=== PATIENT | female | born 1990 | race Caucasian/White ===

== ENCOUNTER 2019-09-01 10:52 | Observation (INO) ==
[2019-09-01] MEDS ORDERED: OPTIRAY 320 125ml IV PRN (11:33)
--- NOTE | 2019-09-01 11:47 | CT Scan Report ---
CT SCAN OF THE BRAIN WITHOUT IV CONTRAST CLINICAL HISTORY: Slurred speech. COMPARISON STUDY: CT of the brain dated 08/30/2019. TECHNIQUE: Unenhanced axial CT scan of the brain is performed from the vertex to the skull base. A d ose lowering technique was utilized adhering to the principles of ALARA. CT DOSE: 1064.47 mGy.cm FINDINGS: Brain parenchyma: The brain parenchyma is normal in appearance. There is no hemorrhage, mass effect, or evidence of acute territorial ischemia by CT criteria. Torre-white matter differentiation is preser rk. No extra-axial fluid collection is seen. Ventricles, sulci, cisterns: Normal in configuration. Intracranial vasculature: The visualized intracranial vasculature at the skull base is normal in appe arance. Calvarium: Unremarkable. Sinuses and mastoids: The visualized paranasal sinuses are clear. The mastoid air cells are well pneu matized. Orbits: The bony orbits are grossly intact. IMPRESSION: No acute intracranial abnormality. ACT 112: Negative or not required by law. Electronically signed by: Johnathon Lin M.D. 09/01/2019 11:45 AM
[2019-09-01] MEDS ORDERED: levETIRAcetam 1,500 MG in 0.9 % SODIUM CHLORIDE 100 ML IV STA (11:48)
--- NOTE | 2019-09-01 11:51 | CT Scan Report ---
CT angio neck with con HISTORY: Mental status change slurred speech TECHNIQUE: Multiaxial CT angiography of the neck was performed IV contrast: 120 cc nonionic All christian urements were calculated based on NASCET criteria. Maximum intensity projection images were also obt ained. A dose lowering technique was utilized adhering to the principles of ALARA. COMPARISON STUDY: None. FINDINGS: The aortic arch and proximal great vessels are widely patent. There is no significant sten osis, occlusion, or dissection identified within the bilateral common carotid, internal carotid, or v ertebral arteries. Relatively small caliber right vertebral vessel presumably on a congenital basis. IMPRESSION: No significant stenosis, occlusion, or dissection identified within the carotid or vertebral arteries . Small caliber right vertebral artery presumably on a congenital basis. ACT 112: Negative or not required by law. The above report was generated using voice recognition software. It may contain grammatical, syntax or spelling errors. Electronically signed by: Philipp Mendiola M.D. 09/01/2019 11:50 AM
--- NOTE | 2019-09-01 12:00 | CT Scan Report ---
CT ANGIOGRAM OF THE BRAIN CLINICAL HISTORY: Slurred speech. COMPARISON STUDY: Unenhanced CT of the brain performed concurrently on 09/01/2019. TECHNIQUE: Following the IV administration of 118 cc of Optiray 320, CT angiogram of the brain was pe rformed from the skull base to the vertex. Images are reviewed in the axial, sagittal, and coronal pl anes. 3-D MIPS images are created and assessed. IV contrast was administered without complication. A dose lowering technique was utilized adhering to the principles of ALARA. FINDINGS: Brain parenchyma: The brain parenchyma is normal in appearance. There is no hemorrhage, mass effect, or evidence of acute territorial ischemia by CT criteria. There is no evidence of enhancing mass lesi on on the angiogram phase images. No extra-axial fluid collection is seen. Torre-white matter differen tiation is preserved. Ventricles, sulci, and cisterns: Normal in configuration. CT angiogram of the brain: There is origin of the left posterior cerebral artery. The right P1 segment is diminutive. The internal carotid arteries are widely patent, as are the anterior and middl e cerebral arteries. The vertebrobasilar system and posterior cerebral arteries are widely patent. Th e left vertebral artery is dominant. The basilar artery and the right vertebral artery are diminutive . There is no aneurysm, high-grade stenosis, or focal vessel cutoff identified throughout the intracr anial circulation. Dural sinuses: Clear as visualized. Orbits: The bony orbits are intact. The orbital contents are normal as visualized. Sinuses and mastoids: A 1.8 cm retention cyst is noted in the right maxillary antrum. The remaining p aranasal sinuses are clear. The mastoid air cells are well pneumatized. Calvarium: Unremarkable. IMPRESSION: 1. There is no hemorrhage, mass effect, or evidence of acute territorial ischemia by CT criteria noti ng angiographic phase technique. 2. Unremarkable CT angiogram of the brain. ACT 112: Negative or not required by law. Electronically signed by: Johnathon Lin M.D. 09/01/2019 11:59 AM
[2019-09-01 12:14] LABS: Basophils # (auto) 0.04 K/uL (0-0.2); Basophils % (auto) 0.4 %; Eosinophils # (auto) 0.07 K/uL (0-0.5); Eosinophils % (auto) 0.6 %; Hematocrit (blood only) 39.6 % (37-47); Hemoglobin 12.9 g/dL (12.0-16.0); Immature Granulocytes # (auto) 0.02 K/uL (0.00-0.02); Immature Granulocytes % (auto) 0.2 %; Lymphocytes # (auto) 1.66 K/uL (1.2-3.4); Lymphocytes % (auto) 15.3 %; Mean Corpuscular Hemoglobin 28.9 pg (25-34); Mean Corpuscular Hgb Conc 32.6 g/dL (32-36); Mean Corpuscular Volume 88.6 fL (80-100); Mean Platelet Volume 11.2 fL (7.4-10.4); Monocytes # (auto) 0.66 K/uL (0.11-0.59); Monocytes % (auto) 6.1 %; Neutrophils # (auto) 8.38 K/uL (1.4-6.5); Neutrophils % (auto) 77.4 %; Platelet Count 351 K/uL (130-400); RDW Coefficient of Variation 14.3 % (11.5-14.5); RDW Standard Deviation 46.2 fL (36.4-46.3); Red Blood Count 4.47 M/uL (4.2-5.4); White Blood Count 10.83 K/uL (4.8-10.8)
[2019-09-01 12:24] LABS: INR 1.1 (0.9-1.1); Partial Thromboplastin Ratio 0.9; Prothrombin Time 11.1 Seconds (9.0-12.0)
--- NOTE | 2019-09-01 12:24 | Emergency Department Note ---
History of Present Illness General Chief complaint: Syncope History of Present Illness This patient is a 28-year-old female who presents the emergency department via ambulance for evaluation of a near syncopal episode that occurred this morning. The patient reports that she started uncontrollably crying at around 9 AM this morning. She reports not feeling sad. Shortly thereafter, the patient went to work. She slumped to the ground. She was reportedly unresponsive. No injuries were reported. The patient had a similar episode 2 days ago. She came to the emergency department. A work-up including imaging was performed. She since then followed up with neurology. The patient has an EEG pending. She reports a mild frontal headache, which she related to the crying this morning. She has not taken anything [id number] for his symptoms. Home Medications Home Medications Medication Instructions Recorded Confirmed Type famotidine [Pepcid AC] 10 mg PO DAILY PRN 08/30/19 09/01/19 History omeprazole magnesium [Prilosec OTC] 20 mg PO DAILY PRN 08/30/19 09/01/19 History Allergies Allergy/AdvReac Type Severity Reaction Status Date / Time nickel Allergy Intermediate Skin Verified 09/01/19 12:34 Irritations Past Med/Surg History Medical History Acid reflux Surgical History No pertinent past surgical history Social History Preferred Language: Kiswahili Communication Ability: Effective Beliefs That Will Affect Care: None marital status: Single 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 [employer] Other Information That Helps Us Care for You: No Feels Safe at Home: Yes Safety Concerns: Feels Safe At This Time Smoking Status: Former smoker Smoking End Date: 2011 ; Hx Alcohol Use: Yes (Occasional) Alcohol type: wine Alcohol Intake Frequency: Weekly Hx Substance Use: No Review of Systems A total of 10 systems reviewed and were otherwise negative Physical Exam Vital Signs Vital Signs - 24 hr 09/01/19 12:30 09/01/19 13:30 Pulse Rate 77 73 Pulse Rate from SpO2 Sensor 78 74 Respiratory Rate 14 20 Blood Pressure 132/91 134/82 Blood Pressure Mean 100 104 Pulse Oximetry 98 99 Oxygen Delivery Method Room Air Room Air Constitutional WD/WN, vitals as above Eyes EOM intact bilaterally ENMT external ear and nose normal, oropharynx normal Neck trachea midline Respiratory normal respiratory effort, lungs clear to auscultation Cardiovascular RRR, no murmur, no edema Gastrointestinal (Abdomen) normal bowel sounds, soft, nontender, no hepatosplenomegaly Musculoskeletal no cyanosis or clubbing, extremities motor strength 5/5 Skin no rashes, warm and dry Neurologic Alert and oriented x3. Slurred and stuttering speech noted. Cranial nerves appear to be intact. Rapid alternating movements intact. No focal motor deficits. Psychiatric Acting appropriately Course Course Patient was seen and examined Vital signs including blood pressure were reviewed I discussed the case with my supervising physician. A stroke alert was called. I spoke with Dr. Chun, neurology from [facility]. The patient proceeded to imaging where she had a seizure that was reported as her right arm shaking and her eyes fluttering. This lasted a few seconds. When the patient returned, she was reevaluated. She was coherent and stable. Her speech was improved. The patient was also evaluated by my supervising physician. She was ordered Keppra [facility] evaluate the patient for likely inpatient management. The patient remained stable in the emergency department. Consultations Consultation #1: Dr. Chun [facility] Administered Medications Gadobutrol (Gadavist 65ml) 7.5 ml IV ONCE PRN PRN Reason: Interaction Checking Stop: 09/05/19 15:17 Last Admin: 09/01/19 15:19 Dose: 7.5 ml Documented by: [id number] Levetiracetam 500 mg/ Sodium (Chloride) 105 mls @ 420 mls/hr IV BID JOCELYN Stop: 10/01/19 20:59 Last Infusion: 09/01/19 22:12 Dose: 0 mls/hr Documented by: [id number] Admin: 09/01/19 21:25 Dose: 420 mls/hr Documented by: [id number] Discontinued Medications Levetiracetam 1,500 mg/ Sodium (Chloride) 115 mls @ 440 mls/hr IV NOW STA Stop: 09/01/19 12:02 Last Infusion: 09/01/19 12:35 Dose: 0 mls/hr Documented by: [id number] Admin: 09/01/19 12:10 Dose: 440 mls/hr Documented by: [id number] Sodium Chloride (Nss 1000ml) 1,000 mls @ 999 mls/hr IV .Q1H1M ONE Stop: 09/01/19 14:08 Last Infusion: 09/01/19 14:23 Dose: 0 mls/hr Documented by: [id number] Admin: 09/01/19 13:22 Dose: 999 mls/hr Documented by: [id number] Levetiracetam 500 mg/ Dextrose 105 mls @ 420 mls/hr IV NOW ONE Stop: 09/02/19 09:14 Last Infusion: 09/02/19 09:28 Dose: 0 mls/hr Documented by: [id number] Admin: 09/02/19 09:01 Dose: 420 mls/hr Documented by: [id number] Ioversol (Optiray 320 125ml) 118 ml IV ONCE PRN PRN Reason: Interaction Checking Stop: 09/05/19 11:32 Last Admin: 09/01/19 11:33 Dose: 118 ml Documented by: [id number] Medical Decision Making Medical Records Attestation: I reviewed the patient's medical records. Home Medications Current Medication List: was personally reviewed by me Laboratory Data Attestation: I reviewed the patient's lab results. Result diagrams: 09/01/19 11:48 09/02/19 05:57 Lab Results 09/01/19 09/01/19 09/01/19 Range/Units 11:48 11:48 11:48 WBC 10.83 H (4.8-10.8) K/uL RBC 4.47 (4.2-5.4) M/uL Hgb 12.9 (12.0-16.0) g/dL Hct 39.6 (37-47) % MCV 88.6 (80-100) fL MCH 28.9 (25-34) pg MCHC 32.6 (32-36) g/dL RDW Std Deviation 46.2 (36.4-46.3) fL RDW Coeff of Aparna 14.3 (11.5-14.5) % Plt Count 351 (130-400) K/uL MPV 11.2 H (7.4-10.4) fL Immature Gran % (Auto) 0.2 % Neut % (Auto) 77.4 % Lymph % (Auto) 15.3 % [place] % (Auto) 6.1 % Eos % (Auto) 0.6 % Baso % (Auto) 0.4 % Neut # (Auto) 8.38 H (1.4-6.5) K/uL Lymph # (Auto) 1.66 (1.2-3.4) K/uL [place] # (Auto) 0.66 H (0.11-0.59) K/uL Eos # (Auto) 0.07 (0-0.5) K/uL Baso # (Auto) 0.04 (0-0.2) K/uL Immature Gran # (Auto) 0.02 (0.00-0.02) K/uL Peripher Smr Path Cons ESR (0-21) mm/hr PT 11.1 (9.0-12.0) Seconds INR 1.1 (0.9-1.1) APTT 26.0 (21.0-31.0) Seconds PTT Ratio 0.9 Sodium 140 (136-145) mmol/L Potassium 4.6 D (3.5-5.1) mmol/L Chloride 107 (98-107) mmol/L Carbon Dioxide 22 (21-32) mmol/L Anion Gap 11.0 (3-11) BUN 19 H D (7-18) mg/dl Creatinine 0.80 (0.6-1.2) mg/dl Est Cr Clr Drug Dosing 98.3 ml/min Est GFR ( Amer) 115.5 Est GFR (Non-Af Amer) 99.6 BUN/Creatinine Ratio 23.1 H (10-20) Glucose 79 (70-99) mg/dl Calcium 8.4 L (8.5-10.1) mg/dl Magnesium 2.2 (1.8-2.4) mg/dl Total Bilirubin 0.3 (0.2-1) mg/dl AST 10 L (15-37) U/L ALT 15 (12-78) U/L Alkaline Phosphatase 77 (45-117) U/L CK-MB (CK-2) < 1.0 (0.5-3.6) ng/ml Troponin I < 0.015 (0-0.045) ng/ml C-Reactive Protein (0-0.29) mg/dl Total Protein 7.1 (6.4-8.2) gm/dl Albumin 3.3 L (3.4-5.0) gm/dl Globulin 3.8 (2.5-4.0) gm/dl Albumin/Globulin Ratio 0.9 (0.9-2) TSH (0.300-4.500) uIu/ml Urine Color Urine Appearance (Clear) Urine pH (4.5-7.5) Ur Specific Falcon (1.000-1.030) Urine Protein (Negative) Urine Glucose (UA) (Negative) Urine Ketones (Negative) Urine Blood (Negative) Urine Nitrite (Negative) Urine Bilirubin (Negative) Urine Urobilinogen (Negative) Ur Leukocyte Esterase (Negative) Urine Opiates Screen (Neg) Ur Methadone, Qual (Neg) Urine Barbiturates (Neg) Ur Phencyclidine (PCP) (Neg) U Amphetamin/Meth Scrn (Neg) MDMA (Ecstasy) Screen (Neg) U Benzodiazepines Scrn (Neg) Ur Cocaine Metabolite (Neg) U Marijuana (THC) Screen (Neg) Ethyl Alcohol mg/dL (0-3) mg/dl 09/01/19 09/01/19 09/01/19 Range/Units 11:48 11:48 12:10 WBC (4.8-10.8) K/uL RBC (4.2-5.4) M/uL Hgb (12.0-16.0) g/dL Hct (37-47) % MCV (80-100) fL MCH (25-34) pg MCHC (32-36) g/dL RDW Std Deviation (36.4-46.3) fL RDW Coeff of Aparna (11.5-14.5) % Plt Count (130-400) K/uL MPV (7.4-10.4) fL Immature Gran % (Auto) % Neut % (Auto) % Lymph % (Auto) % [place] % (Auto) % Eos % (Auto) % Baso % (Auto) % Neut # (Auto) (1.4-6.5) K/uL Lymph # (Auto) (1.2-3.4) K/uL [place] # (Auto) (0.11-0.59) K/uL Eos # (Auto) (0-0.5) K/uL Baso # (Auto) (0-0.2) K/uL Immature Gran # (Auto) (0.00-0.02) K/uL Peripher Smr Path Cons ESR 16 (0-21) mm/hr PT (9.0-12.0) Seconds INR (0.9-1.1) APTT (21.0-31.0) Seconds PTT Ratio Sodium (136-145) mmol/L Potassium (3.5-5.1) mmol/L Chloride (98-107) mmol/L Carbon Dioxide (21-32) mmol/L Anion Gap (3-11) BUN (7-18) mg/dl Creatinine (0.6-1.2) mg/dl Est Cr Clr Drug Dosing ml/min Est GFR ( Amer) Est GFR (Non-Af Amer) BUN/Creatinine Ratio (10-20) Glucose (70-99) mg/dl Calcium (8.5-10.1) mg/dl Magnesium (1.8-2.4) mg/dl Total Bilirubin (0.2-1) mg/dl AST (15-37) U/L ALT (12-78) U/L Alkaline Phosphatase (45-117) U/L CK-MB (CK-2) (0.5-3.6) ng/ml Troponin I (0-0.045) ng/ml C-Reactive Protein 0.45 H (0-0.29) mg/dl Total Protein (6.4-8.2) gm/dl Albumin (3.4-5.0) gm/dl Globulin (2.5-4.0) gm/dl Albumin/Globulin Ratio (0.9-2) TSH 0.783 (0.300-4.500) uIu/ml Urine Color Urine Appearance (Clear) Urine pH (4.5-7.5) Ur Specific Falcon (1.000-1.030) Urine Protein (Negative) Urine Glucose (UA) (Negative) Urine Ketones (Negative) Urine Blood (Negative) Urine Nitrite (Negative) Urine Bilirubin (Negative) Urine Urobilinogen (Negative) Ur Leukocyte Esterase (Negative) Urine Opiates Screen (Neg) Ur Methadone, Qual (Neg) Urine Barbiturates (Neg) Ur Phencyclidine (PCP) (Neg) U Amphetamin/Meth Scrn (Neg) MDMA (Ecstasy) Screen (Neg) U Benzodiazepines Scrn (Neg) Ur Cocaine Metabolite (Neg) U Marijuana (THC) Screen (Neg) Ethyl Alcohol mg/dL < 3.0 (0-3) mg/dl 09/01/19 09/01/19 Range/Units 12:45 12:45 WBC (4.8-10.8) K/uL RBC (4.2-5.4) M/uL Hgb (12.0-16.0) g/dL Hct (37-47) % MCV (80-100) fL MCH (25-34) pg MCHC (32-36) g/dL RDW Std Deviation (36.4-46.3) fL RDW Coeff of Aparna (11.5-14.5) % Plt Count (130-400) K/uL MPV (7.4-10.4) fL Immature Gran % (Auto) % Neut % (Auto) % Lymph % (Auto) % [place] % (Auto) % Eos % (Auto) % Baso % (Auto) % Neut # (Auto) (1.4-6.5) K/uL Lymph # (Auto) (1.2-3.4) K/uL [place] # (Auto) (0.11-0.59) K/uL Eos # (Auto) (0-0.5) K/uL Baso # (Auto) (0-0.2) K/uL Immature Gran # (Auto) (0.00-0.02) K/uL Peripher Smr Path Cons ESR (0-21) mm/hr PT (9.0-12.0) Seconds INR (0.9-1.1) APTT (21.0-31.0) Seconds PTT Ratio Sodium (136-145) mmol/L Potassium (3.5-5.1) mmol/L Chloride (98-107) mmol/L Carbon Dioxide (21-32) mmol/L Anion Gap (3-11) BUN (7-18) mg/dl Creatinine (0.6-1.2) mg/dl Est Cr Clr Drug Dosing ml/min Est GFR ( Amer) Est GFR (Non-Af Amer) BUN/Creatinine Ratio (10-20) Glucose (70-99) mg/dl Calcium (8.5-10.1) mg/dl Magnesium (1.8-2.4) mg/dl Total Bilirubin (0.2-1) mg/dl AST (15-37) U/L ALT (12-78) U/L Alkaline Phosphatase (45-117) U/L CK-MB (CK-2) (0.5-3.6) ng/ml Troponin I (0-0.045) ng/ml C-Reactive Protein (0-0.29) mg/dl Total Protein (6.4-8.2) gm/dl Albumin (3.4-5.0) gm/dl Globulin (2.5-4.0) gm/dl Albumin/Globulin Ratio (0.9-2) TSH (0.300-4.500) uIu/ml Urine Color Yellow Urine Appearance Clear (Clear) Urine pH 5.0 (4.5-7.5) Ur Specific Falcon > 1.045 H (1.000-1.030) Urine Protein Negative (Negative) Urine Glucose (UA) Negative (Negative) Urine Ketones Trace H (Negative) Urine Blood Negative (Negative) Urine Nitrite Negative (Negative) Urine Bilirubin Negative (Negative) Urine Urobilinogen Negative (Negative) Ur Leukocyte Esterase Negative (Negative) Urine Opiates Screen Neg (Neg) Ur Methadone, Qual Neg (Neg) Urine Barbiturates Neg (Neg) Ur Phencyclidine (PCP) Neg (Neg) U Amphetamin/Meth Scrn Neg (Neg) MDMA (Ecstasy) Screen Neg (Neg) U Benzodiazepines Scrn Neg (Neg) Ur Cocaine Metabolite Neg (Neg) U Marijuana (THC) Screen Neg (Neg) Ethyl Alcohol mg/dL (0-3) mg/dl Imaging Data Attestation: I personally reviewed and interpreted this imaging study as follows: Radiologist's Impression: CT head without contrast IMPRESSION: No acute intracranial abnormality. ACT 112: Negative or not required by law. Electronically signed by: Johnathon Lin M.D. 09/01/2019 11:45 AM CTA head and neck IMPRESSION: No significant stenosis, occlusion, or dissection identified within the carotid or vertebral arteries. Small caliber right vertebral artery presumably on a congenital basis. ACT 112: Negative or not required by law. The above report was generated using voice recognition software. It may contain grammatical, syntax or spelling errors. Electronically signed by: Philipp Mendiola M.D. 09/01/2019 11:50 AM Dictated: 09/01/19 1145 Transcribed: 09/01/19 1145 IMPRESSION: 1. There is no hemorrhage, mass effect, or evidence of acute territorial ischemia by CT criteria noting angiographic phase technique. 2. Unremarkable CT angiogram of the brain. ACT 112: Negative or not required by law. Electronically signed by: Johnathon Lin M.D. 09/01/2019 11:59 AM Chest x-ray ECG Data Attestation: I personally reviewed and interpreted this ECG as follows: Indication: + other Rate (beats per minute): 93 Rhythm: + normal sinus Additional Comments: No ectopy noted. No acute ischemic changes noted. No change when compared to prior study. MDM Narrative Differential diagnosis: Atypical migraine, seizure, intracranial abnormality, aneurysm, cardiac arrhythmia, electrolyte abnormality, drug use, among others This patient is a 28-year-old female who presented to the emergency department for evaluation of a near syncopal episode and stuttered/slurred speech. On exam, she did have slurred and stuttering speech. Otherwise, she was neuro logically intact. Labs are fairly unremarkable. EKG does not show any signs of ischemia or arrhythmia. Due to the fact that the patient did have neurologic symptoms, a stroke alert was called. I spoke with her she. She was sent for a CT/CTA of her head and neck. This did not show any acute findings. Unfortunately, the patient had a possible seizure over a CAT scan. I did not personally witness this. This is likely the culprit of her symptoms. The patient symptoms did improve in the emergency department. I did not however feel comfortable sending her home as this will be a new diagnosis of seizures. She was loaded with Keppra. Hospitalist was consulted. She will be admitted for inpatient treatment. Impression & Plan Seizure-like activity Discharge Plan Visit Data *Final* Discharge Date/Time: 09/01/19 14:51 Chief Complaint: Syncope ED Provider: Michael Dey ED Midlevel Provider: Ivonne Dunn Discharge Problem: Seizure-like activity Patient Disposition: Admitted As Inpatient Condition: Fair Discharge Instructions Interventions: ED Discharge Assessment Last Done: 09/01/19 14:51
[2019-09-01 12:33] LABS: Alanine Aminotransferase 15 U/L (12-78); Albumin Level 3.3 gm/dl (3.4-5.0); BUN Creatinine Ratio 23.1 (10-20); Blood Urea Nitrogen 19 mg/dl (7-18); Calcium 8.4 mg/dl (8.5-10.1); Carbon Dioxide 22 mmol/L (21-32); Chloride 107 mmol/L (98-107); Creatinine Clr Calc Pharmacy 98.3 ml/min; Est GFR (African American) 115.5; Est GFR (Non-African American) 99.6; Glucose 79 mg/dl (70-99)
[2019-09-01 12:38] LABS: Potassium 4.6 mmol/L (3.5-5.1); Sodium 140 mmol/L (136-145)
[2019-09-01 12:42] LABS: Aspartate Aminotransferase 10 U/L (15-37); Magnesium 2.2 mg/dl (1.8-2.4)
[2019-09-01 12:44] LABS: Albumin Globulin Ratio 0.9 (0.9-2); Alkaline Phosphatase 77 U/L (45-117); Bilirubin,Total 0.3 mg/dl (0.2-1); Creatine Kinase MB < 1.0 ng/ml (0.5-3.6); Globulin 3.8 gm/dl (2.5-4.0); Total Protein 7.1 gm/dl (6.4-8.2); Troponin I < 0.015 ng/ml (0-0.045)
[2019-09-01] MEDS ORDERED: SODIUM CHLORIDE 0.9% 1000ML 1,000 ML IV ONE (13:08)
[2019-09-01 13:22] LABS: Amphetamines+Metham, Urine Neg (Neg); Barbiturates, Urine Neg (Neg); Benzodiazepine, Urine Neg (Neg); Cocaine, Urine Neg (Neg); MDMA (Ecstacy), Urine Neg (Neg); Methadone, Urine Neg (Neg); Opiate, Urine Neg (Neg); Phencyclidine, Urine Neg (Neg)
--- NOTE | 2019-09-01 13:43 | History & Physical Report ---
Date of Service September 01, 2019 Assessment & Plan (1) Seizure-like activity: (2) Syncope: Patient is a 28-year-old female with PMH of GERD who presents after multiple near syncopal/syncopal episodes earlier today and then had witnessed seizure-like activity since arrival. -Multiple episodes of near-syncope/syncope vs. seizure like activity in past 3 days, was awaiting OP EEG but episodes increased in frequency today -Had 1 episode of seizure-like activity today while at CT and was loaded with 1,500mg Keppra -Work up: CT head with no acute intracranial abnormality. CTA head without any acute abnormality. 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 Brain MRI w/wo normal study, mild leukocytosis of 10.8k, electrolytes within normal limits, TSH normal, ESR normal, CRP mildly elevated at 0.45, UA and Utox without abnormalities -Pending: EEG (likely to be done tomorrow morning), 2D echo, lead level, peripheral smear, repeat orthostatic vitals -Discussed with Dr. Melara of neurology. Not a typical presentation for seizure but need to further evaluate with EEG. Continue Keppra 500mg BID for now. Monitory on telemetry, check lab work, obtain echo as well DVT Ppx: latricai jeanbala Code status: FULL PCP: Carina Dispo: Admit to PCU. Plan to return home once medically stable. Patient seen in collaboration with Dr. Hardwick. Please see addendum. History of Present Illness Chief Complaint: Syncope/seizure-like activity Primary Care Provider: Abbi Lim, DO Patient is a 28-year-old female with PMH of GERD who presents after multiple near-syncopal/syncopal episodes earlier today. Patient was initially evaluated on 08/29 in ED after becoming lightheaded at work, followed by witnessed syncopal episode. When patient came to, nurses at the scene state that her eyes were unfocused and lower limbs stiffened. Patient also had slurred and stuttering speech following episode. When patient was moved from lying down to sitting, episode recurred. Was evaluated in ED with plans for outpatient EEG and close neurological follow-up. Saw Vanna Alonso PA-C in neurologic clinic the following day, who felt that episodes seem more syncopal in nature but wanted an EEG to further evaluate for seizure disorder. Also referred to PCP for further work-up of possible cardiac etiology but patient has not yet been seen. Upon waking up today, patient felt fine until she started to have uncontrollable crying despite not feeling sad. Then had a similar episode where she felt that she may lose consciousness so she sat down and was then said to be unresponsive by a friend for a minute. Had 3 more episodes similar to this witnessed by significant other before being brought to the ED by EMS. Stroke alert was called initially with recommendation for CTA head/neck but while in CT machine, patient had a reported seizure episode with stiffening limbs and some tonic- clonic movements that resolved after a few minutes. Was loaded with 1,500mg Keppra. Patient was fatigued afterwards with slurred and stuttering speech. Denies any tongue biting or bowel or bladder incontinence with any of the episodes. Now feels mild lightheadedness and fatigue but all other symptoms have resolved and speech has returned to normal. No known neurological history in patient or family. Denies any fever, chills, headache, confusion, cough, congestion, chest pain, shortness of breath, nausea, vomiting, abdominal pain, dysuria, diarrhea or constipation. Has Nexplanon implant for control. Denies any drug use. Possible tick exposure due to living in the [facility] home. Has been renovating house built in 1901 with significant other for the past 4 months. Concern for toxic exposures. 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 Other Information That Helps Us Care for You: No Feels Safe at Home: Yes Safety Concerns: Feels Safe At This Time Smoking Status: Former smoker Smoking End Date: 2011 ; Hx Alcohol Use: Yes (Occasional) Alcohol type: wine Alcohol Intake Frequency: Weekly Hx Substance Use: No Review of Systems Review of Systems: At least ten systems reviewed and negative except as noted in the HPI. Physical Exam Physical Exam: General Appearance: WD/WN, vitals as above, NAD, sitting up in bed, pleasant, conversing easily Head: normocephalic, atraumatic Eyes: normal inspection, PERRL, conjunctivae normal, anicteric sclerae ENT: external ear and nose normal, oropharynx normal Neck: trachea midline, no thyromegaly, normal visual inspection Respiratory: normal respiratory effort, lungs clear to auscultation, no wheeze, rales, rhonchi. Normal insp/exp effort, no accessory muscle use Cardiovascular: regular rate, rhythm, no murmur, normal peripheral pulses Chest: normal inspection of chest Abdomen/GI: normal bowel sounds, soft, nontender, no hepatosplenomegaly Extremities/Musculoskeletal: no cyanosis or clubbing, extremities motor strength 5/5 Neurologic: PERRL, EOMI, accommodation nl, no face palsy, no dysarthria, CN's II-XI intact bilaterally and moves all extremities Psychiatric: A+Ox3, euthymic affect Skin: no rashes, normal color, warm/dry Results & Data Results & Data ([facility]) Vital Signs (Past 12 Hours) Vital Signs Temp Pulse Resp BP Pulse Ox 09/01/19 12:30 77 14 132/91 98 09/01/19 12:00 74 14 127/89 100 09/01/19 11:55 76 16 130/97 100 09/01/19 11:00 36.5 C 79 13 129/87 100 Laboratory Results Short CBC 09/01/19 Range/Units 11:48 WBC 10.83 H (4.8-10.8) K/uL Hgb 12.9 (12.0-16.0) g/dL Hct 39.6 (37-47) % Plt Count 351 (130-400) K/uL BMP 09/01/19 11:48 Sodium 140 Potassium 4.6 D Chloride 107 Carbon Dioxide 22 BUN 19 H D Creatinine 0.80 Glucose 79 Calcium 8.4 L Cardiac Enzymes 09/01/19 Range/Units 11:48 CK-MB (CK-2) < 1.0 (0.5-3.6) ng/ml Troponin I < 0.015 (0-0.045) ng/ml Liver Function 09/01/19 Range/Units 11:48 Total Bilirubin 0.3 (0.2-1) mg/dl AST 10 L (15-37) U/L ALT 15 (12-78) U/L Alkaline Phosphatase 77 (45-117) U/L Albumin 3.3 L (3.4-5.0) gm/dl Urine 09/01/19 Range/Units 12:45 Urine Color Yellow Urine Appearance Clear (Clear) Urine pH 5.0 (4.5-7.5) Ur Specific [place] > 1.045 H (1.000-1.030) Urine Protein Negative (Negative) Urine Glucose (UA) Negative (Negative) Diagnostic Findings CT head: IMPRESSION: No acute intracranial abnormality. CTA head: IMPRESSION: 1. There is no hemorrhage, mass effect, or evidence of acute territorial ischemia by CT criteria noting angiographic phase technique. 2. Unremarkable CT angiogram of the brain. CTA neck: IMPRESSION: No significant stenosis, occlusion, or dissection identified within the carotid or vertebral arteries. Small caliber right vertebral artery presumably on a co ngenital basis. Brain MRI: IMPRESSION: Normal study. Code Status & VTE Plan VTE Prophylaxis Plan VTE Prophylaxis will be ordered: Yes Supervising Physician Co-Signing Physician Notes Patient seen and examined by me, care coordinated with Etta Aviles PA-C. Please see her note above for further detail. Ms. Pratt is a 28-year-old female, with no significant past medical history, besides GERD who has been having episodes of unresponsiveness, and seizure-like activity. She was first seen in the ED on August 29. At that time she was discharged home as she did not have any more episodes, CT head at that time was negative. 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 She would sit down, and then her colleague nurses would notice that she would not be responding to them, her eyes would go blank, fluttering, and her limbs would get stiff. This would again happen several times after she would be sitting up from laying position. She says that she felt well yesterday however today she had again these episodes of unresponsiveness, eye fluttering, limb stiffness. In the meantime she was seen by neurology as outpatient, by Vanna Alonso, and EEG was ordered as outpatient. Most recently today, she was at home, and had similar episode and therefore was brought by EMS to the ED. CT head negative, CTA unremarkable except for small caliber vessel on her right side, possible congenital. Then in the ED, while she was in the CT scanner she had again episode of this possibly seizure-like activity. Stroke alert was initially called however then it was called off. In the ED she was given 1500 IV Keppra. Urine tox was negative in the ED. Currently she sitting up in bed, and she says that she feels overall well. She has slight bilateral headache, but she says that it is feeling better. Jaw feels little stiff. Denies any incontinence or tongue biting. She denies any numbness or tingling. On physical exam there seems to be no sensory loss. She is alert and oriented, and answering questions appropriately. EOMI, PERRLA, normocephalic, atraumatic, neck supple. She is moving all extremities spontaneously and without difficulty, strength 5 out of 5 bilaterally. Lungs are clear to auscultation bilaterally, no wheezing or rhonchi. Heart sounds regular. Abdomen soft, nontender, nondistended, positive bowel sounds present. Skin is warm, dry, well perfused. Neurology contacted, EEG ordered, as well as MRI, recommend to continue Keppra. In addition, lead level will be obtained (patient reports remodeling [facility] ) as well as peripheral smear. MD Aria (1) Syncope Syncope type: unspecified Qualified Code(s): R55 - Syncope and collapse
[2019-09-01 13:56] LABS: Appearance Urine Clear (Clear); Bilirubin Urine Negative (Negative); Blood Urine Negative (Negative); Color Urine Yellow; Glucose Urine UA Negative (Negative); Ketones Urine Trace (Negative); Leukocyte Esterase Urine Negative (Negative); Nitrite Urine Negative (Negative); Protein Urine Negative (Negative); Specific Gravity Urine > 1.045 (1.000-1.030); Urobilinogen Urine Negative (Negative)
[2019-09-01 14:31] LABS: C Reactive Protein 0.45 mg/dl (0-0.29); Thyroid Stimulating Hormone 0.783 uIu/ml (0.300-4.500)
[2019-09-01] MEDS ORDERED: GADOBUTROL 65ML VIAL IV PRN (15:18)
--- NOTE | 2019-09-01 15:36 | Magnetic Resonance Report ---
MR brain seizure wo/w con CLINICAL HISTORY: seizure like activity vs syncope COMPARISON STUDY: No previous studies for comparison. TECHNIQUE: Utilizing a 1.5 Nohemi magnet and dedicated coil, multiplanar, multiecho imaging of the br ain was performed pre and postcontrast administration. IV administration of [address] was uneventful. Thin cut coronal T2 imaging was performed according to seizure protocol. FINDINGS: Diffusion images are normal. Signal characteristics of the cerebellar as well as cerebral h emispheres are unremarkable. The ventricular system is midline. Postcontrast images are considered negative for enhancing lesion. The sella and parasellar regions are unremarkable. The internal auditory canals are symmetric. IMPRESSION: Normal study. ACT 112: Negative or not required by law. The above report was generated using voice recognition software. It may contain grammatical, syntax or spelling errors. Electronically signed by: Philipp Mendioal M.D. 09/01/2019 3:35 PM
[2019-09-01] MEDS ORDERED: ONDANSETRON INJ 2 MG/ML 2 ML VIAL IV PRN (16:05)
[2019-09-01] MEDS ORDERED: ACETAMINOPHEN 325 MG TAB PO PRN (16:05)
[2019-09-01] MEDS ORDERED: POLYETHYLENE (MIRALAX) 17 GM PACK PO PRN (16:05)
[2019-09-01] MEDS ORDERED: levETIRAcetam 500 MG in 0.9 % SODIUM CHLORIDE 100 ML IV SCH (21:00)
[2019-09-02 06:47] LABS: BUN Creatinine Ratio 13.6 (10-20); Calcium 8.3 mg/dl (8.5-10.1); Est GFR (Non-African American) 111.3; Potassium 4.1 mmol/L (3.5-5.1)
--- NOTE | 2019-09-02 07:24 | Electrocardiogram Report ---
Test Reason : Blood Pressure : / mmHG Vent. Rate : 093 BPM Atrial Rate : 093 BPM P-R Int : 128 ms QRS Dur : 076 ms QT Int : 364 ms P-R-T Axes : 035 045 038 degrees QTc Int : 452 ms Normal sinus rhythm Normal ECG When compared with ECG of 30-AUG-2019 16:29, No significant change was found Confirmed by Vish Dunne ([id number]) on 09/02/2019 7:23:54 AM Referred By: REFERRED SELF Confirmed By:Vish Dunne
[2019-09-02 09:07] LABS: Phosphorus 2.7 mg/dl (2.5-4.9)
--- NOTE | 2019-09-02 11:21 | Electroencephalogram ---
EEG Procedure Note Date of Service September 02, 2019 Start / End Times Start Time: 07:40 End Time: 08:00 Referring Physician Etta Aviles PA-C History A 28 year old woman with witnessed seizure. EEG performed for evaluation of epileptiform activity. Home Medication List Home Medications Medication Instructions Recorded Confirmed Type famotidine [Pepcid AC] 10 mg PO DAILY PRN 08/30/19 09/01/19 History omeprazole magnesium [Prilosec OTC] 20 mg PO DAILY PRN 08/30/19 09/01/19 History Inpatient Medication List Gadobutrol (Gadavist 65ml) 7.5 ml IV ONCE PRN PRN Reason: Interaction Checking Stop: 09/05/19 15:17 Last Admin: 09/01/19 15:19 Dose: 7.5 ml Documented by: [id number] Levetiracetam 500 mg/ Sodium (Chloride) 105 mls @ 420 mls/hr IV BID JOCELYN Stop: 10/01/19 20:59 Last Infusion: 09/01/19 22:12 Dose: 0 mls/hr Documented by: [id number] Admin: 09/01/19 21:25 Dose: 420 mls/hr Documented by: [id number] Discontinued Medications Levetiracetam 1,500 mg/ Sodium (Chloride) 115 mls @ 440 mls/hr IV NOW STA Stop: 09/01/19 12:02 Last Infusion: 09/01/19 12:35 Dose: 0 mls/hr Documented by: [id number] Admin: 09/01/19 12:10 Dose: 440 mls/hr Documented by: [id number] Sodium Chloride (Nss 1000ml) 1,000 mls @ 999 mls/hr IV .Q1H1M ONE Stop: 09/01/19 14:08 Last Infusion: 09/01/19 14:23 Dose: 0 mls/hr Documented by: [id number] Admin: 09/01/19 13:22 Dose: 999 mls/hr Documented by: [id number] Levetiracetam 500 mg/ Dextrose 105 mls @ 420 mls/hr IV NOW ONE Stop: 09/02/19 09:14 Last Infusion: 09/02/19 09:28 Dose: 0 mls/hr Documented by: [id number] Admin: 09/02/19 09:01 Dose: 420 mls/hr Documented by: [id number] Ioversol (Optiray 320 125ml) 118 ml IV ONCE PRN PRN Reason: Interaction Checking Stop: 09/05/19 11:32 Last Admin: 09/01/19 11:33 Dose: 118 ml Documented by: [id number] Description This is a 21 electrode EEG with a single channel dedicated to limited EKG. The electrodes were placed in accordance with the International 10-20 system. REPORT: At the onset of the EEG, the patient is awake. The background activity consist of 10-11 Hz, persistent, posteriorly dominant, moderate amplitude, symmetric and rhythmic activity that is reactive to eye opening. Anteriorly, it consist of a mixture of low voltage indeterminate activity and 15-25 Hz, persistent, low amplitude, symmetric and rhythmic activity. Stepwise intermittent photic stimulation does not induce any abnormalities. Drowsiness is characterized by low amplitude mixed frequency activity, roving eye movements, and decreased eye blinking and muscle artifact. IMPRESSION: This is a normal awake and drowsy EEG. There is no evidence of focal slowing or epileptiform activity.
[2019-09-02 12:40] LABS: Hematocrit (blood only) 37.6 % (37-47); Hemoglobin 12.1 g/dL (12.0-16.0); Mean Corpuscular Hemoglobin 28.9 pg (25-34); Mean Corpuscular Hgb Conc 32.2 g/dL (32-36); Mean Corpuscular Volume 89.7 fL (80-100); Mean Platelet Volume 11.1 fL (7.4-10.4); Platelet Count 347 K/uL (130-400); RDW Coefficient of Variation 14.2 % (11.5-14.5); RDW Standard Deviation 46.6 fL (36.4-46.3); Red Blood Count 4.19 M/uL (4.2-5.4); White Blood Count 9.37 K/uL (4.8-10.8)
--- NOTE | 2019-09-02 12:59 | Hospitalist Progress Note ---
Date of Service September 02, 2019 Assessment & Plan (1) Seizure-like activity: (2) Syncope: Patient is a 28-year-old female with PMH of GERD who presents after multiple near syncopal/syncopal episodes earlier today and then had witnessed seizure-like activity since arrival. -Multiple episodes of near-syncope/syncope vs. seizure like activity in past 3 days, was awaiting OP EEG but episodes increased in frequency today -Had 1 episode of seizure-like activity today while at CT and was loaded with 1,500mg Keppra -Work up: CT head with no acute intracranial abnormality. CTA head without any acute abnormality. 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 Brain MRI w/wo normal study, mild leukocytosis of 10.8k, electrolytes within normal limits, TSH normal, ESR normal, CRP mildly elevated at 0.45, UA and Utox without abnormalities -09/01/2019 lead levels and peripheral smear pending -patient was given Keppra 500 mg IV BID while in the hospital -hospital EEG reviewed by Dr. Melara -as per Dr. Melara of neurology, patient can be discharged with prescription of oral Keppra 500 mg twice a day -sent electronically to [facility] on [address], [place] [address] -patient affirms wishes to be discharged from hospital and she will schedule the outpatient follow ups -patient should follow up with primary care Dr. Lim on [address] [place] [address] patient should follow up neurology clinic on [address] [place] [address]. Patient to call for appointment as instructed by Dr. Melara of neurology patient is advised to abstain from driving sinus arrhythmia on telemetry -normal echocardiogram -no evidence of atrial fibrillation Admission and Anticipated Discharge Date Admission Date: September 01, 2019 Subjective no dizziness. no chest pain. no headache. no vomiting. eating the food. Review of Systems Review of Systems: All systems reviewed & are unremarkable except as noted in Subjective Physical Exam Constitutional: comfortable Eyes: PERRL, conjunctivae normal, anicteric sclerae EOM intact bilaterally ENMT: external ear and nose normal, oropharynx normal Neck: trachea midline, no thyromegaly normal visual inspection Respiratory: normal respiratory effort, lungs clear to auscultation Cardiovascular: Rate/Rhythm: regular rate Gastrointestinal (Abdomen): normal bowel sounds, soft, nontender, no hepatosplenomegaly Musculoskeletal: Head/Neck/Chest: normocephalic and head atraumatic Neurologic: PERRL, EOMI, accommodation nl, no face palsy, no dysarthria Psychiatric: A+Ox3, euthymic affect Results & Data Results & Data ([facility]) Vital Signs (Past 12 Hours) Vital Signs Temp Pulse Resp BP Pulse Ox 09/02/19 10:41 36.6 C 67 18 120/87 97 09/02/19 03:23 36.7 C 78 18 100/67 97 (1) Syncope Syncope type: unspecified Qualified Code(s): R55 - Syncope and collapse
--- NOTE | 2019-09-02 13:04 | Discharge Summary ---
Date of Service September 02, 2019 Admission HPI Per Admitting Provider Patient is a 28-year-old female with PMH of GERD who presents after multiple near-syncopal/syncopal episodes earlier today. Patient was initially evaluated on 08/29 in ED after becoming lightheaded at work, followed by witnessed syncopal episode. When patient came to, nurses at the scene state that her eyes were unfocused and lower limbs stiffened. Patient also had slurred and stuttering speech following episode. When patient was moved from lying down to sitting, episode recurred. Was evaluated in ED with plans for outpatient EEG and close neurological follow-up. Saw Vanna Alonso PA-C in neurologic clinic the following day, who felt that episodes seem more syncopal in nature but wanted an EEG to further evaluate for seizure disorder. Also referred to PCP for further work-up of possible cardiac etiology but patient has not yet been seen. Upon waking up today, patient felt fine until she started to have uncontrollable crying despite not feeling sad. Then had a similar episode where she felt that she may lose consciousness so she sat down and was then said to be unresponsive by a friend for a minute. Had 3 more episodes similar to this witnessed by significant other before being brought to the ED by EMS. Stroke alert was called initially with recommendation for CTA head/neck but while in CT machine, patient had a reported seizure episode with stiffening limbs and some tonic- clonic movements that resolved after a few minutes. Was loaded with 1,500mg Keppra. Patient was fatigued afterwards with slurred and stuttering speech. Denies any tongue biting or bowel or bladder incontinence with any of the episodes. Now feels mild lightheadedness and fatigue but all other symptoms have resolved and speech has returned to normal. No known neurological history in patient or family. Denies any fever, chills, headache, confusion, cough, congestion, chest pain, shortness of breath, nausea, vomiting, abdominal pain, dysuria, diarrhea or constipation. Has Nexplanon implant for control. Denies any drug use. Possible tick exposure due to living [place] the [place]. Has been renovating house built in 1901 with significant other for the past 4 months. Concern for toxic exposures. Principal Diagnosis Seizure-like activity Syncope sinus arrhythmia on telemetry Discharge Exam Constitutional WD/WN, vitals as above Eyes PERRL, conjunctivae normal, anicteric sclerae EOM intact bilaterally ENMT external ear and nose normal, oropharynx normal Neck trachea midline, no thyromegaly normal visual inspection Respiratory normal respiratory effort, lungs clear to auscultation Cardiovascular RRR, no murmur, no edema Gastrointestinal (Abdomen) normal bowel sounds, soft, nontender, no hepatosplenomegaly Musculoskeletal Head/Neck/Chest: normocephalic and head atraumatic Neurologic PERRL, EOMI, accommodation nl, no face palsy, no dysarthria CN's II-XI intact bilaterally Psychiatric A+Ox3, euthymic affect Discharge Data Allergies Allergy/AdvReac Type Severity Reaction Status Date / Time nickel Allergy Intermediate Skin Verified 09/01/19 12:34 Irritations Consultations 09/01/19 13:08 ED Decision to Admit Stat 09/01/19 13:43 Consult Neurology Routine 09/02/19 07:31 Consult Case Management - Discharge Planning Routine Ordered Studies 09/01/19 11:21 CT head/brain wo con Stat 09/01/19 11:27 CT angio neck with con Stat 09/01/19 11:28 CT angio head w con Stat 09/01/19 13:43 MR brain seizure wo/w con Urgent Hospital Course (1) Seizure-like activity: (2) Syncope: Patient is a 28-year-old female with PMH of GERD who presents after multi ple near syncopal/syncopal episodes earlier today and then had witnessed seizure-like activity since arrival. -Multiple episodes of near-syncope/syncope vs. seizure like activity in past 3 days, was awaiting OP EEG but episodes increased in frequency today -Had 1 episode of seizure-like activity today while at CT and was loaded with 1,500mg Keppra -Work up: CT head with no acute intracranial abnormality. CTA head without any acute abnormality. 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 Brain MRI w/wo normal study, mild leukocytosis of 10.8k, electrolytes within normal limits, TSH normal, ESR normal, CRP mildly elevated at 0.45, UA and Utox without abnormalities -09/01/2019 lead levels and peripheral smear pending -patient was given Keppra 500 mg IV BID while in the hospital -hospital EEG reviewed by Dr. Melara -as per Dr. Melara of neurology, patient can be discharged with prescription of oral Keppra 500 mg twice a day -sent electronically to [facility] on [address] [place] [address] -patient affirms wishes to be discharged from hospital and she will schedule the outpatient follow ups -patient should follow up with primary care Dr. Lim on [address] [place] [address] patient should follow up neurology clinic on [address] [place] [address]. Patient to call for appointment as instructed by Dr. Melara of neurology patient is advised to abstain from driving sinus arrhythmia on telemetry -normal echocardiogram -no evidence of atrial fibrillation Total Time Total Time Spent Total Time Spent (In Minutes): 40 minutes Total Time Includes: Examination of the Patient, Discharge Planning, Medication Reconciliation and Communication With Other Providers Discharge Plan Discharge Items Patient Disposition: Home - Self-Care Reason For Visit: SEIZURE LIKE ACTIVITY VS SYNCOPE Discharge Diagnosis: Seizure-like activity Syncope sinus arrhythmia on telemetry Condition on Discharge: Good Activity: Per Instructions section Non-emergency contact: Primary Care Provider and Neurologist Call non-emergency contact if: you have any medication questions Follow-up/Referrals: Abbi Lim DO [Primary Care Provider] - Diet: Regular Addtl Attending Provider Instructions: patient was given Keppra 500 mg IV BID while in the hospital as per Dr. Melara of neurology, patient can be discharged with prescription of oral Keppra 500 mg twice a day sent electronically to [facility] on [address] [place] [address] patient should follow up with primary care Dr. Lim on [address] [place] [address] patient should follow up neurology clinic on [address] [place] [address]. Patient to call for appointment as instructed by Dr. 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 Melara Pending Studies at Discharge: Yes Studies:: 09/01/2019 lead levels and peripheral smear pending Stand-Alone Forms: [employer], Smoking Cessation Medications and DC Order Prescriptions: New levetiracetam [Keppra] 500 mg Tablet 500 mg PO BID 30 Days Qty: 60 RF: 1 Continued famotidine [Pepcid AC] 10 mg Tablet 10 mg PO DAILY PRN (Reason: Acid Indigestion) RF: 0 omeprazole magnesium [Prilosec OTC] 20 mg Tablet,Delayed Release (Dr/Ec) 20 mg PO DAILY PRN (Reason: Acid Reflux) RF: 0 Discharge Orders: Discharge Order (Routine); Ordered 09/02/19 Ordered By: Won Bryant Admission Data Admit Date/Time: 09/01/19 13:42 Attending Provider: Won Bryant Admit Provider: Javon Hardwick Primary Care Provider: Abbi Lim Other Providers: Manuel Melara ; Javon Hardwick Other Interventions: Discharge Summary Assessment (RN) Last Done: 09/02/19 12:58
[2019-09-02] MEDS ORDERED: levETIRAcetam 500 MG TAB PO SCH (21:00)
--- NOTE | 2019-09-04 09:27 | Consultation Report ---
DATE OF CONSULTATION: 09/02/2019 CHIEF COMPLAINT: Seizure. HISTORY OF PRESENT ILLNESS: This is a 28-year-old woman with no pertinent past medical history, admitted yesterday for new onset seizure. She endorses 4 events; the first 2 events occurred on Wednesday of this week, which she described as feeling dizzy prior to a loss of awareness with eye fluttering and postictal confusion described as dysarthria and mild confusion with some amnesia. She had 2 similar episodes once again yesterday, although she had no dizziness. She did not bite her tongue and she did not have incontinence. She has no history of prior spells. No history of syncope. She denies any family history of epilepsy. She has no history of febrile seizures or history of encephalitis or meningitis. No history of TBI. No recent or new medication changes. She denies any recent stressors. She drinks alcohol socially and denies smoking. 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 PAST MEDICAL HISTORY: None. PAST SURGICAL HISTORY: No recent surgeries. FAMILY HISTORY: She denies any known family history of epilepsy. SOCIAL HISTORY: Nonsmoker, drinks alcohol occasionally. 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 REVIEW OF SYSTEMS: A 15-point review of system was conducted and is negative except for dizziness and eye fluttering. PHYSICAL EXAMINATION: VITAL SIGNS: Blood pressure 120/87 mmHg, pulse was 67, respirations was 18, temperature was 36.6. O2 sat was 97% on room air. CONSTITUTIONALLY: She appears normally developed, in no acute distress, appears stated age, well-developed face. HEENT: Normocephalic, atraumatic. Her eyes were midline with normal conjunctivae. NECK: Supple. RESPIRATORY: Effort was normal. HEART: Showed normal pulses. ABDOMEN: Nondistended. SKIN: There was no rashes or lesions noted. PSYCHIATRIC: She appeared to have a normal mood and normal affect. NEUROLOGIC: Orientation she was awake, alert, oriented to person, place and time. Mental status attention was normal. Her knowledge was appropriate. She was following simple and complex commands. There was no evidence of an aphasia. Speech was fluent. No dysarthria. No visual defect on confrontation. On cranial nerve testing extraocular movements were intact. Facial sensation was intact. There was no facial asymmetry. Her hearing was grossly intact. Her palate was symmetric. Uvula was midline. Her shoulder shrug was normal. Her tongue was midline with no abrasions. She was sitting in bed comfortably upright. Gait examination was deferred. Coordination, there was no tremor or myoclonic jerks. No ataxia with [id number] testing. Sensation was intact to light touch. Her muscle tone was normal. Muscle exam revealed full strength in the upper and lower extremities 5/5. Reflexes, negative Lisa sign and her toes were downgoing bilaterally. DIAGNOSTIC TESTING: Included a normal WBC. WBC was 9.37, hemoglobin was 12.1, platelet count was 347. INR was 1.1. Chemistry panel showed a sodium of 143, potassium of 4.1, chloride was 112, BUN was 10, creatinine 0.73. Phosphorus is 2.7. Total creatine kinase was 63. Her urinalysis showed trace ketones, otherwise it was negative for nitrites or leukocyte esterase. Her urine drug screen was negative. Lead testing was pending. IMAGING: Her brain MRI was unremarkable. This was performed with and without contrast. Routine EEG was normal awake and drowsy EEG. CTA head and neck was unremarkable. ASSESSMENT AND PLAN: A 28-year-old woman with no pertinent past medical history admitted for new onset seizure. Differential diagnoses certainly includes complex partial seizure versus nonepileptic behavioral event. Workup to date has been negative including MRI brain and EEG. Neurological exam is nonfocal. Recommend and agree with continuing Keppra 500 mg twice daily for seizure prophylaxis. I did discuss natural history of epilepsy and management options at length with patient and sister. I did discuss the driving restrictions in [place] including that she is not allowed to drive for 6 months. She can follow up in Neurology Clinic with myself or Vanna Alonso in 8 weeks. I did ask that she contact us immediately should she have any further spells and I did encourage her to obtain video of any further spells do occur if possible. Plan was discussed with Dr. Won Bryant prior to this dictation.
--- NOTE | 2019-09-20 12:19 | Emergency Department Note ---
ED Visit Note I have personally spent greater than 30 minutes of critical care time in the direct management of this patient. This includes bedside care, interpretation of diagnostic studies, and testing, discussion with consultants, patient, and family members, and other required patient management activities. This 30 minutes is in excess of all separately billable procedures. .
== END 2019-09-02 13:27 | disposition home or self-care (01) ==
LOC: 2S 10:52 → ED 10:52 → SUATTDRO 13:42 → 2S 14:51

== ENCOUNTER 2021-11-21 07:28 | Inpatient (IN) ==
[2021-11-21] MEDS ORDERED: OXYTOCIN 30 UNITS/500 ML BAG IV PRN ×3 (07:36→18:49)
[2021-11-21] MEDS ORDERED: LIDOCAINE 1% LOCAL 20 ML VIAL INFIL PRN (07:36)
[2021-11-21] MEDS ORDERED: SODIUM CHLORIDE 0.9% INJ 10 ML VIAL ONE (07:54)
[2021-11-21] MEDS ORDERED: fentaNYL citrate 100 MCG/2 ML VIAL ONE (07:54)
[2021-11-21] MEDS ORDERED: ePHEDrine sulfate 50 MG/ML AMP ONE (07:54)
[2021-11-21] MEDS ORDERED: fentaNYL 2MCG/ML ROPIVACAINE 1.25MG/ML 100 ML BAG EPI ONE (07:54)
[2021-11-21] MEDS ORDERED: LIDOCAINE 2%/EPINEPHRINE 1:200,000 20 ML SDV ONE (07:54)
[2021-11-21] MEDS ORDERED: BUPIVACAINE 0.25% 30 ML VIAL ONE (07:54)
[2021-11-21] MEDS: LACTATED RINGER'S 1,000 ML IV PRN ×3 (07:55→15:07)
[2021-11-21 08:26] LABS: Hematocrit (blood only) 32.8 % (34.1-44.9); Hemoglobin 11.3 g/dl (12.0-16.0); Mean Corpuscular Hemoglobin 30.3 pg (25.0-34.0); Mean Corpuscular Hgb Conc 34.5 g/dL (32.0-36.0); Mean Corpuscular Volume 87.9 fL (80.0-100.0); Mean Platelet Volume 10.7 fL (9.4-12.3); Platelet Count 184 K/uL (130-400); RDW Coefficient of Variation 14.8 % (11.5-14.5); RDW Standard Deviation 47.9 fL (36.4-46.3); Red Blood Count 3.73 M/uL (3.93-5.22); White Blood Count 19.41 K/ul (4.8-10.8)
--- NOTE | 2021-11-21 08:27 | History & Physical Report ---
Date of Service November 21, 2021 Assessment & Plan (1) : Plan: Anticipate normal delivery Admission and Anticipated Discharge Date Admission Date: November 21, 2021 History of Present Illness Chief Complaint: onset of labor Primary Care Provider: Kurt Adams MD 31 F P0000 at 38 weeks presents to L&D in active labor. GBS is negative. Allergies Allergy/AdvReac Type Severity Reaction Status Date / Time nickel Allergy Intermediate Skin Verified 09/01/19 12:34 Irritations Home Medications Medication Instructions Recorded Confirmed Type famotidine 10 mg tablet (Pepcid AC) 10 mg PO DAILY PRN Acid Indigestion 08/30/19 09/01/19 History omeprazole magnesium 20 mg 20 mg PO DAILY PRN Acid Reflux 08/30/19 09/01/19 History tablet,delayed release (Prilosec OTC) levetiracetam 500 mg tablet 500 mg PO BID 30 days #60 tabs 09/02/19 Rx (Keppra) Patient History Medical History Acid reflux Asthma HSV (herpes simplex virus) infection Seizure-like activity Surgical History History of wisdom tooth extraction No pertinent past surgical history Social History Smoking Status: Never smoker Hx Alcohol Use: Yes (Occasional) Alcohol type: wine Hx Substance Use: No Preferred Language: Dutch Communication Ability: Effective Sharebroker Required: No Beliefs That Will Affect Care: None marital status: Single Current Living Situation: Spouse 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 [employer] Other Information That Helps Us Care for You: No Feels Safe at Home: Yes Assistive Devices: None OB History primigravida 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 History neg Review of Systems All systems reviewed & are unremarkable except as noted in HPI & below Physical Exam Constitutional: WD/WN, vitals as above Eyes: PERRL, conjunctivae normal, anicteric sclerae Respiratory: normal respiratory effort, lungs clear to auscultation Cardiovascular: RRR, no murmur, no edema Musculoskeletal: Extremities: extremities normal to inspection Skin: no rashes, warm and dry Neurologic: patellar DTR's 2+ bilat, sensation intact Psychiatric: A+Ox3, euthymic affect Genitourinary: Manual OB Exam: + cervical dilation 6 cm and 7 cm, + cervical effacement 80% and + station -1 OB Exam Monitor Tracing: + external FHT monitor used, + external uterine monitor used and + category I Results & Data ([facility]) Vital Signs (Past 12 Hours) Vital Signs Temp Pulse Resp BP 11/21/21 07:32 36.9 C 77 22 128/80 Code Status & VTE Plan VTE Prophylaxis Plan VTE Prophylaxis will be ordered: No
[2021-11-21] MEDS ORDERED: NALOXONE HCL 1 MG in SODIUM CHLORIDE 0.9% 1000ML 1,000 ML IV PRN (08:28)
[2021-11-21] MEDS ORDERED: ePHEDrine sulfate 50 MG/ML AMP IV PRN (08:28)
[2021-11-21] MEDS ORDERED: NALOXONE HCL 0.4 MG/1 ML VIAL/CARP IV PRN (08:28)
[2021-11-21] MEDS ORDERED: ONDANSETRON INJ 2 MG/ML 2 ML VIAL IV PRN (08:28)
[2021-11-21] MEDS ORDERED: fentaNYL 2MCG/ML ROPIVACAINE 1.25MG/ML 100 ML BAG EPI PRN (08:28)
[2021-11-21] MEDS ORDERED: NALBUPHINE HCL INJ 10 MG/ML AMP IV PRN (08:28)
[2021-11-21] MEDS ORDERED: diphenhydrAMINE 50 MG/ML VIAL IV PRN (08:28)
--- NOTE | 2021-11-21 08:30 | Anesthesiology Consultation ---
Date of Service November 21, 2021 Assessment & Plan Chart Review Chart Review: Patient NOT seen in Pre Admission Testing and Acceptable Risk for Labor Epidural Consults Requested none ASA ASA2 Proposed Anesthesia Anesthesia Type: Labor Epidural and CSE Risk / Benefits Reviewed With: PT / POA / Parent / Guardian, Accepts Plan and Informed Consent Obtained History Height/Weight Height: 5 ft 2 in Weight: 80.739 kg Allergies Allergy/AdvReac Type Severity Reaction Status Date / Time nickel Allergy Intermediate Skin Verified 09/01/19 12:34 Irritations Medications Home Medications Medication Instructions Recorded Confirmed Last Taken famotidine 10 mg tablet (Pepcid AC) 10 mg PO DAILY PRN Acid Indigestion 08/30/19 09/01/19 Unknown omeprazole magnesium 20 mg 20 mg PO DAILY PRN Acid Reflux 08/30/19 09/01/19 Unknown tablet,delayed release (Prilosec OTC) levetiracetam 500 mg tablet 500 mg PO BID 30 days #60 tabs 09/02/19 Unknown (Keppra) Active Medications Generic Name Dose Route Start Last Admin Trade Name Freq PRN Reason Stop Dose Admin Lactated Ringer's 1,000 mls @ 125 mls/hr 11/21/21 07:36 11/21/21 07:55 Lr IV 11/23/21 07:35 999 mls/hr .Q8H PRN Administration L&D Protocol Protocol NPO Date Last Intake of Fluids: 11/21/21 Time Last Intake of Fluids: 06:00 Date Last Intake of Solids: 11/20/21 Time Last Intake of Solids: 19:00 Past Medical History Medical History Acid reflux Asthma HSV (herpes simplex virus) infection Seizure-like activity Exercise / Class Metabolic Activity II 4-5 Yardwork/Stairs/Walk up hill Past Surgical History Surgical History History of wisdom tooth extraction No pertinent past surgical history Past Anesthesia History No Hx of Anesthesia Complications and No Family Hx of Anesthesia Complications History of PONV No Hx of PONV and No Hx of Motion Sickness Social History Smoking Status: Never smoker Hx Alcohol Use: No Alcohol type: wine alcohol intake frequency: other Hx Substance Use: No substance use type: does not use Review of Systems no chest pain or sob Physical Exam Vital Signs Last Vital Signs Temp 36.9 C 11/21/21 07:32 Pulse 88 11/21/21 08:27 Resp 22 11/21/21 07:32 BP 128/80 11/21/21 07:32 Pulse Ox 100 11/21/21 08:27 ENMT Mouth: no TMJ abnormality Thyromental Distance: > or= 3.5 Finger Breadths Mallampati Class: II Neck normal visual inspection Respiratory normal respiratory effort Auscultation: lungs clear to auscultation bilaterally Cardiovascular Rate/Rhythm: regular rate and regular rhythm Musculoskeletal Spine: normal cervical ROM Neurologic moves all extremities Psychiatric Orientation: alert and oriented x 3 Testing Laboratory Results 11/21/21 08:14
--- NOTE | 2021-11-21 12:59 | Labor Progress Brief Note ---
Date of Service November 21, 2021 Assessment & Plan Admission and Anticipated Discharge Date Admission Date: November 21, 2021 Physical Exam Genitourinary: Manual OB Exam: + cervical dilation 9 cm, + cervical effacement 100%, + station -1 and + amniotic fluid clear OB Exam Monitor Tracing: + external FHT monitor used, + external uterine monitor used, + category I and + normal FHT variability Results & Data ([facility]) Vital Signs (Past 12 Hours) Vital Signs Temp Pulse Resp BP Pulse Ox 11/21/21 12:52 97 11/21/21 12:52 68 11/21/21 12:47 98 11/21/21 12:47 78 11/21/21 12:45 74 11/21/21 12:45 105/64 11/21/21 12:42 98 11/21/21 12:42 71 11/21/21 12:37 97 11/21/21 12:37 67 11/21/21 12:32 97 11/21/21 12:32 69 11/21/21 12:30 70 11/21/21 12:30 102/61 11/21/21 12:27 97 11/21/21 12:27 70 11/21/21 12:22 98 11/21/21 12:22 67 11/21/21 12:17 98 11/21/21 12:17 66 11/21/21 12:15 66 11/21/21 12:15 103/59 L 11/21/21 12:12 98 11/21/21 12:12 66 11/21/21 12:07 98 11/21/21 12:07 68 11/21/21 12:02 98 11/21/21 12:02 67 11/21/21 12:01 88 11/21/21 12:01 36.7 C 20 110/65 11/21/21 11:57 97 11/21/21 11:57 66 11/21/21 11:52 97 11/21/21 11:52 60 11/21/21 11:47 97 11/21/21 11:47 65 11/21/21 11:46 63 11/21/21 11:46 103/61 11/21/21 11:42 100 11/21/21 11:42 68 11/21/21 11:37 99 11/21/21 11:37 71 11/21/21 11:32 99 11/21/21 11:32 66 11/21/21 11:32 91 11/21/21 11:32 83 11/21/21 11:30 67 11/21/21 11:30 112/73 11/21/21 11:27 98 11/21/21 11:27 56 L 11/21/21 11:22 99 11/21/21 11:22 70 11/21/21 11:17 99 11/21/21 11:17 61 11/21/21 11:16 68 11/21/21 11:16 110/73 11/21/21 11:12 98 11/21/21 11:12 71 11/21/21 11:07 97 11/21/21 11:07 73 11/21/21 11:02 99 11/21/21 11:02 69 11/21/21 11:00 71 11/21/21 11:00 36.8 C 20 105/70 11/21/21 10:57 99 11/21/21 10:57 68 11/21/21 10:52 100 11/21/21 10:52 69 11/21/21 10:47 100 11/21/21 10:47 68 11/21/21 10:45 77 11/21/21 10:45 112/74 11/21/21 10:42 100 11/21/21 10:42 69 11/21/21 10:37 100 11/21/21 10:37 74 11/21/21 10:32 100 11/21/21 10:32 77 11/21/21 10:31 71 11/21/21 10:31 116/72 11/21/21 10:27 98 11/21/21 10:27 63 11/21/21 10:22 99 11/21/21 10:22 62 11/21/21 10:17 99 11/21/21 10:17 62 11/21/21 10:16 62 11/21/21 10:16 113/69 11/21/21 10:12 99 11/21/21 10:12 64 11/21/21 10:07 99 11/21/21 10:07 62 11/21/21 10:02 99 11/21/21 10:02 63 11/21/21 10:01 64 11/21/21 10:01 110/72 09/30/22 09:57 99 11/21/21 09:57 68 11/21/21 09:52 100 11/21/21 09:52 79 11/21/21 09:47 99 11/21/21 09:47 67 11/21/21 09:46 71 11/21/21 09:46 118/68 11/21/21 09:42 99 11/21/21 09:42 76 11/21/21 09:37 99 11/21/21 09:37 77 11/21/21 09:32 100 11/21/21 09:32 89 11/21/21 09:29 72 11/21/21 09:29 36.5 C 20 112/70 11/21/21 09:27 100 11/21/21 09:27 84 11/21/21 09:27 103/68 11/21/21 09:25 73 11/21/21 09:25 107/67 11/21/21 09:23 72 11/21/21 09:23 102/63 11/21/21 09:22 99 11/21/21 09:22 76 11/21/21 09:22 75 11/21/21 09:22 102/64 11/21/21 09:19 76 11/21/21 09:19 99/61 L 11/21/21 09:17 98 11/21/21 09:17 73 11/21/21 09:17 108/66 11/21/21 09:15 74 11/21/21 09:15 109/61 11/21/21 09:13 75 11/21/21 09:13 105/59 L 11/21/21 09:12 99 11/21/21 09:12 75 11/21/21 09:12 85 11/21/21 09:12 104/55 L 11/21/21 09:09 73 11/21/21 09:09 109/65 11/21/21 09:07 99 11/21/21 09:07 93 H 11/21/21 09:07 113/69 11/21/21 09:05 77 11/21/21 09:05 105/61 11/21/21 09:04 81 11/21/21 09:04 107/65 11/21/21 09:02 99 11/21/21 09:02 92 H 11/21/21 09:02 81 11/21/21 09:02 106/60 11/21/21 08:59 85 11/21/21 08:59 111/62 11/21/21 08:57 98 11/21/21 08:57 95 H 11/21/21 08:57 103/59 L 11/21/21 08:56 93 H 11/21/21 08:56 108/67 11/21/21 08:53 91 H 11/21/21 08:53 101/60 11/21/21 08:52 99 11/21/21 08:52 90 11/21/21 08:51 82 11/21/21 08:51 106/60 11/21/21 08:50 94 H 11/21/21 08:50 109/64 11/21/21 08:49 92 11/21/21 08:49 98 H 11/21/21 08:47 100 11/21/21 08:47 80 11/21/21 08:47 111/64 11/21/21 08:45 80 11/21/21 08:45 103/59 L 11/21/21 08:43 78 11/21/21 08:43 113/69 11/21/21 08:42 99 11/21/21 08:42 76 11/21/21 08:42 75 11/21/21 08:42 111/64 11/21/21 08:39 75 11/21/21 08:39 114/83 11/21/21 08:39 93 11/21/21 08:39 81 11/21/21 08:37 98 11/21/21 08:37 82 11/21/21 08:32 100 11/21/21 08:32 90 11/21/21 08:29 92 11/21/21 08:29 77 11/21/21 08:27 100 11/21/21 08:27 88 11/21/21 07:32 36.9 C 77 22 128/80
--- NOTE | 2021-11-21 18:38 | Delivery Summary ---
Vaginal Delivery Summary Date of Service November 21, 2021 Vaginal Delivery Summary Delivery Note live male LEONEL over intact perineum with delayed cord clamping and Apgars and weight pending. Cord blood obtained followed by spontaneous delivery of intact placenta. No tears. EBL 150 ml. Final sponge and instrument count are correct. Mom and baby stable.
--- NOTE | 2021-11-21 18:45 | Anesthesia Procedure Note ---
Date of Service November 21, 2021 Anesthesia Post Epidural Note Vital Signs Vital Signs: Temp Pulse Resp BP Pulse Ox 36.7 C 86 22 118/55 L 99 11/21/21 17:03 11/21/21 18:43 11/21/21 17:03 11/21/21 18:30 11/21/21 18:43 Pain Intensity Abdomen: Pain Intensity: 2 Notes Mental Status: alert / awake / arousable and participated in evaluation Nausea / Vomiting: adequately controlled Pain: adequately controlled Airway Patency, RR, SpO2: stable & adequate BP & HR: stable & adequate Hydration State: stable & adequate Neuraxial Anesthesia: was administered and sensory block is resolving Anesthetic Complications: no major complications apparent and Pt Satisfied with anesthetic care Epidural: Removed without complications and With tip intact
[2021-11-21] MEDS ORDERED: ACETAMINOPHEN 325 MG TAB PO PRN (18:49)
[2021-11-21] MEDS ORDERED: BENZOCAINE 20% AER SPR 82.5 GM CAN EXT PRN (18:49)
[2021-11-21] MEDS ORDERED: DIPHTHERIA/TETANUS/PERTUSSIS 0.5 ML SYR/VIAL IM ONE (18:49)
[2021-11-21] MEDS ORDERED: FAMOTIDINE 10 MG TABLET PO PRN (18:49)
[2021-11-21] MEDS ORDERED: bisacodyL 10 MG SUPP PR PRN (18:49)
[2021-11-21] MEDS ORDERED: HYDROCORTISONE ACETATE 25 MG SUPP PR PRN (18:49)
[2021-11-21] MEDS ORDERED: PANTOprazole 40 MG TAB PO PRN (18:55)
[2021-11-21] MEDS: valACYclovir HCL 500 MG TABLET PO SCH (21:07)
[2021-11-21] MEDS: DOCUSATE SODIUM 100 MG CAP PO SCH (21:07)
[2021-11-21] MEDS: IBUPROFEN 600 MG TAB PO PRN (23:54)
[2021-11-22 06:45] LABS: Hematocrit (blood only) 26.9 % (34.1-44.9); Hemoglobin 9.2 g/dl (12.0-16.0); Mean Corpuscular Hemoglobin 30.7 pg (25.0-34.0); Mean Corpuscular Hgb Conc 34.2 g/dL (32.0-36.0); Mean Corpuscular Volume 89.7 fL (80.0-100.0); Mean Platelet Volume 11.1 fL (9.4-12.3); Platelet Count 167 K/uL (130-400); RDW Coefficient of Variation 15.2 % (11.5-14.5); RDW Standard Deviation 50.1 fL (36.4-46.3); White Blood Count 21.72 K/ul (4.8-10.8)
[2021-11-22] MEDS: valACYclovir HCL 500 MG TABLET PO SCH ×2 (08:35→21:02)
[2021-11-22] MEDS: PRENATAL VITAMIN 1 TAB PO SCH (08:35)
[2021-11-22] MEDS: DOCUSATE SODIUM 100 MG CAP PO SCH ×2 (08:35→21:02)
[2021-11-22] MEDS: IBUPROFEN 600 MG TAB PO PRN ×2 (08:35→20:24)
[2021-11-22] MEDS: FERROUS SULFATE 325 MG TAB PO SCH (08:35)
[2021-11-22] MEDS: ASCORBIC ACID 500 MG TAB PO SCH (08:35)
[2021-11-22] MEDS ORDERED: NON-FORMULARY MEDICATION (Prenat.Vits,Cal,Min-Iron-Folic Tablet) PO SCH (09:00)
--- NOTE | 2021-11-22 11:51 | Labor Progress Brief Note ---
Date of Service November 22, 2021 Assessment & Plan Admission and Anticipated Discharge Date Admission Date: November 21, 2021 Physical Exam Genitourinary: Manual OB Exam: + cervical dilation 10 cm, + cervical effacement 100%, + station 0 and + amniotic fluid clear OB Exam Monitor Tracing: + external FHT monitor used, + external uterine monitor used, + category I and + normal FHT variability AROM with Amni-hook clear fluid Results & Data ([facility]) Vital Signs (Past 12 Hours) Vital Signs Temp Pulse Resp BP Pulse Ox O2 Del Method 11/22/21 08:50 36.5 C 73 18 114/80 100 Room Air 11/22/21 04:15 36.6 C 71 18 102/65
[2021-11-22] MEDS ORDERED: bisacodyL 5 MG TABEC PO SCH (20:00)
[2021-11-23 06:42] LABS: Hematocrit (blood only) 25.7 % (34.1-44.9); Hemoglobin 8.5 g/dl (12.0-16.0)
[2021-11-23] MEDS: FERROUS SULFATE 325 MG TAB PO SCH (08:11)
[2021-11-23] MEDS: PRENATAL VITAMIN 1 TAB PO SCH (08:11)
[2021-11-23] MEDS: DOCUSATE SODIUM 100 MG CAP PO SCH (08:11)
[2021-11-23] MEDS: valACYclovir HCL 500 MG TABLET PO SCH (08:11)
[2021-11-23] MEDS: ASCORBIC ACID 500 MG TAB PO SCH (08:12)
--- NOTE | 2021-11-23 08:35 | Obstetrical Progress Note ---
Date of Service November 23, 2021 Subjective Ambulation: ambulating normally Voiding: no voiding problems Passing Gas:: Yes Diet Tolerance:: regular diet Lochia:: Small Feeding Type:: breast feeding Physical Exam Constitutional WD/WN, vitals as above well developed Musculoskeletal Extremities: extremities normal to inspection Skin no rashes, warm and dry Neurologic patellar DTR's 2+ bilat, sensation intact Psychiatric A+Ox3, euthymic affect Results & Data ([facility]) Vital Signs (Past 12 Hours) Vital Signs Temp Pulse Resp BP Pulse Ox O2 Del Method 11/23/21 00:00 36.3 C L 67 16 113/74 98 Room Air Laboratory Results Laboratory Results - last 72 hr 11/21/21 11/21/21 11/22/21 07:35 08:14 06:22 WBC 19.41 H 21.72 H RBC 3.73 L 3.00 L Hgb 11.3 L 9.2 L Hct 32.8 L 26.9 L MCV 87.9 89.7 MCH 30.3 30.7 MCHC 34.5 34.2 RDW Std Deviation 47.9 H 50.1 H RDW Coeff of Aparna 14.8 H 15.2 H Plt Count 184 167 MPV 10.7 11.1 SARS-CoV-2, RNA, NAAT NEGATIVE 11/23/21 06:28 WBC RBC Hgb 8.5 L Hct 25.7 L MCV MCH MCHC RDW Std Deviation RDW Coeff of Aparna Plt Count MPV SARS-CoV-2, RNA, NAAT
[2021-11-23] MEDS: IBUPROFEN 600 MG TAB PO PRN (11:46)
== END 2021-11-23 13:14 | disposition home or self-care (01) | DRG 807 ==
LOC: OPB 07:28 → 4S1 07:30 → 4E2 21:38

== ENCOUNTER 2024-06-08 15:58 | Inpatient (IN) ==
[2024-06-08] MEDS ORDERED: LIDOCAINE 1% LOCAL 20 ML VIAL INFIL PRN (16:24)
[2024-06-08] MEDS: LACTATED RINGER'S 1,000 ML IV PRN (16:25)
--- NOTE | 2024-06-08 16:29 | History & Physical Report ---
Date of Service June 08, 2024 Assessment & Plan (1) : Plan: Admit in active labor anticipate normal delivery History of Present Illness Primary Care Provider: Vipul Adams MD 33 F P1001 at 40 weeks admitted din active labor. GBS is negative. Allergies Allergy/AdvReac Type Severity Reaction Status Date / Time nickel Allergy Intermediate Skin Verified 09/01/19 12:34 Irritations Home Medications Medication Instructions Recorded Confirmed Type omeprazole magnesium 20 mg 20 mg PO DAILY PRN Acid Reflux 08/30/19 11/21/21 History tablet,delayed release (Prilosec OTC) ascorbic acid (vitamin C) 500 mg 500 mg PO DAILY 11/21/21 06/08/24 History tablet (Vitamin C) ferrous sulfate 325 mg (65 mg 325 mg PO DAILY 11/21/21 06/08/24 History iron) tablet (iron) prenat.vits,eloisa,yop-leay-cceyl 1 tab PO DAILY 11/21/21 11/21/21 History valacyclovir 500 mg tablet 500 mg PO BID 11/21/21 11/21/21 History Patient History Medical History History of psychogenic nonepileptic seizure Asthma HSV (herpes simplex virus) infection Acid reflux Surgical History History of wisdom tooth extraction Family History Father Hypertension Mother PVC's (premature ventricular contractions) Mother Thyroid nodule Grandmother (Paternal) TIA (transient ischemic attack) Social History Smoking Status: Never smoker Hx Alcohol Use: No Hx Substance Use: No Preferred Language: Turkish Communication Ability: 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 Beliefs That Will Affect Care: None marital status: Single Current Living Situation: Spouse Current Living Situation Comment: 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 with 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 [employer] Feels Safe at Home: Yes Diet: regular Gender Identity: Female Assistive Devices: None OB History 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 History neg Review of Systems All systems reviewed & are unremarkable except as noted in HPI & below Physical Exam Constitutional: WD/WN, vitals as above Eyes: PERRL, conjunctivae normal, anicteric sclerae Respiratory: normal respiratory effort, lungs clear to auscultation Cardiovascular: Rate/Rhythm: regular rate and regular rhythm Gastrointestinal (Abdomen): Inspection/Auscultation: abdomen normal to inspection Musculoskeletal: Extremities: extremities normal to inspection Skin: no rashes, warm and dry Neurologic: patellar DTR's 2+ bilat, sensation intact Psychiatric: A+Ox3, euthymic affect Genitourinary: no vaginal lesions, no adnexal mass Manual OB Exam: + cervical dilation 7 cm, + cervical effacement 100% and + station -2 OB Exam Monitor Tracing: + external FHT monitor used, + external uterine monitor used, + category I and + normal FHT variability Results & Data Vital Signs (Past 12 Hours) Vital Signs Temp Pulse Resp BP 06/08/24 16:24 75 06/08/24 16:24 132/93 06/08/24 16:09 70 124/85 06/08/24 16:07 20 06/08/24 16:07 36.6 C 20 Code Status & VTE Plan VTE Prophylaxis Plan VTE Prophylaxis will be ordered: No Monitoring External Monitor Cat 1 (1) Weeks of gestation: 40 weeks Qualified Code(s): Z3A.40 - 40 weeks gestation of
[2024-06-08 16:57] LABS: Hematocrit (blood only) 32.6 % (37.0-47.0); Hemoglobin 11.1 g/dl (12.0-16.0); Mean Corpuscular Hemoglobin 28.5 pg (25.0-34.0); Mean Corpuscular Volume 83.6 fL (80.0-100.0); Mean Platelet Volume 10.7 fL (9.4-12.4); Platelet Count 262 K/uL (130-400); RDW Coefficient of Variation 14.5 % (11.5-14.5); RDW Standard Deviation 43.8 fL (36.4-46.3); White Blood Count 13.15 K/ul (4.8-10.8)
--- NOTE | 2024-06-08 17:04 | Labor Progress Brief Note ---
Date of Service June 08, 2024 Assessment & Plan Admission and Anticipated Discharge Date Admission Date: June 08, 2024 Physical Exam Genitourinary: Manual OB Exam: + cervical dilation 7 cm, + cervical effacement 100%, + station (AROM with Amni-hook clear fluid) -2 and + amniotic fluid clear OB Exam Monitor Tracing: + external FHT monitor used, + external uterine monitor used, + category I and + normal FHT variability Results & Data Vital Signs (Past 12 Hours) Vital Signs Temp Pulse Resp BP 06/08/24 16:54 78 06/08/24 16:54 119/79 06/08/24 16:44 75 06/08/24 16:44 143/91 H 06/08/24 16:34 87 06/08/24 16:34 133/100 06/08/24 16:24 75 06/08/24 16:24 132/93 06/08/24 16:10 36.6 C 75 20 132/93 06/08/24 16:09 70 124/85 06/08/24 16:07 20 06/08/24 16:07 36.6 C 20
[2024-06-08] MEDS: OXYTOCIN 30 UNITS/NSS 30 UNITS/500 ML BAG IV PRN (17:58)
--- NOTE | 2024-06-08 18:10 | Delivery Summary ---
Vaginal Delivery Summary Date of Service June 08, 2024 Vaginal Delivery Summary live male LEONEL with delayed cord clamping and Apgars 8/9 weight pending. Cord blood obtained followed by spontaneous delivery of intact placenta. No tears. QBL 76 ml. Final sponge and instrument count are correct. Mom and baby stable.
[2024-06-08] MEDS ORDERED: HYDROCORTISONE ACETATE 25 MG SUPP PR PRN (18:17)
[2024-06-08] MEDS ORDERED: ACETAMINOPHEN 325 MG TAB PO PRN (18:17)
[2024-06-08] MEDS ORDERED: OXYTOCIN 30 UNITS/NSS 30 UNITS/500 ML BAG IV PRN (18:17)
[2024-06-08] MEDS ORDERED: bisacodyL 10 MG SUPP PR PRN (18:17)
[2024-06-08] MEDS ORDERED: PANTOprazole 40 MG TAB PO PRN (18:21)
[2024-06-08] MEDS: DIPHTHER/TETAN/PERTUS Vaccine (Tdap, Adol/Adult) 0.5mL IM ONE (18:25)
[2024-06-08] MEDS: BENZOCAINE 20% SPRY 85 APPLN/85 GM CAN EXT PRN (19:58)
[2024-06-08] MEDS: DOCUSATE SODIUM 100 MG CAP PO SCH (20:02)
[2024-06-08] MEDS: IBUPROFEN 600 MG TAB PO PRN (23:10)
--- OUTSIDE RECORDS SUMMARY | 2024-06-09 01:39 | External Medical Summary | Summary of Care ---
Author Name Unknown Organization [facility] Address [address] [place] [address] Phone [phone] Care Team Providers Care Emblem Fuser Tender Name Role Phone Vipul Adams MD Primary Care Provid er Reason for Visit * Reason Comments Return Visit Encounter Details Date Type Department Care Team (Late st Contact Info) Description 06/07/2024 3:30 PM EDT Office Visit Gynecology/Obstetric s [facility] [address] [facility] [address] Nakia Franz [facility] [address] [place] [address] Encounter for supervision of other normal , unspecified trimester*; 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 1 Inhaler 03/20/19 20 Active Additional Information Patient not taking.Reported on 05/16/2024 fluticasone (FLOVENT HFA) 110 MCG/ACT inhaler Inhale 2 Puffs by mouth 2 times a day. 1 Inhaler 11 03/20/19 Active Additional Information Patient not taking.Reported on 05/16/2024 28-0.8 MG Oral Tablet Take by mouth . Ac tive valACYclovir HCl 500 MG Oral Tablet (Valtrex) Take by mouth 1 Tablet in the morning AND 1 Tablet before bedtime. Until gone.. 60 Tablet 10/30/19 22 Active Additional Information Patient taking differently:500 mg OralDaily(AM), Until gone., Reported on 06/07/2024 Polyethylene Glycol 3350 17 GM Oral Packet (Miralax) Take 1 Packet by mouth in the morning. Active Iron 325 (65 Fe) MG Oral Tablet Take by mouth. Active Vitamin C 500 MG Oral Capsule Take by mouth. Ac tive valACYclovir HCl 500 MG Oral Tablet (Valtrex) Take 1 Tablet by mouth 2 times a day. 60 Tablet 1 04/27/19 Active Omeprazole 20 MG Oral Tablet Delayed Release Disintegrating Take by mouth. 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 She is eligable for booster dose. Assessment & Plan (04/11/2021 9:57 AM EST): During the visit today, COVID-19 vaccination was discussed and all questions were answered. The following information was shared with the patient. The [employer], Society for Maternal- Medicine, CDC and multiple medical associations strongly recommend the COVID-19 vaccine for women who are in any trimester, those attempting to become , women who have recently delivered, who are lactating as well as any other woman, regardless of age or PREVOCATIONAL/REHABILITATION COUNSELOR disorder. The only exceptions to receiving the vaccine are for those who have a contraindication or allergy to the vaccine or any component of the vaccine or with sincerely held buddhism convictions. The CDC and ACOG encourages a COVID-19 vaccine booster for women, given the risk of severe complications from COVID-19 in . Seizure-like activity 08/31/2019 Gastroesophageal reflux disease without esophagi tis 02/26/2017 Asthma, mild persistent 10/09/2014 Seborrheic dermatitis 11/10/2001 Overview (11/23/2016): ICD-10 update of inactive term Herpes dermatitis Overview (09/09/2011): positive by culture Assessment & Plan (07/01/2021 2:41 PM EDT): No prior genital lesions. Estimated Date of Delivery Comme nts Yes 06/08/2024 Based on last me nstrual period of 09/02/2023 documented as of this encounter (statuses as of 06/08/2024) Resolved Problems Problem Noted Date Diagnosed Date Resolved Date Antepartum anemia complicating 09/16/2021 01/07/2024 Overview (09/16/2021): Blood management referral at 31w Seizure disorder during preg checo in first trimester 04/11/2021 01/07/2024 Overview (04/11/2021): Patient reports she started having seizure activity in 08/2019. Prior to , she was experiencing 2-3 seizures/week. However since her 02/2021, she has been seizure free. I reviewed neurology records from [facility]. 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 She is not currently managed on medications. She receive cognitive behavioral therapy once a month and has an upcoming appointment with neuropsychiatry and repeat ambulatory EEG monitoring at the end of March. Assessment & Plan (07/01/2021 2:40 PM EDT): Patient presents today for anatomy scan. Patient reports episodes of nonepileptic seizures starting in 08/2019, occurring once a month until about 05/2020, after which time she had nexplanon removed and seizures increased in frequency q2-3x/week until started in 02/2021. No seizures since onset of . Patient reports she had been followed by neurology at [facility]. Has had EEGs which have not shown epileptic activity, last done in 05/2021, again without any evidence of epilepsy. Was previously on antiseizure medication when seizures first started for about 1 week though has not been on any medications since then. Has been following with Neuropsych and cognitive behavioral therapy, and continues to be stable and seizure-free since 02/2021. Discussed with patient today that patient can continue with routine obstetric care. Assessment & Plan (04/11/2021 10:02 AM EST): RECOMMENDATIONS: 1. Recommend patient be monitored and managed neurology throughout and period. 2. Recommend MSAFP at 15-18 weeks 3. Recommend Maternal Medicine ultrasound for anatomy at 19-20 weeks gestation. 4. Recommend echo be done at approximately 24 weeks for patients with current idiopathic epilepsy (currently on medications or seizure within past 3 years). 5. Maternal Medicine ultrasound for growth at 28-30 weeks for patients who have been actively seizing during or are taking antiepileptic medications. Maternal asthma complicating 04/11/2021 01/08/2022 Overview (04/11/2021): Patient reports her asthma is well controlled and hasn't needed a rescue inhaler in over 2 years Assessment & Plan (04/11/2021 9:37 AM EST): CONSIDERATIONS: Asthma symptoms may improve, worsen or remain unchanged in severity in . Asthma is generally managed the same in as in the non- patient, as asthma-control medications are considered safe in . If asthma is well-controlled with medications prior to , it is recommended to continue the same medication regimen during . A patient should seek medical care immediately if an asthma flare does not respond to therapy. Mild and well-controlled moderate asthma can be associated with excellent maternal and outcomes. Severe and poorly controlled asthma may be associated with increased morbidity and mortality. Asthma management includes monitoring of lung function with pulmonary function testing (when indicated), avoidance of triggers (such as tobacco smoke, mold, dust mite exposure, animal dander and cockroaches), and a step-care approach to pharmacologic therapy based on the severity of the patient's asthma. RECOMMENDATIONS: Inhaled corticosteroids are the mainstay of therapy for all patients except those with intermittent asthma. o If patients are routinely requiring rescue inhaler (such as albuterol, Ventolin, ProAir, Atrovent, or Proventil) use more than twice weekly, we recommend adding a low-dose inhaled corticosteroid. [Pulmicort (budesonide) is preferred to use in .] o If patients are routinely requiring rescue inhaler use daily, we recommend adding a combined low-dose inhaled corticosteroid/long-acting beta-agonist [such as Advair (fluticasone/salmeterol) or Symbicort (budesonide/formoterol)] or a medium dose inhaled corticosteroid. o Patient should discuss these treatment options with her primary OB provider or PCP. Typically, patients do not need stress dose steroids as long as they continue their usual dose perioperatively (or during labor) and do not have primary renal failure or other problems with the pituitary axis. Medications such as prostaglandin F2a (including Hemabate), ergonovine, and indomethacin (in patients who are aspirin allergic) should be used with caution. Patients with moderate or severe persistent asthma should have Maternal- Medicine ultrasound for anatomy at 19-20 weeks. surveillance with growth ultrasounds and non-stress tests should be considered starting at 32 weeks. Genetic screening 04/11/2021 10/06/2021 Overview (04/11/2021): Patient has opted to decline genetic screening/testing for aneuploidy at this time Assessment & Plan (04/11/2021 9:37 AM EST): · Cell-free DNA (cffDNA) screening is a genetic screening option that analyzes maternal blood for DNA that is placental in origin and targets the following conditions: Trisomy 21 (Down syndrome), trisomy 18, trisomy 13, and sex chromosome abnormalities such as monosomy X (Owen syndrome), and sex chromosome trisomies (triple X, Klinefelter syndrome, XYY). It may also evaluate for other genetic alterations such as microdeletions, depending on the specific test. It reveals the sex of the fetus but should generally not be performed solely for this indication. The screening test can be performed after 10 weeks gestation. · Results provided are NOT diagnostic, but provide a risk estimate. Types of results include low-risk/negative, high-risk/positive, and inconclusive. · Low-risk results convey a low risk for the conditions screened, while high- risk results will indicate which condition is high risk and the likelihood of the condition based on the results. · High-risk and inconclusive results would require follow up with a Maternal- Medicine genetic counselor. · Amniocentesis would be recommended in the setting of high-risk results. · Results are available 5-7 days after the test is completed. · Cost of cffDNA screening is dependent on health insurance plan. · Patient aware not all insurances cover this test. · The performing laboratory will bill the insurance directly. · Offer MSAFP only (not Quad Screen) at 16-22 weeks if screening for open neural tube defects is desired. · Amniocentesis for diagnosis of chromosomal abnormalities is also available. The risk of complications from the procedure and that risk is 1 in 500 (0.2%). Supervision of high-risk pre gnancy, unspecified trimester 04/11/2021 01/08/2022 Physical exam, routine 03/17/201810/[address] 12/13/2017 2 Acute cystitis 02/14/2010 01/06/2016 documented as of this encounter (statuses as of 06/08/2024) Immunizations Name Administration Dates Next Due HPV Vaccine, 4-Valent 02/20/2014,11/16/2013 MMR - Measles/Mumps/Rubella Vaccine 09/30/2011,0 11/06/2009 Meningococcal Conjugate Vacc ine (Menactra/Menveo) 08/15/2008 PPD 09/14/2012, 2,08/10/2011,10/18,10/01/2009 Pneumococcal Polysaccharide PPV23 (Pneumovax) 01/06/2016 Seasonal Influenza Vac., MDV , IM, 0.5 mL (Fluzone) 11/09/2013,12/21/2012,12/15/2007 Seasonal Influenza Virus Vac cine, Unspecified Formulation 11/07/2017 Seasonal Influenza, PF, 6 M & above, IM , (FluLaval or Fluzone) 01/18/2019 Seasonal Influenza, Quadriva lent, No Preserve, IM 12/11/2015 TDAP (age 10 and older)(Boostrix) 08/27/2021,10/2018 TDAP, Age 7 and older, IM (Adacel) 03/17/2024, documented as of this encounter Social History Tobacco Use Types Packs/Day Years Used Date Smoking Tobacco: Former Cigarettes Q uit: 09/15/2011 Smokeless Tobacco: Never Alcohol Use Standard Drinks/Week Comments Not Currently 2 (1 standard drink = 0.6 oz pur e alcohol) PHQ-2 Answer Date Recorded PHQ-2 Score 0 03/20/2019 Hunger Vital Sign Answer Date Recorded Within the past 12 months, y ou worried that your food would run out before you got the money to buy more. Never true 10/21/19 24 Within the past 12 months, t he food you bought just didn't last and you didn't have money to get more. Never true 10/21/2023 Dorrance Depression Scale Answer Date Recorded Dorrance Depression Scale Total 4 05/16/2024 The thought of harming myself has occurred to me . Never 05/16/2024 Childcare Answer Date Recorded Do you feel overwhelmed with taking care of a child, family member or friend? No 10/21/2023 Does your family need help f inding childcare? (Household - for ages 0-17 years) Not on file 10/21/2023 Clothing Answer Date Recorded Have you been unable to get clothing when it was really needed? No 10/21/2023 Is your family able to get c lothes or diapers when needed? (Household - for ages 0-17 years) Not on file 10/21/2023 Personal Safety Answer Date Recorded Do you feel unsafe or have concerns for your saf ety? No 10/21/2023 Do you have concerns for you r family's safety? (Household - for ages 0-17 years) Not on file 10/21/2023 Utilities Answer Date Recorded Do you have trouble paying y our heating, water, or electric bill? No 10/21/2023 Is your family able to pay t he heat, water, or electric bill? (Household - for ages 0-17 years) Not on file 10/21/2023 Does your family have access to good internet? (Household - for ages 0-17 years) Not on file 10/21/2023 Employment Status Answer Date Recorded Are you unemployed or without regular income? No 10/21/2023 Does the household have a re lar source of income? (Household - for ages 0-17 years) Not on file 10/21/2023 Social Connections Answer Date Recorded How often do you feel lonely or isolated from th ose around you? Never 10/21/2023 Financial Resource Strain Answer Date R ecorded Do you have any trouble payi ng for your medications, or do you think you might in the future? No 10/21/2023 Does your family have troubl e paying for medicine? (Household - for ages 0-17 years) Not on file 10/21/2023 Transportation Needs Answer Date Record ed Do you have trouble getting a ride to medical visits or work? (Adult - for ages 18 years and over) Not on file 10/21/2023 Does your family have a hard time getting a ride to doctors visits? (Household - for ages 0-17 years) Not on file 10/21/2023 Has lack of transportation k ept you from medical appointments, meetings, work, or from getting things needed for daily living? Check all that apply. No 10/21/2023 Do you (or your family) have trouble finding or paying for a ride (transportation)? (Household - for ages 0-17 years) Not on file 10/21/2023 Housing Stability Answer Date Recorded Do you currently live in a s helter or have no steady place to sleep at night? No 10/21/2023 Do you think you are at risk of becoming homeless? (Adult - for ages 18 years and over) Not on file 10/21/2023 Does your family worry about paying for your home or becoming homeless? (Household - for ages 0-17 years) Not on file 0 10/21/2023 Are you homeless or worried that you might be in the future? No 10/21/2023 Are you (or your family) hima eless or worried that you might be in the future? (Household - for ages 0-17 years) Not on file Food Insecurity Answer Date Recorded Do you need food for this week? No 10/21/2023 Are you able to get enough f ood for your family? (Household - for ages 0-17 years) Not on file 10/21/2023 Does your family need food t his week? (Household - for ages 0-17 years) Not on file 10/21/2023 Do you always have enough fo od for your family? (Household - for ages 0-17 years) Not on file 10/21/2023 Food Insecurity Answer Date Recorded Within the past 12 months, y ou worried that your food would run out before you got the money to buy more. Never true 10/21/19 24 Within the past 12 months, t he food you bought just didn't last and you didn't have money to get more. Never true 10/21/2023 Do you need food for this week? 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 Denies any ROM + FM. Desires membrane strip if possible. * Nakia Franz CNM - 06/07/2024 3:30 PM EDT Pricila Diaz is a 33 year old female here for her routine OB appointment at 39w6d Her Estimated Date of Delivery: 06/08/24 REVIEW OF SYSTEMS: She affirms movement. Denies vaginal bleeding, LOF, contractions, N/V, headaches Only taking Valtrex 500mg once daily. PHYSICAL EXAM: Filed Vitals: 06/07/24 1540 BP: 98/66 Weight: 82.1 kg (181 lb) VE 3-/-2 membranes stripped at pt request. 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 - labor precautions and kick counts reviewed - discussed recommendations for NST twice weekly with visit in the 41st week gestation - IOL 06/12 Nakia Franz CNM documented in this encounter Plan of Treatment Health Maintenance Due Date Last Done Comments COVID-19 Vaccine (#1) 1994 Depression Screening 2001 MENINGOCOCCAL (MENACTRA/MENVEO) (2 - Risk 2-dose series) 10/10/2008 08/15/2008, 08/15/2008 HPV (Gardasil) Vaccine (3 - Risk 3-dose series) 06/21/2014 02/20/2014, 02/20/2014, 11/16/2013, Additional history exists HPV/Co-Test 11/02/2019 Cervical Cancer Screening 04/08/2024 Pap Smear 04/08/2024 04/08/2021, 11/23, 12/14/2014, Additional history exists Influenza Vaccine (FLU shot) (Season Ended) 2024 01/18/2019, 01/18/2019, 11/07/2017, Additional history exists DTap/Tdap Vaccines (10 - Td or Tdap) 03/17/2034 03/17/2024, 08/27/2021, 08/30/2018, Additional history exists Hepatitis B Vaccine Completed 01/22/1992, 01/22/1992, 09/07/1991, Additional history exists Lipid Panel Completed 03/20/2019 Pneumococcal Vaccine: Pediatrics (0 to 5 Years) and At-Risk Patients (6 to 18 Years and 19+ Years) Completed 04/13/2022, 01/06/2016 Meningitis B Vaccine (Bexsero/Trumemba) Aged Out No longer eligible based on patient's age to complete this topic documented as of this encounter Goals Goal Patient Goal Type Associated Problems Recent Progress Patient-Stated? Author Reminders Care Plan OB Reminders No Mychart, Provider documented as of this encounter Medical Devices Not on filedocumented as of this encounter Visit Diagnoses Diagnosis Seizure disorder during in first trimester (HCC)- Primary Maternal asthma complicating Other current maternal conditions classifiable elsewhere, complicating , childbirth, or the puerperium, unspecified as to episode of care Genetic screening Other genetic screening COVID-19 vaccine series started Encounter for anatomic survey- Primary Seizure disorder during in first trimester (HCC) Encounter for supervision of other normal , unspecified trimester- Primary 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
--- OUTSIDE RECORDS SUMMARY | 2024-06-09 01:39 | External Medical Summary | Summary of Care ---
Author Name Unknown Organization [facility] Address [address] [place] [address] Phone [phone] Care Team Providers Care Dials Supervisor Name Role Phone Vipul Adams MD Primary Care Provid er Reason for Visit * Reason Comments Outpatient Testing Encounter Details Date Type Department Care Team (Late st Contact Info) Description 05/23/2024 12:00 PM EDT Laboratory Laboratory, [facility] [address] [place] [id number] [facility] [address] [place] [address] Antepartum anemia complicating Allergies No known active allergiesdocumented as of this encounter (statuses as of 05/23/2024) Medications Albuterol Sulfate (ALBUTEROL HFA) 108 (90 BASE) MCG/ACT inhaler Inhale 2 Puffs by mouth every 4 hours as needed for Cough. 1 Inhaler 11 0 Active Additional Information Patient not taking.Reported on 05/16/2024 fluticasone (FLOVENT HFA) 110 MCG/ACT inhaler Inhale 2 Puffs by mouth 2 times a day. 1 Inhaler 11 0 Active Additional Information Patient not taking.Reported on 05/16/2024 28-0.8 MG Oral Tablet Take by mouth . Active Famotidine 20 MG Oral Tablet Take 1 Tablet by mouth in the morning and 1 Tablet before bedtime. Active valACYclovir HCl 500 MG Oral Tablet (Valtrex) Take by mouth 1 Tablet in the morning AND 1 Tablet before bedtime. Until gone.. 60 Tablet 2 Active Additional Information Patient not taking.Reported on 05/16/2024 Polyethylene Glycol 3350 17 GM Oral Packet (Miralax) Take 1 Packet by mouth in the morning. Active Iron 325 (65 Fe) MG Oral Tablet Take by mouth. Activ e Vitamin C 500 MG Oral Capsule Take by mouth. Active valACYclovir HCl 500 MG Oral Tablet (Valtrex) Take 1 Tablet by mouth 2 times a day. 60 Tablet 1 5 Active documented as of this encounter (statuses as of 05/23/2024) Active Problems Problem Noted Date Diagnosed Date [...] information was shared with the patient. The [place] [employer] of Obstetrics and Gynecology, Society for Maternal- Medicine, CDC and multiple medical associations strongly recommend the COVID-19 vaccine for women who are in any trimester, those attempting to become , women who have recently delivered, who are lactating as well as any other woman, regardless of age or SUPERVISOR PAPER PRODUCTS disorder. The only exceptions to receiving the vaccine are for those who have a contraindication or allergy to the vaccine or any component of the vaccine or with sincerely held oriental orthodox convictions. The CDC and ACOG encourages a [...] as of this encounter (statuses as of 05/23/2024) Resolved Problems Problem Noted Date Diagnosed Date [...] she had been followed by neurology at [facility]. Has had EEGs which have not shown [...] as of this encounter (statuses as of 05/23/2024) Immunizations Name Administration Dates Next Due HPV [...] money to get more. Never true 10/21/2023 [place] Depression Scale Answer Date Recorded [place] Depression Scale Total 4 05/16/2024 The thought [...] 10/21/2023 Does the household have a re gular source of income? 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 Not on file Not on file documented as of this encounter Plan of Treatment Upcoming Encounters Date Type Department Care Team (Late st Contact Info) Description 05/31/2024 8:00 AM EDT Office Visit Gynecology/Obstetrics [facility] [address] [place] [address] Cori Armstrong, MAK, CNM [address] [place] [address] Pending Results Name Type Priority Associated Diagnoses Date /Time CBC WITH WBC DIFFERENTIAL AND ANEMIA REFLEX WORKUP Lab Routine Antepartum anemia complicating 05/23/2024 11:57 AM EDT ANEMIA CBC Lab Routine Antepartum anemia complicating 05/23/2024 11:57 AM EDT DIFFERENTIAL, AUTOMATED Lab Routine Antepartum anemia complicating 05/23/2024 11:57 AM EDT ANEMIA REFLEX CHEMISTRY HOLD Lab Routine Antepartum anemia complicating 05/23/2024 11:57 AM EDT Health Maintenance Due Date Last Done Comments [...] Seizure disorder during in first trimester (HCC) Antepartum anemia complicating Anemia, antepartum documented in this encounter Additional Health Concerns Active Problems Noted Date Diagnosed Date OB Reminders 03/02/2024 documented as of this encounter Care Teams Dials Supervisor Relationship Specialty Start Date End Date Vipul Adams MD [address] [place] [address] PCP - General Family Medicine 10/04/23 documented as of this encounter
--- OUTSIDE RECORDS SUMMARY | 2024-06-09 01:39 | External Medical Summary | Summary of Care ---
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 1 Inhaler 03/20/19 Active Additional Information Patient not taking.Reported on 05/16/2024 fluticasone (FLOVENT HFA) 110 MCG/ACT inhaler Inhale 2 Puffs by mouth 2 times a day. 1 Inhaler 11 01/27/20 20 Active Additional Information Patient not taking.Reported on 05/16/2024 28-0.8 MG Oral Tablet Take by mouth . Ac tive valACYclovir HCl 500 MG Oral Tablet (Valtrex) Take by mouth 1 Tablet in the morning AND 1 Tablet before bedtime. Until gone.. 60 Tablet 10/30/19 Active Additional Information Patient not taking.Reported on [...] Delayed Release Disintegrating Take by mouth. Active Famotidine 20 MG Oral Tablet Take 1 Tablet by mouth in the morning and 1 Tablet before bedtime. 025 Discontin ued(Medic ation List Clean Up) documented as of this encounter (statuses as of 05/31/2024) Active Problems Problem Noted Date Diagnosed Date [...] information was shared with the patient. The [place] College of Obstetrics and Gynecology, Society for Maternal- Medicine, CDC and multiple medical associations strongly recommend the COVID-19 vaccine for women who are in any trimester, those attempting to become , women who have recently delivered, who are lactating as well as any other woman, regardless of age or AUTO TRANSMISSION SPECIALIST disorder. The only exceptions to receiving the vaccine are for those who have a contraindication or allergy to the vaccine or any component of the vaccine or with sincerely held christian convictions. The CDC and ACOG encourages a [...] as of this encounter (statuses as of 05/31/2024) Resolved Problems Problem Noted Date Diagnosed Date [...] she had been followed by neurology at [facility]. Has had EEGs which have not shown [...] as of this encounter (statuses as of 05/31/2024) Immunizations Name Administration Dates Next Due HPV [...] money to get more. 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 Asking to schedule IOL. Offered cervical check, politely declines. No concerns for labor. No regular ctx, LOF, VB. Baby is active. Labor precautions given IOL scheduled 06/12/2024, given information at today's visit Maybe interested in membrane sweep next visit RTC in 1 week Gladys Shelton PA-C documented in this encounter Plan of Treatment Upcoming Encounters Date Type Department Care Team (Late st Contact Info) Description 06/07/2024 3:30 PM EDT Office Visit Gynecology/Obstetrics [facility] [address] [facility] [place] [address] Nakia Franz [facility] [address] [place] [phone] Health Maintenance Due Date Last Done Comments [...] documented as of this encounter Care Teams President Relationship Specialty Start Date End Date Vipul Adams MD [address] [place] [address] PCP - General Family Medicine 10/04/23 documented as of this encounter
--- OUTSIDE RECORDS SUMMARY | 2024-06-09 01:40 | External Medical Summary | Summary of Care ---
Author Name Unknown Organization [facility] Address [address] [place] [place] [facility] [place] [address] Phone [phone] Care Team Providers Care General Sales Manager Name Role Phone Vipul Adams MD Primary Care Provid er Reason for Visit * Reason Comments Return Visit Encounter Details Date Type Department Care Team (Late st Contact Info) Description 03/31/2024 8:45 AM EST Office Visit Gynecology/Obstetric s [facility] [address] [facility] [place] [address] BackNanette frederick CRNP [address] 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 1 Inhaler 11 0 Active Additional Information Patient not taking.Reported on 03/17/2024 fluticasone (FLOVENT HFA) 110 MCG/ACT inhaler Inhale 2 Puffs by mouth 2 times a day. 1 Inhaler 11 0 Active Additional Information Patient not taking.Reported on 03/17/2024 28-0.8 MG Oral Tablet Take by mouth . Active Famotidine 20 MG Oral Tablet Take 1 Tablet by mouth in the morning and 1 Tablet before bedtime. Active valACYclovir HCl 500 MG Oral Tablet (Valtrex) Take by mouth 1 Tablet in the morning AND 1 Tablet before bedtime. Until gone.. 60 Tablet 2 Active Additional Information Patient not taking.Reported on 03/17/2024 Polyethylene Glycol 3350 17 GM Oral Packet (Miralax) Take 1 Packet by mouth in the morning. Active documented as of this encounter (statuses as of 03/31/2024) Active Problems Problem Noted Date Diagnosed Date HSV-2 infection complicating 4 Overview (01/07/2024): Not [...] information was shared with the patient. The [place] College of Obstetrics and Gynecology, Society for Maternal- Medicine, CDC and multiple medical associations strongly recommend the COVID-19 vaccine for women who are in any trimester, those attempting to become , women who have recently delivered, who are lactating as well as any other woman, regardless of age or COMMISSIONER CONSERVATION OF RESOURCES disorder. The only exceptions to receiving the vaccine are for those who have a contraindication or allergy to the vaccine or any component of the vaccine or with sincerely held samaritan convictions. The CDC and ACOG encourages a [...] as of this encounter (statuses as of 03/31/2024) Resolved Problems Problem Noted Date Diagnosed Date [...] as of this encounter (statuses as of 03/31/2024) Immunizations Name Administration Dates Next Due HPV [...] money to get more. Never true 10/21/2023 [place] Depression Scale Answer Date Recorded [place] Depression Scale Total 4 11/15/2023 The thought of harming myself has occurred to me . 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 No regular ctx or leaking/bleeding. Plans to repeat anemia labs today. Discussed FKC and labor precautions. Return in 2 weeks. MARANDA Yanez * Carleen Valladares LPN - 03/31/2024 8:43 AM EST 30w1d Denies vaginal bleeding/rom + movement No new concerns documented in this encounter Plan of Treatment Upcoming Encounters Date Type Department Care Team (Late st Contact Info) Description 04/14/2024 1:30 PM EST Office Visit Gynecology/Obstetrics [facility] [address] [place] [address] Backer, MARANDA Vanegas [address] [place] [address] Health Maintenance Due Date Last Done Comments COVID-19 Vaccine (#1) 1994 MENINGOCOCCAL (MENACTRA/MENV EO) (2 - Risk 2-dose series) 10/10/2008 08/15/2008, 08/15/2008 HPV (Gardasil) Vaccine (3 - Risk 3-dose series) 06/21/2014 02/20/2014, 02/20/2014, 11/16/2013, Additional history exists HPV/Co-Test 11/02/2019 Depression Screening 03/20/2020 03/20/2019 Influenza Vaccine (FLU shot) (#1) 2023 01/18/2019, 01/18/2019, 11/07/2017, Additional history exists Cervical Cancer Screening 04/08/2024 Pap Smear 04/08/2024 04/08/2021, 11/23, 12/14/2014, Additional history exists DTap/Tdap Vaccines (10 - Td or Tdap) 03/17/2034 03/17/2024, 08/27/2021, 08/30/2018, Additional history exists Hepatitis B Vaccine Completed 01/22/1992, 01/22/1992, 09/07/1991, Additional history exists Pneumococcal Vaccine: Pediat rics (0 to 5 Years) and At-Risk Patients (6 to 18 Years and 19+ Years) Completed 04/13/2022, 01/06/2016 documented as of this encounter Goals Goal [...] 2 (HSV-2) infection affecting in third trimester documented in this encounter Additional Health Concerns Active Problems Noted Date Diagnosed Date OB Reminders 03/02/2024 documented as of this encounter Care Teams General Sales Manager Relationship Specialty Start Date End Date Vipul Adams MD [address] [address] PCP - General Family Medicine 10/04/23 documented as of this encounter
--- OUTSIDE RECORDS SUMMARY | 2024-06-09 01:40 | External Medical Summary ---
Author Name Unknown Address Unknown Organization [id number]:[facility] [address] [place] [address] Laboratory Report Ordering Provider Test Date Status JA TAN 03/31/2024 09:09:04 Final Observation Date Value Abnormality Reference (Units ) Status WBC, Total 03/31/2024 09:09:04 11.32 Above high normal 4 .00-10.80 (K/uL) Final RBC 03/31/2024 09:09:04 3.85 3.85-5.15 (M/uL) Final Hemoglobin 03/31/2024 09:09:04 10.9 Below low normal 12 .0-15.3 (g/dL) Final HCT 03/31/2024 09:09:04 34.3 Below low normal 36. 0-45.2 (%) Final MCV 03/31/2024 09:09:04 89.1 81.5-97.5 (fL) Final MCH 03/31/2024 09:09:04 28.3 27.0-34.0 (pg) Final MCHC 03/31/2024 09:09:04 31.8 32.0-36.0 (g/dL) Final RDW 03/31/2024 09:09:04 13.6 11.5-15.5 (%) Final Platelets 03/31/2024 09:09:04 268 140-400 (K /uL) Final MPV 03/31/2024 09:09:04 10.5 6.6-11.1 ( fL) Final Performing Location [facility] [place] [address]
--- OUTSIDE RECORDS SUMMARY | 2024-06-09 01:40 | External Medical Summary ---
Author Name Unknown Address Unknown Organization [id number]:[facility] [place] - [facility] [address] [place] [address] Laboratory Report Ordering Provider Test Date Status LISANDRA KAT 05/23/2024 11:57:12 Final Observation Date Value Abnormality Reference (Units ) Status Creatinine 05/23/2024 11:57:12 0.5 0.5-1.0 (mg/dL) Final Glomerular filtration rate/1.73 sq M.predicted [Volume Rate/Area] in Serum, Plasma or Blood by Creatinine-based formula (CKD-EPI) 05/23/2024 11:57:12 >90 >=60 (mL/min) Final eGFR is calculated based on the CKD-EPI 2020 equation. Performing Location [facility] [place] - [address] [place] [address]
--- OUTSIDE RECORDS SUMMARY | 2024-06-09 01:40 | External Medical Summary ---
Author Name Unknown Address Unknown Organization [id number]:[facility] [place] - [address] [facility] [address] Laboratory Report Ordering Provider Test Date Status LISANDRA KAT 05/23/2024 11:57:12 Final Observation Date Value Abnormality Reference (Units ) Status Iron 05/23/2024 11:57:12 54 33-151 (ug/dL) Final Iron-binding capacity 05/23/2024 11:57:12 400 250-425 (ug/dL) Final Transferrin Sat % 05/23/2024 11:57:12 14 Below low normal 15-55 (%) Final Performing Location [facility] [place] - [address] [facility] [address]
--- OUTSIDE RECORDS SUMMARY | 2024-06-09 01:40 | External Medical Summary ---
Author Name Unknown Address Unknown Organization [id number] [address] [place] [address] Laboratory Report Ordering Provider Test Date Status JA TAN 03/17/2024 09:11:47 Final Observation Date Value Abnormality Reference (Units ) Status Glucose [Moles/volume] in Serum or Plasma --1 hour post 50 g glucose PO 03/17/2024 09:11:47 109 70-129 (mg/dL) Final Performing [facility] [address] - [address] [place] [address]
--- OUTSIDE RECORDS SUMMARY | 2024-06-09 01:40 | External Medical Summary ---
Author Name Unknown Address Unknown Organization [id number]:[facility] [place] - [address] [facility] [address] [place] [address] Laboratory Report Ordering Provider Test Date Status LISANDRA KAT 05/23/2024 11:57:12 Final Observation Date Value Abnormality Reference (Units ) Status Ferritin 05/23/2024 11:57:12 102 13-150 (ng /mL) Final Performing Location [facility] [place] - [address] [facility] [place] [address]
--- OUTSIDE RECORDS SUMMARY | 2024-06-09 01:40 | External Medical Summary | Summary of Care ---
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 The [place] [employer] of Obstetrics and Gynecology, Society for Maternal- Medicine, CDC and multiple medical associations strongly recommend the COVID-19 vaccine for women who are in any trimester, those attempting to become , women who have recently delivered, who are lactating as well as any other woman, regardless of age or LOFT RIGGER disorder. The only exceptions to receiving the [...] as of this encounter (statuses as of 03/17/2024) Resolved Problems Problem Noted Date Diagnosed Date [...] she had been followed by neurology at [facility]. Has had EEGs which have [...] as of this encounter (statuses as of 03/17/2024) Immunizations Name Administration Dates Next Due HPV [...] money to get more. 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 Patient doing well no complaints. Injection given IM as ordered. Patient tolerated well. Patient to follow up as directed. Patient instructed to call if any complications. Patient verbalized understanding of instructions given and her follow up appt for [facility] Injection site: Right Deltoid Medication Source: Dispensed stock medication * Sandra Huerta CRNP - 03/17/2024 8:36 AM EST 28w1d Complaints: none Feeling well. Good FM. No contractions, bleeding, or LOF. Glucola, TDAP today. MARANDA Eddy * Adrianna Mckeon CMA - 03/17/2024 8:21 AM EST 28w1d Denies any concerns TDAP vaccine today documented in this encounter Plan of Treatment Upcoming Encounters Date Type Department Care Team (Late st Contact Info) Description 03/31/2024 8:45 AM EST [facility] [address] [place] [address] Backer, MARANDA Vanegas [address] [place] [address] Health Maintenance Due Date Last Done Comments [...] 2 (HSV-2) infection affecting in third trimester Need for gjynczovwn-virsfmo-uryeskkcm (Tdap) vaccine Need for prophylactic vaccination with combined aeabzasrro-phegisb-povdedlcx (DTP) vaccine documented in this encounter Additional Health Concerns Active Problems Noted Date Diagnosed Date OB Reminders 03/02/2024 documented as of this encounter Care Teams Physiology Teacher Relationship Specialty Start Date End Date Vipul Adams MD [address] [address] PCP - General Family Medicine 10/04/23 documented as of this encounter
--- OUTSIDE RECORDS SUMMARY | 2024-06-09 01:40 | External Medical Summary ---
Author Name Unknown Address Unknown Organization [id number]:[facility] [place] [address] [facility] [address] [place] [address] Laboratory Report Ordering Provider Test Date Status JA TAN 03/31/2024 09:09:04 Final Observation Date Value Abnormality Reference (Units ) Status Ferritin 03/31/2024 09:09:04 123 13-150 (ng /mL) Final Performing Location [facility] [place] - [address] [facility] [place] [address]
--- OUTSIDE RECORDS SUMMARY | 2024-06-09 01:40 | External Medical Summary | Summary of Care ---
Author Name Unknown Organization [facility] Address [address] [place] [address] Phone [phone] Care Team Providers Care Special Investigator Name Role Phone Vipul Adams MD Primary Care Provid er Reason for Visit * Reason Comments Outpatient Testing Encounter Details Date Type Department Care Team (Late st Contact Info) Description 03/31/2024 9:10 AM EST Laboratory Laboratory, [facility] [address] [place] [id number] [facility] [address] [place] [address] Abnormal CBC Allergies No known active allergiesdocumented as of [...] information was shared with the patient. The [employer] Obstetrics and Gynecology, Society for Maternal- Medicine, CDC and multiple medical associations strongly recommend the COVID-19 vaccine for women who are in any trimester, those attempting to become , women who have recently delivered, who are lactating as well as any other woman, regardless of age or TOPPER PACKER disorder. The only exceptions to receiving the vaccine are for those who have a contraindication or allergy to the vaccine or any component of the vaccine or with sincerely held spiritism convictions. The CDC and ACOG encourages a [...] 01/07/2024 Overview (09/16/2021): Blood [facility] at [facility] Seizure disorder during preg checo in first [...] she had been followed by neurology at [facility]. Has had EEGs which have not [...] money to get more. 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 on file Not on file documented as of this encounter Plan of Treatment Upcoming Encounters Date Type Department Care Team (Late st Contact Info) Description 04/14/2024 1:30 PM EST Office Visit Gynecology/Obstetrics [facility] [address] [place] [address] AlexerNanette CRNP [address] [place] [address] Pending Results Name Type Priority Associated Diagnoses Date /Time IRON SCREEN, INCLUDING TIBC Lab Routine Abnormal CBC 03/31/2024 9:09 AM EST FERRITIN Lab Routine Abnormal CBC 03/31/2024 9:09 AM EST Health Maintenance Due Date Last Done Comments [...] Not on filedocumented as of this encounter Procedures Procedure Name Priority Date/Time Associated Diagnosis Comments CBC Routine 03/31/2024 9:09 AM EST Abnormal CBC documented in this encounter Results * (ABNORMAL) CBC (03/31/2024 9:09 AM EST) WBC 11.32(H) 4.00 - 10.80 K/uL 03/31/2024 9:37 AM EST [facility] RBC 3.85 3.85 - 5.15 M/uL 03/31/2024 9:37 AM EST [facility] HGB 10.9(L) 12.0 - 15.3 g/dL 03/31/2024 9:37 AM EST [facility] HCT 34.3(L) 36.0 - 45.2 % 03/31/2024 9:37 AM EST [facility] MCV 89.1 81.5 - 97.5 fL 03/31/2024 9:37 AM EST [facility] MCH 28.3 27.0 - 34.0 pg 03/31/2024 9:37 AM EST [facility] MCHC 31.8 32.0 - 36.0 g/dL 03/31/2024 9:37 AM EST [facility] RDW 13.6 11.5 - 15.5 % 03/31/2024 9:37 AM EST [facility] PLT 268 140 - 400 K/uL 03/31/2024 9:37 AM EST [facility] MPV 10.5 6.6 - 11.1 fL 03/31/2024 9:37 AM EST [facility] Blood Venous blood specimen / Unknown Venipuncture / Unknown 03/31/2024 9:09 AM EST 03/31/2024 9:09 AM EST us Gladys Shelton PA-C LAB BLOOD ORDERABLES Final R esult [facility] [address] [facility] [address] documented in this encounter Visit Diagnoses Diagnosis Seizure disorder during in first trimester (HCC)- Primary Maternal asthma complicating Other current maternal conditions classifiable elsewhere, complicating , childbirth, or the puerperium, unspecified as to episode of care Genetic screening Other genetic screening COVID-19 vaccine series started Encounter for anatomic survey- Primary Seizure disorder during in first trimester (HCC) Abnormal CBC Other abnormal blood chemistry documented in this encounter Additional Health Concerns Active Problems Noted Date Diagnosed Date OB Reminders 03/02/2024 documented as of this encounter Care Teams Special Investigator Relationship Specialty Start Date End Date Vipul Adams MD [address] [place] [address] PCP - General Family Medicine 10/04/23 documented as of this encounter
--- OUTSIDE RECORDS SUMMARY | 2024-06-09 01:40 | External Medical Summary ---
Author Name Unknown Address Unknown Organization [id number]:[facility] - [facility] [place] [address] Laboratory Report Ordering Provider Test Date Status LISANDRA KAT 05/23/2024 11:57:12 Final Observation Date Value Abnormality Reference (Units ) Status Retic, % (auto) 05/23/2024 11:57:12 1.83 0.80-1.90 (%) Final Reticulocytes, Absolute 05/23/2024 11:57:12 72.7 31.3-100.1 (K/uL) Final Reticulocyte fraction, immature 05/23/2024 11:57:12 16.9 2.5-20.6 (%) Final Reticulocyte HGB 05/23/2024 11:57:12 31.7 29.7-37.4 (pg) Final Performing Location [facility] - [address] [place] [address]
--- OUTSIDE RECORDS SUMMARY | 2024-06-09 01:40 | External Medical Summary | Summary of Care ---
Author Name Unknown Organization [facility] Address [address] [place] [address] Phone [phone] Care Team Providers Care Emd Special Education Teacher Name Role Phone Vipul Adams MD Primary Care Provid er Reason for Visit * Reason Comments Return Visit Encounter Details Date Type Department Care Team (Late st Contact Info) Description 05/23/2024 11:45 AM EDT Office Visit Gynecology/Obstetric s [facility] [address] [facility] [place] [address] Nanette Wick CRNP [address] [facility] [place] [address] Encounter for supervision of other normal , [...] information was shared with the patient. The [place] [employer] of Obstetrics and Gynecology, Society for Maternal- Medicine, CDC and multiple medical associations strongly recommend the COVID-19 vaccine for women who are in any trimester, those attempting to become , women who have recently delivered, who are lactating as well as any other woman, regardless of age or SOCIETY EDITOR disorder. The only exceptions to receiving the [...] money to get more. 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 Baby is active. No regular ctx or LOF, bleeding.Will recheck CBC today, has been on iron for about 4 weeks. Will likely restart POPs post-. Heartburn is still bothersome, not much relief with Tums or famotidine. Drinking milk seems to help. Advised she can try OTC omeprazole. 1 week return MARANDA Yanez * Carleen Valladares LPN - 05/23/2024 11:33 AM EDT 37w5d Denies vaginal bleeding/rom + movement documented in this encounter Plan of Treatment Upcoming Encounters Date Type Department Care Team (Late st Contact Info) Description 05/31/2024 8:00 AM EDT Office Visit Gynecology/Obstetrics [facility] [address] [place] [address] Cori Armstrong, DNP, CN [address] [place] [address] Pending Results Name Type Priority Associated Diagnoses Date /Time CBC WITH WBC DIFFERENTIAL AND ANEMIA REFLEX WORKUP Lab Routine Antepartum anemia complicating 05/23/2024 11:57 AM EDT Scheduled Orders Name Type Priority Associated Diagnoses Orde r Schedule CBC WITH WBC DIFFERENTIAL AND ANEMIA REFLEX WORKUP Lab Routine Antepartum anemia complicating Expected: 05/23/2024 (Approximate), Expires: 05/23/2025 Health Maintenance Due Date Last Done Comments [...] documented as of this encounter Care Teams Emd Special Education Teacher Relationship Specialty Start Date End Date Vipul Adams MD [address] [place] [address] PCP - General Family Medicine 10/04/23 documented as of this encounter
--- OUTSIDE RECORDS SUMMARY | 2024-06-09 01:40 | External Medical Summary | Summary of Care ---
Author Name Unknown Organization [facility] Address [address] [place] [facility] [place] [address] Phone [phone] Care Team Providers Care Claim Service Representative Name Role Phone Vipul Adams MD Primary Care Provid er Reason for Visit * Reason Onset Date Comments Forms Request 04/20/2024 Encounter Details Date Type Department Care Team (Late st Contact Info) Description 04/20/2024 Telephone Gynecology/Obstetrics [facility] [address] [facility] [place] [address] Sandra Huerta CRNP [address] [facility] [address] Forms Request Allergies No known active allergiesdocumented as of this encounter (statuses as of 04/20/2024) Medications Albuterol Sulfate (ALBUTEROL HFA) 108 (90 [...] as of this encounter (statuses as of 04/20/2024) Active Problems Problem Noted Date Diagnosed Date [...] information was shared with the patient. The [place] College of Obstetrics and Gynecology, Society for Maternal- Medicine, CDC and multiple medical associations strongly recommend the COVID-19 vaccine for women who are in any trimester, those attempting to become , women who have recently delivered, who are lactating as well as any other woman, regardless of age or KAIAKO KOHANGA REO disorder. The only exceptions to receiving the vaccine are for those who have a contraindication or allergy to the vaccine or any component of the vaccine or with sincerely held judaism convictions. The CDC and ACOG encourages a [...] as of this encounter (statuses as of 04/20/2024) Resolved Problems Problem Noted Date Diagnosed Date Resolved Date Antepartum anemia complicating 09/16/2021 01/07/2024 Overview (09/16/2021): Blood management referral at [facility] Seizure disorder during preg checo in first [...] she had been followed by neurology at [facility]. Has had EEGs which have [...] as of this encounter (statuses as of 04/20/2024) Immunizations Name Administration Dates Next Due HPV [...] money to get more. 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 Can be picked up in triage. documented in this encounter Plan of Treatment Upcoming Encounters Date Type Department Care Team (Late st Contact Info) Description 04/26/2024 3:15 PM EST [facility] [address] [place] [address] Sandra Huerta CRNP [address] [place] [address] Health Maintenance Due Date Last Done Comments COVID-19 Vaccine (#1) 1994 MENINGOCOCCAL (MENACTRA/MENVEO) (2 - Risk 2-dose series) [...] 01/22/1992, 09/07/1991, Additional history exists Pneumococcal Vaccine: Pediatrics (0 to 5 Years) and At-Risk Patients (6 to 18 Years and 19+ Years) Completed 04/13/2022, 01/06/2016 Meningitis B Vaccine (Bexsero/Trumemba) Aged Out No longer eligible based on patient's age to complete this topic documented as of this encounter Goals Goal Patient Goal Type Associated Problems Recent Progress Patient-Stated? Author Reminders Care Plan OB Reminders No Marisol, Provider documented as of this encounter Medical Devices Not on filedocumented as of this encounter Additional Health Concerns Active Problems Noted Date Diagnosed Date OB Reminders 03/02/2024 documented as of this encounter Care Teams Claim Service Representative Relationship Specialty Start Date End Date Vipul Adams MD [address] [place] [address] PCP - General Family Medicine 10/04/23 documented as of this encounter
--- OUTSIDE RECORDS SUMMARY | 2024-06-09 01:40 | External Medical Summary ---
Author Name Unknown Address Unknown Organization [id number]:[facility] [place] [address] [place] [address] Laboratory Report Ordering Provider Test Date Status NORTHBACKER 05/23/2024 11:57:12 Final Observation Date Value Abnormality Reference (Units ) Status SYNC LEUKOCYTES IN BLOOD BY AUTOMATED COUNT 05/23/2024 11:57:12 10.91 Above high normal 4.00-10.80 (K/uL) Final Segs 05/23/2024 11:57:12 71.9 40.0-75.0 (%) Final Lymphs % 05/23/2024 11:57:12 17.3 Below low normal 18.0-42.0 (%) Final Monos 05/23/2024 11:57:12 8.1 1.0-11.0 (%) Final Eosinophils 05/23/2024 11:57:12 1.6 0.0-6.0 (%) Final Basos 05/23/2024 11:57:12 0.5 0.0-2.0 (%) Final Immature Granulocyte, Percent 05/23/2024 11:57:12 0.6 0.0-2.0 (%) Final Absolute Segs 05/23/2024 11:57:12 7.85 Above high normal 1.80-7.70 (K/uL) Final Lymphs, absolute 05/23/2024 11:57:12 1.89 1.00-4.80 (K/ul) Final Monos, Abs 05/23/2024 11:57:12 0.88 0.00-1.10 (K/uL) Final Eos, Abs 05/23/2024 11:57:12 0.17 0.00-0.70 (K/uL) Final Basos, Abs 05/23/2024 11:57:12 0.05 0.00-0.20 (K/uL) Final Immature Granulocytes, Number 05/23/2024 11:57:12 0.07 0.00-0.20 (K/uL) Final Performing Location [facility] [place] [address] [facility] [address]
--- OUTSIDE RECORDS SUMMARY | 2024-06-09 01:40 | External Medical Summary | Summary of Care ---
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 1 Inhaler 0 Active Additional Information Patient not taking.Reported on 03/17/2024 fluticasone (FLOVENT HFA) 110 MCG/ACT inhaler Inhale 2 Puffs by mouth 2 times a day. 1 Inhaler 0 Active Additional Information Patient not taking.Reported [...] as of this encounter (statuses as of 04/26/2024) Active Problems Problem Noted Date Diagnosed Date [...] information was shared with the patient. The [place] College of Obstetrics and Gynecology, Society for Maternal- Medicine, CDC and multiple medical associations strongly recommend the COVID-19 vaccine for women who are in any trimester, those attempting to become , women who have recently delivered, who are lactating as well as any other woman, regardless of age or ACOUSTIC ENGINEER disorder. The only exceptions to receiving the vaccine are for those who have a contraindication or allergy to the vaccine or any component of the vaccine or with sincerely held zoroastrianism convictions. The CDC and ACOG encourages a [...] as of this encounter (statuses as of 04/26/2024) Resolved Problems Problem Noted Date Diagnosed Date [...] she had been followed by neurology at [facility]. Has had EEGs which have [...] as of this encounter (statuses as of 04/26/2024) Immunizations Name Administration Dates Next Due HPV [...] money to get more. 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 No other concerns. Would like to take valtrex for prophylaxis despite her HSV being in other areas of body. Rx sent today, to start at 36w. Baby is active. Denies contractions, bleeding, LOF. MARANDA Eddy documented in this encounter Plan of Treatment Upcoming Encounters Date Type Department Care Team (Late st Contact Info) Description 05/16/2024 8:00 AM EDT Office Visit Gynecology/Obstetrics [facility] [address] [place] [address] Sandra Huerta CRNP [address] [place] [address] Health Maintenance Due Date Last Done Comments [...] Author Reminders Care Plan OB Reminders No Adolfo Damon documented as of this encounter Medical Devices [...] documented as of this encounter Care Teams Road Tester Relationship Specialty Start Date End Date Vipul Adams MD [address] [place] [address] PCP - General Family Medicine 10/04/23 documented as of this encounter
--- OUTSIDE RECORDS SUMMARY | 2024-06-09 01:40 | External Medical Summary ---
Author Name Unknown Address Unknown Organization K01:[facility] [place] [address] [place] [address] Laboratory Report Ordering Provider Test Date Status ART CLEMONS 05/16/2024 08:02:48 Final Observation Date Value Abnormality Reference (Units ) Status Streptococcus agalactiae DNA [Presence] in Specimen by BOB with probe detection 05/16/2024 08:02:48 Negative Negative Final No Group B Streptococcus det ected by culture-enhanced PCR (amplified probe). GBS GBSCT - [facility] 05/16/2024 08:02:48 0.0 Final GBS SPCCT - [facility] 05/16/2024 08:02:48 30.5 Final Performing Location [facility] - [address] [place] [address]
--- OUTSIDE RECORDS SUMMARY | 2024-06-09 01:40 | External Medical Summary ---
Author Name Unknown Address Unknown Organization [id number]:[facility] [address] [facility] [address] [place] [address] Laboratory Report Ordering Provider Test Date Status NORTHBACKER 05/23/2024 11:57:12 Final Observation Date Value Abnormality Reference (Units ) Status WBC, Total 05/23/2024 11:57:12 10.91 Above high normal 4 .00-10.80 (K/uL) Final RBC 05/23/2024 11:57:12 4.01 3.85-5.15 (M/uL) Final Hemoglobin 05/23/2024 11:57:12 11.4 Below low normal 12 .0-15.3 (g/dL) Final Anemia reflex testing trigge rs on a HGB < 12.0 for Females and HGB < 13.0 for Males in accordance with the WHO Anemia Guidelines
Anemia reflex testing triggers on a HGB < 12.0 for Females and HGB < 13.0 for Males in accordance with the WHO Anemia Guidelines HCT 05/23/2024 11:57:12 36.0 36.0-45.2 (%) Final MCV 05/23/2024 11:57:12 89.8 81.5-97.5 (fL) Final MCH 05/23/2024 11:57:12 28.4 27.0-34.0 (pg) Final MCHC 05/23/2024 11:57:12 31.7 32.0-36.0 (g/dL) Final RDW 05/23/2024 11:57:12 14.6 11.5-15.5 (%) Final Platelets 05/23/2024 11:57:12 269 140-400 (K /uL) Final MPV 05/23/2024 11:57:12 11.1 6.6-11.1 ( fL) Final Nucleated erythrocytes/100 leukocytes [Ratio] in Blood by Automated count 05/23/2024 11:57:12 0 <=0 (/100 WBCs) Fi [facility] Performing Location [facility] [place] [address] [facility] [address]
--- OUTSIDE RECORDS SUMMARY | 2024-06-09 01:40 | External Medical Summary | Summary of Care ---
Author Name Unknown Organization [facility] Address [address] [place] [address] Phone [phone] Care Team Providers Care Oracle Etl Developer Name Role Phone Vipul Adams MD Primary Care Provid er Reason for Visit * Reason Comments Return Visit Encounter Details Date Type Department Care Team (Late st Contact Info) Description 05/16/2024 8:00 AM EDT Office Visit Gynecology/Obstetric s [place] [facility] [address] [facility] [place] [address] Sandra Huerta CRNP [address] [place] [address] Encounter for supervision of other normal , unspecified trimester*; 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 The [place] College of Obstetrics and Gynecology, Society for Maternal- Medicine, CDC and multiple medical associations strongly recommend the COVID-19 vaccine for women who are in any trimester, those attempting to become , women who have recently delivered, who are lactating as well as any other woman, regardless of age or RN SPINE disorder. The only exceptions to receiving the vaccine are for those who have a contraindication or allergy to the vaccine or any component of the vaccine or with sincerely held advent convictions. The CDC and ACOG encourages a [...] as of this encounter (statuses as of 05/16/2024) Resolved Problems Problem Noted Date Diagnosed Date [...] she had been followed by neurology at [facility]. Has had EEGs which have [...] as of this encounter (statuses as of 05/16/2024) Immunizations Name Administration Dates Next Due HPV [...] money to get more. 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 Baby is active. No regular contractions. Started Valtrex. GBS today. 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 Name of green chain marker: MARANDA Willis * Adrianna Mckeon CMA - 05/16/2024 7:53 AM EDT 36w5d GBS today documented in this encounter Plan of Treatment Upcoming Encounters Date Type Department Care Team (Late st Contact Info) Description 05/23/2024 11:45 AM EDT Office Visit Gynecology/Obstetrics [facility] [address] [place] [address] BackerNanette CRNP [address] [place] [address] Pending Results Name Type Priority Associated Diagnoses Date /Time GROUP B STREP CULTURE/PCR Lab Routine Encounter for supervision of other normal , unspecified trimester 05/16/2024 8:02 AM EDT Scheduled Orders Name Type Priority Associated Diagnoses Orde r Schedule GROUP B STREP CULTURE/PCR Lab Routine Encounter for supervision of other normal , unspecified trimester Expected: 05/16/2024, Expires: 05/16/2025 Health Maintenance Due Date Last Done Comments [...] Author Reminders Care Plan OB Reminders No Aniat, Provider documented as of this encounter Medical [...] documented as of this encounter Care Teams Oracle Etl Developer Relationship Specialty Start Date End Date Vipul Adams MD [address] [address] PCP - General Family Medicine 10/04/23 documented as of this encounter
--- OUTSIDE RECORDS SUMMARY | 2024-06-09 01:40 | External Medical Summary | Summary of Care ---
Author Name Unknown Organization [facility] Address [address] [place] [address] Phone [phone] Care Team Providers Care Rail Car Painter/Sandblaster Name Role Phone Vipul Adams MD Primary Care Provid er Reason for Visit * Reason Comments Return Visit Encounter Details Date Type Department Care Team (Late st Contact Info) Description 04/14/2024 11:45 AM EST Office Visit Gynecology/Obstetric s [place] [facility] [address] [place] [address] Sandra Huerta CRNP [address] [place] [address] Encounter for supervision of other normal , unspecified trimester*; Herpes simplex type 2 (HSV-2) infection affecting , antepartum Allergies No known active allergiesdocumented as of this encounter (statuses as of 04/14/2024) Medications Albuterol Sulfate (ALBUTEROL HFA) 108 (90 [...] as of this encounter (statuses as of 04/14/2024) Active Problems Problem Noted Date Diagnosed Date [...] information was shared with the patient. The [place] College of Obstetrics and Gynecology, Society for Maternal- Medicine, CDC and multiple medical associations strongly recommend the COVID-19 vaccine for women who are in any trimester, those attempting to become , women who have recently delivered, who are lactating as well as any other woman, regardless of age or POWERHOUSE OPERATOR disorder. The only exceptions to receiving the [...] as of this encounter (statuses as of 04/14/2024) Resolved Problems Problem Noted Date Diagnosed Date [...] she had been followed by neurology at [facility]. Has had EEGs which have not [...] as of this encounter (statuses as of 04/14/2024) Immunizations Name Administration Dates Next Due HPV [...] money to get more. 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 Hasn't started iron yet- can't remember to tile picker from the store. Encouraged her to do her best to get this started soon. Baby is active. No contractions or bleeding. MARANDA Eddy * SteenAndreina vega LPN - 04/14/2024 11:45 AM EST 32w1d Has not started Vitron C documented in this encounter Plan of Treatment Upcoming Encounters Date Type Department Care Team (Late st Contact Info) Description 04/26/2024 3:15 PM EST Office Visit Gynecology/Obstetrics [place] [facility] [address] [place] [address] Sandra Huerta CRNP [address] [place] [address] Health Maintenance Due Date Last Done Comments [...] normal , unspecified trimester- Primary Herpes simplex type 2 (HSV-2) infection affecting , antepartum documented in this encounter Additional Health Concerns Active Problems Noted Date Diagnosed Date OB Reminders 03/02/2024 documented as of this encounter Care Teams Rail Car Painter/Sandblaster Relationship Specialty Start Date End Date Vipul Adams MD [address] [address] PCP - General Family Medicine 10/04/23 documented as of this encounter
--- OUTSIDE RECORDS SUMMARY | 2024-06-09 01:40 | External Medical Summary ---
Author Name Unknown Address Unknown Organization [id number]:[facility] [place] [address] [place] [address] Laboratory Report Ordering Provider Test Date Status JA TAN 03/31/2024 09:09:04 Final Observation Date Value Abnormality Reference (Units ) Status Iron 03/31/2024 09:09:04 62 33-151 (ug /dL) Final Iron-binding capacity 03/31/2024 09:09:04 397 250-425 (ug/dL) Final Transferrin Sat % 03/31/2024 09:09:04 16 15 -55 (%) Final Performing Location [facility] [place] [address] [place] [address]
--- OUTSIDE RECORDS SUMMARY | 2024-06-09 01:40 | External Medical Summary | Summary of Care ---
Author Name Unknown Organization [facility] Address [address] [place] [address] Phone [phone] Care Team Providers Care Rubber Flap Tuber Machine Operator Name Role Phone Vipul Adams MD Primary Care Provid er Reason for Visit * Reason Comments Outpatient Testing Encounter Details Date Type Department Care Team (Late st Contact Info) Description 03/17/2024 8:00 AM EST Laboratory Laboratory, [facility] [address] [place] [id number] [facility] [address] [place] [address] Encounter for supervision of other normal , unspecified trimester Allergies No known active allergiesdocumented as [...] information was shared with the patient. The [place] College of Obstetrics and Gynecology, Society for Maternal- Medicine, CDC and multiple medical associations strongly recommend the COVID-19 vaccine for women who are in any trimester, those attempting to become , women who have recently delivered, who are lactating as well as any other woman, regardless of age or SENIOR QUALITY CONTROL TECHNICIAN disorder. The only exceptions to receiving the vaccine are for those who have a contraindication or allergy to the vaccine or any component of the vaccine or with sincerely held anglican convictions. The CDC and ACOG encourages a [...] 01/07/2024 Overview (09/16/2021): [facility] Seizure disorder during preg checo in first [...] by neurology at [facility]. Has had EEGs which have not shown [...] money to get more. 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 Not on file Not on file documented as of this encounter Plan of Treatment Upcoming Encounters Date Type Department Care Team (Late st Contact Info) Description 03/31/2024 8:45 AM EST [facility] [address] [place] [address] BackNanette frederick CRNP [address] [place] [address] Pending Results Name Type Priority Associated Diagnoses Date /Time 50-G GESTATIONAL GLUCOSE, 1 HOUR Lab Routine Encounter for supervision of other normal , unspecified trimester 03/17/2024 9:11 AM EST Health Maintenance Due Date Last [...] supervision of other normal , unspecified trimester documented in this encounter Additional Health Concerns Active Problems Noted Date Diagnosed Date OB Reminders 03/02/2024 documented as of this encounter Care Teams Rubber Flap Tuber Machine Operator Relationship Specialty Start Date End Date Vipul Adams MD [address] [place] [address] PCP - General Family Medicine 10/04/23 documented as of this encounter
--- OUTSIDE RECORDS SUMMARY | 2024-06-09 01:41 | External Medical Summary | Summary of Care ---
Author Name Unknown Organization [facility] Address [address] [place] [facility] [place] [address] Phone [phone] Care Team Providers Care Log Operations Coordinator Name Role Phone Vipul Adams MD Primary Care Provid er Reason for Visit * Reason Comments Return Visit Encounter Details Date Type Department Care Team (Late st Contact Info) Description 03/03/2024 7:45 AM EST Office Visit Gynecology/Obstetric s [place] [facility] [address] [place] [address] Gladys Shelton PA-C [address] [employer] [place] [address] Encounter for supervision of other normal , unspecified trimester*; Herpes simplex virus type 2 (HSV-2) infection affecting in second trimester Allergies No known active allergiesdocumented as of this encounter (statuses as of 03/03/2024) Medications Albuterol Sulfate (ALBUTEROL HFA) 108 (90 BASE) MCG/ACT inhaler Inhale 2 Puffs by mouth every 4 hours as needed for Cough. 1 Inhaler 0 Active Additional Information Patient not taking.Reported on 11/04/2023 fluticasone (FLOVENT HFA) 110 MCG/ACT inhaler Inhale 2 Puffs by mouth 2 times a day. 1 Inhaler 11 0 Active Additional Information Patient not taking.Reported on 11/04/2023 28-0.8 MG Oral Tablet Take by mouth . Active Famotidine 20 MG Oral Tablet Take 1 Tablet by mouth in the morning and 1 Tablet before bedtime. Active valACYclovir HCl 500 MG Oral Tablet (Valtrex) Take by mouth 1 Tablet in the morning AND 1 Tablet before bedtime. Until gone.. 60 Tablet 2 Active Additional Information Patient not taking.Reported on 11/04/2023 Polyethylene Glycol 3350 17 GM Oral Packet (Miralax) Take 1 Packet by mouth in the morning. Active documented as of this encounter (statuses as of 03/03/2024) Active Problems Problem Noted Date Diagnosed Date [...] employer she believes end of January of 2019/beginning of February in 2020. She is eligable for booster dose. Assessment & Plan (04/11/2021 9:57 AM EST): During the visit today, COVID-19 vaccination was discussed and all questions were answered. The following information was shared with the patient. The [place] College of Obstetrics and Gynecology, Society for Maternal- Medicine, CDC and multiple medical associations strongly recommend the COVID-19 vaccine for women who are in any trimester, those attempting to become , women who have recently delivered, who are lactating as well as any other woman, regardless of age or HOUSE PRINCIPAL disorder. The only exceptions to receiving the [...] as of this encounter (statuses as of 03/03/2024) Resolved Problems Problem Noted Date Diagnosed Date [...] she had been followed by neurology at [facility]. Has had EEGs which have [...] as of this encounter (statuses as of 03/03/2024) Immunizations Name Administration Dates Next Due HPV [...] TDAP, Age 7 and older, IM (Adacel) 08/15/2008 documented as of this encounter Social History [...] money to get more. 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 Feeling exhausted. Pt states started Wednesday. Was awake and unable to fall back asleep Wednesday. Sleep better now. Asking if she could do CBC today. Did have anemia lastpregnancy. Glucola with next visit. Will do CBC today. Denies VB, LOF, contraction. Pos fm. RTC in 2 weeks Gladys Shelton PA-C documented in this encounter Nursing Notes * Qing Lomeli LPN - 03/03/2024 7:42 AM EST 26w1d Exhaustion. documented in this encounter Plan of Treatment Upcoming Encounters Date Type Department Care Team (Late st Contact Info) Description 03/03/2024 8:20 AM EST Laboratory Laboratory, [facility] [address] [place] [phone] Otero[facility]bie vega [facility] [address] [place] [address] Encounter for supervision of other normal , unspecified trimester 03/17/2024 8:30 AM EST Office Visit Gynecology/Obstetric s [facility] [address] [place] [address] Sandra Huerta CRNP [address] [place] [address] Pending Results Name Type Priority Associated Diagnoses Date /Time CBC WITH WBC DIFFERENTIAL AND ANEMIA REFLEX WORKUP Lab Routine Encounter for supervision of other normal , unspecified trimester 03/03/2024 8:06 AM EST SYPHILIS ANTIBODY SCREEN WITH REFLEX TO RPR Lab Routine Encounter for supervision of other normal , unspecified trimester 03/03/2024 8:06 AM EST Scheduled Orders Name Type Priority Associated Diagnoses Orde r Schedule 50-G GESTATIONAL GLUCOSE, 1 HOUR Lab Routine Encounter for supervision of other normal , unspecified trimester Expected: 03/17/2024 (Approximate), Expires: 03/03/2025 CBC WITH WBC DIFFERENTIAL AND ANEMIA REFLEX WORKUP Lab Routine Encounter for supervision of other normal , unspecified trimester Expected: 03/03/2024 (Approximate), Expires: 03/03/2025 SYPHILIS ANTIBODY SCREEN WITH REFLEX TO RPR Lab Routine Encounter for supervision of other normal , unspecified trimester Expected: 03/03/2024 (Approximate), Expires: 03/03/2025 Health Maintenance Due Date Last Done Comments [...] 11/23, 12/14/2014, Additional history exists DTap/Tdap Vaccines (9 - Td o r Tdap) 08/28/2031 08/27/2021, 08/30/2018, 08/15/2008, Additional history exists Hepatitis B Vaccine Completed [...] virus type 2 (HSV-2) infection affecting in second trimester Encounter for supervision of other normal , unspecified trimester documented in this encounter Additional Health Concerns Active Problems Noted Date Diagnosed Date OB Reminders 03/02/2024 documented as of this encounter Care Teams Log Operations Coordinator Relationship Specialty Start Date End Date Vipul Adams MD [address] [address] PCP - General Family Medicine 10/04/23 documented as of this encounter
--- OUTSIDE RECORDS SUMMARY | 2024-06-09 01:41 | External Medical Summary ---
Author Name Unknown Address Unknown Organization [id number]:[facility] [place] [address] [place] [address] Laboratory Report Ordering Provider Test Date Status JA TAN 03/03/2024 08:06:04 Final Observation Date Value Abnormality Reference (Units ) Status TSH 03/03/2024 08:06:04 1.79 0.27-4.20 (uIU/mL) Final Performing Location [facility] [place] - [address] [place] [address]
--- OUTSIDE RECORDS SUMMARY | 2024-06-09 01:41 | External Medical Summary | Summary of Care ---
Author Name Unknown Organization [facility] Address [address] [facility] [place] [address] Phone [phone] Care Team Providers Care Film Coater Name Role Phone Vipul Adams MD Primary Care Provid er Encounter Details Date Type Department Care Team (Late st Contact Info) Description 03/14/2024 Orders Only PATIENT PORTAL DO NOT DELETE THIS DEPT USED BY [place] [id number] Allergies No known active allergiesdocumented as of this encounter (statuses as of 03/14/2024) Medications Albuterol Sulfate (ALBUTEROL HFA) 108 (90 [...] as of this encounter (statuses as of 03/14/2024) Active Problems Problem Noted Date Diagnosed Date [...] information was shared with the patient. The [place] College of Obstetrics and Gynecology, Society for Maternal- Medicine, CDC and multiple medical associations strongly recommend the COVID-19 vaccine for women who are in any trimester, those attempting to become , women who have recently delivered, who are lactating as well as any other woman, regardless of age or CASE LINER disorder. The only exceptions to receiving the vaccine are for those who have a contraindication or allergy to the vaccine or any component of the vaccine or with sincerely held anabaptist convictions. The CDC and ACOG encourages a [...] as of this encounter (statuses as of 03/14/2024) Resolved Problems Problem Noted Date Diagnosed Date [...] she had been followed by neurology at [facility]. Has had EEGs which have [...] as of this encounter (statuses as of 03/14/2024) Immunizations Name Administration Dates Next Due HPV [...] money to get more. 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
--- OUTSIDE RECORDS SUMMARY | 2024-06-09 01:41 | External Medical Summary ---
Author Name Unknown Address Unknown Organization [id number]:[facility] [place] [address] [place] [address] Laboratory Report Ordering Provider Test Date Status JA TAN 03/03/2024 08:06:04 Final Observation Date Value Abnormality Reference (Units ) Status Folic Acid 03/03/2024 08:06:04 >20.0 >4.5 (ng/ mL) Final Performing Location [facility] [place] [address] [place] [address]
--- OUTSIDE RECORDS SUMMARY | 2024-06-09 01:41 | External Medical Summary ---
Author Name Unknown Address Unknown Organization [id number]:[facility] [place] [address] [place] [address] Laboratory Report Ordering Provider Test Date Status JA TAN 03/03/2024 08:06:04 Final Observation Date Value Abnormality Reference (Units ) Status Ferritin 03/03/2024 08:06:04 160 Above high normal 13 -150 (ng/mL) Final Performing Location [facility] [place] [address] [place] [address]
--- OUTSIDE RECORDS SUMMARY | 2024-06-09 01:41 | External Medical Summary | Summary of Care ---
Author Name Unknown Organization [facility] Address [address] [place] [address] Phone [phone] Care Team Providers Care Senior Ui Ux Developer Name Role Phone Vipul Adams MD Primary Care Provid er Reason for Visit * Reason Onset Date Comments Test Results 03/06/2024 Encounter Details Date Type Department Care Team (Late st Contact Info) Description 03/06/2024 Telephone Gynecology/Obstetrics [facility] [address] [place] [phone] Gladys Shelton PA-C [address] [facility] [place] [address] Test Results Allergies No known active allergiesdocumented as of this encounter (statuses as of 03/08/2024) Medications Albuterol Sulfate (ALBUTEROL HFA) 108 (90 [...] as of this encounter (statuses as of 03/08/2024) Active Problems Problem Noted Date Diagnosed Date [...] information was shared with the patient. The [place] College of Obstetrics and Gynecology, Society for Maternal- Medicine, CDC and multiple medical associations strongly recommend the COVID-19 vaccine for women who are in any trimester, those attempting to become , women who have recently delivered, who are lactating as well as any other woman, regardless of age or APPRENTICE PAINTER BRUSH disorder. The only exceptions to receiving the vaccine are for those who have a contraindication or allergy to the vaccine or any component of the vaccine or with sincerely held yarsanism convictions. The CDC and ACOG encourages a [...] as of this encounter (statuses as of 03/08/2024) Resolved Problems Problem Noted Date Diagnosed Date Resolved Date Antepartum anemia complicating 09/16/2021 01/07/2024 Overview (09/16/2021): [facility] Seizure disorder during preg checo in [...] she had been followed by neurology at [facility]. Has had EEGs which have not [...] as of this encounter (statuses as of 03/08/2024) Immunizations Name Administration Dates Next Due HPV [...] money to get more. 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 She verbalized understanding and is aware to have repeat labs. * Telephone Encounter - Gladys Shelton PA-C - 03/08/2024 7:58 AM EST Please reach out to patient and let her know I received response back from Hematology. They stated may be due to fact she was sick over [place]. They recommended repeat labs in 2-4 weeks. They asked her to fast ahead of next labs. Orders are placed so she can come to lab * Telephone Encounter - Gladys Shelton PA-C - 03/06/2024 2:45 PM EST Ask-a-doc sent to hematology will await response. Gladys Shelton PA-C * Telephone Encounter - Marilynn Leblanc LPN - 03/06/2024 2:11 PM EST Pt returned call- Pt is not taking any other iron than what is in her . Pt denied any family history of blood disorders. Marilynn Leblanc LPN 03/06/2024 2:15 PM * Telephone Encounter - Andreea Rich LPN - 03/06/2024 12:56 PM EST left message for patient to call office * Telephone Encounter - Gladys Shelton PA-C - 03/06/2024 12:49 PM EST Labs showed anemia, mild. However her ferritin levels were elevated which would be inconsistent with iron deficiency anemia which is most common in . Is she taking any oral iron beyond what is in her vitamins currently? Any history of elevated iron levels in family or in herself or other blood disorders? If not, will reach out to hematology for recommendations. May likely have to repeat some blood workin future. documented in this encounter Plan of Treatment Upcoming Encounters Date Type Department Care Team (Late st Contact Info) Description 03/17/2024 8:30 AM EST Office Visit Gynecology/Obstetrics [facility] [address] [place] [address] Sandra Huerta CRNP [address] [place] [address] Scheduled Orders Name Type Priority Associated Diagnoses Orde r Schedule IRON SCREEN, INCLUDING TIBC Lab Routine Abnormal CBC Expected: 03/22/2024, Expires: 03/08/2025 FERRITIN Lab Routine Abnormal CBC Expected: 03/22/2024, Expires: 03/08/2025 CBC Lab Routine Abnormal CBC Expected: 03/22/2024, Expires: 03/08/2025 Health Maintenance Due Date Last Done Comments [...] disorder during in first trimester (HCC) Abnormal CBC- Primary Other abnormal blood chemistry documented in this encounter Additional Health Concerns Active Problems Noted Date Diagnosed Date OB Reminders 03/02/2024 documented as of this encounter Care Teams Senior Ui Ux Developer Relationship Specialty Start Date End Date Vipul Adams MD [address] [place] [address] PCP - General Family Medicine 10/04/23 documented as of this encounter
--- OUTSIDE RECORDS SUMMARY | 2024-06-09 01:41 | External Medical Summary ---
Author Name Unknown Address Unknown Organization [id number]:LABORATORY [facility] [place] - [address] [place] [address] Laboratory Report Ordering Provider Test Date Status JA TAN 03/03/2024 08:06:04 Final Observation Date Value Abnormality Reference (Units ) Status Creatinine 03/03/2024 08:06:04 0.5 0.5-1.0 (mg/dL) Final Glomerular filtration rate/1.73 sq M.predicted [Volume Rate/Area] in Serum, Plasma or Blood by Creatinine-based formula (CKD-EPI) 03/03/2024 08:06:04 >90 >=60 (mL/min) Final eGFR is calculated based on the CKD-EPI 2020 equation. Performing Location LABORATORY [facility] [place] - [address] [place] [address]
--- OUTSIDE RECORDS SUMMARY | 2024-06-09 01:41 | External Medical Summary ---
Author Name Unknown Address Unknown Organization [id number]:[facility] [place] [address] [facility] [address] Laboratory Report Ordering Provider Test Date Status JA TAN 03/03/2024 08:06:04 Final Observation Date Value Abnormality Reference (Units ) Status Iron 03/03/2024 08:06:04 47 33-151 (ug/dL) Final Iron-binding capacity 03/03/2024 08:06:04 345 250-425 (ug/dL) Final Transferrin Sat % 03/03/2024 08:06:04 14 Below low normal 15-55 (%) Final Performing Location [facility] [place] [facility] [address] [facility] [address]
--- OUTSIDE RECORDS SUMMARY | 2024-06-09 01:41 | External Medical Summary | Summary of Care ---
Author Name Unknown Organization [facility] Address [address] [place] [address] Phone [phone] Care Team Providers Care Toddler Lead Teacher Name Role Phone Vipul Adams MD Primary Care Provid er Reason for Visit * Reason Comments Outpatient Testing Encounter Details Date Type Department Care Team (Late st Contact Info) Description 03/03/2024 8:20 AM EST Laboratory Laboratory, [facility] [address] [place] [address] [facility] [address] [place] [address] Encounter for supervision of other normal , [...] information was shared with the patient. The [place] College of Obstetrics and Gynecology, Society for Maternal- Medicine, CDC and multiple medical associations strongly recommend the COVID-19 vaccine for women who are in any trimester, those attempting to become , women who have recently delivered, who are lactating as well as any other woman, regardless of age or HAY STACKER disorder. The only exceptions to receiving the vaccine are for those who have a contraindication or allergy to the vaccine or any component of the vaccine or with sincerely held lutheran convictions. The CDC and ACOG encourages a [...] 01/07/2024 Overview (09/16/2021): Blood management referral at [facility] Seizure disorder during preg checo in first [...] money to get more. 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 Not on file Not on file documented as of this encounter Plan of Treatment Upcoming Encounters Date Type Department Care Team (Late st Contact Info) Description 03/17/2024 8:30 AM EST [facility] [address] [place] [address] Sandra Huerta CRNP [address] [place] [address] Pending Results Name Type Priority Associated Diagnoses Date /Time CBC WITH WBC DIFFERENTIAL AND ANEMIA REFLEX WORKUP Lab Routine Encounter for supervision of other normal , unspecified trimester 03/03/2024 8:06 AM EST SYPHILIS ANTIBODY SCREEN WITH REFLEX TO RPR Lab Routine Encounter for supervision of other normal , unspecified trimester 03/03/2024 8:06 AM EST ANEMIA CBC Lab Routine Encounter for supervision of other normal , unspecified trimester 03/03/2024 8:06 AM EST DIFFERENTIAL, AUTOMATED Lab Routine Encounter for supervision of other normal , unspecified trimester 03/03/2024 8:06 AM EST ANEMIA REFLEX CHEMISTRY HOLD Lab Routine Encounter for supervision of other normal , unspecified trimester 03/03/2024 8:06 AM EST SYPHILIS ANTIBODY SCREEN Lab Routine Encounter for supervision of other normal , unspecified trimester 03/03/2024 8:06 AM EST Health Maintenance Due Date Last [...] documented as of this encounter Care Teams Toddler Lead Teacher Relationship Specialty Start Date End Date Vipul Adams MD [address] [place] [address] PCP - General Family Medicine 10/04/23 documented as of this encounter
--- OUTSIDE RECORDS SUMMARY | 2024-06-09 01:41 | External Medical Summary ---
Author Name Unknown Address Unknown Organization [id number]:LABORATORY [facility] [place] - [address] [place] [address] Laboratory Report Ordering Provider Test Date Status JA TAN 03/03/2024 08:06:04 Final Observation Date Value Abnormality Reference (Units ) Status Vitamin B12 03/03/2024 08:06:04 [phone] (pg/mL) Final Performing Location LABORATORY [facility] [place] - [address] [place] [address]
--- OUTSIDE RECORDS SUMMARY | 2024-06-09 01:41 | External Medical Summary ---
Author Name Unknown Address Unknown Organization [id number]:LABORATORY [facility] [place] - [address] [place] [address] Laboratory Report Ordering Provider Test Date Status JA TAN 03/03/2024 08:06:04 Final Observation Date Value Abnormality Reference (Units ) Status WBC, Total 03/03/2024 08:06:04 11.85 Above high normal 4 .00-10.80 (K/uL) Final RBC 03/03/2024 08:06:04 4.02 3.85-5.15 (M/uL) Final Hemoglobin 03/03/2024 08:06:04 11.6 Below low normal 12 .0-15.3 (g/dL) Final Anemia reflex testing trigge rs on a HGB < 12.0 for Females and HGB < 13.0 for Males in accordance with the WHO Anemia Guidelines
Anemia reflex testing triggers on a HGB < 12.0 for Females and HGB < 13.0 for Males in accordance with the WHO Anemia Guidelines HCT 03/03/2024 08:06:04 37.4 36.0-45.2 (%) Final MCV 03/03/2024 08:06:04 93.0 81.5-97.5 (fL) Final MCH 03/03/2024 08:06:04 28.9 27.0-34.0 (pg) Final MCHC 03/03/2024 08:06:04 31.0 32.0-36.0 (g/dL) Final RDW 03/03/2024 08:06:04 13.2 11.5-15.5 (%) Final Platelets 03/03/2024 08:06:04 291 140-400 (K /uL) Final MPV 03/03/2024 08:06:04 11.0 6.6-11.1 ( fL) Final Nucleated erythrocytes/100 leukocytes [Ratio] in Blood by Automated count 03/03/2024 08:06:04 0 <=0 (/100 WBCs) [facility] Performing Location LABORATORY [facility] [place] - [address] [facility] [address]
--- OUTSIDE RECORDS SUMMARY | 2024-06-09 01:41 | External Medical Summary ---
Author Name Unknown Address Unknown Organization K01:[facility] [place] [facility] [address] [place] [address] Laboratory Report Ordering Provider Test Date Status JA TAN 03/03/2024 08:06:04 Final Observation Date Value Abnormality Reference (Units ) Status Retic, % (auto) 03/03/2024 08:06:04 1.94 Above high normal 0.80-1.90 (%) Final Reticulocytes, Absolute 03/03/2024 08:06:04 77.8 31.3-100.1 (K/uL) Final Reticulocyte fraction, immature 03/03/2024 08:06:04 14.9 2.5-20.6 (%) Final Reticulocyte HGB 03/03/2024 08:06:04 31.2 29.7-37.4 (pg) Final Performing Location [facility] [place] [address] [place] [address]
--- OUTSIDE RECORDS SUMMARY | 2024-06-09 01:41 | External Medical Summary ---
Author Name Unknown Address Unknown Organization K01:[facility]ORY [facility] [place] - [address] [place] [address] Laboratory Report Ordering Provider Test Date Status JA TAN 03/03/2024 08:06:04 Final Observation Date Value Abnormality Reference (Units ) Status SYNC LEUKOCYTES IN BLOOD BY AUTOMATED COUNT 03/03/2024 08:06:04 11.85 Above high normal 4.00-10.80 (K/uL) Final Segs 03/03/2024 08:06:04 76.8 Above high normal 40.0-75.0 (%) Final Lymphs % 03/03/2024 08:06:04 14.3 Below low normal 18.0-42.0 (%) Final Monos 03/03/2024 08:06:04 5.7 1.0-11.0 (%) Final Eosinophils 03/03/2024 08:06:04 2.2 0.0-6.0 (%) Final Basos 03/03/2024 08:06:04 0.4 0.0-2.0 (%) Final Immature Granulocyte, Percent 03/03/2024 08:06:04 0.6 0.0-2.0 (%) Final Absolute Segs 03/03/2024 08:06:04 9.10 Above high normal 1.80-7.70 (K/uL) Final Lymphs, absolute 03/03/2024 08:06:04 1.69 1.00-4.80 (K/ul) Final Monos, Abs 03/03/2024 08:06:04 0.68 0.00-1.10 (K/uL) Final Eos, Abs 03/03/2024 08:06:04 0.26 0.00-0.70 (K/uL) Final Basos, Abs 03/03/2024 08:06:04 0.05 0.00-0.20 (K/uL) Final Immature Granulocytes, Number 03/03/2024 08:06:04 0.07 0.00-0.20 (K/uL) Final Performing Location LABORATORY [facility] [place] - [address] [facility] [address]
--- OUTSIDE RECORDS SUMMARY | 2024-06-09 01:41 | External Medical Summary ---
Author Name Unknown Address Unknown Organization K01:LABORATORY [facility] [place] - [address] [place] [address] Laboratory Report Ordering Provider Test Date Status JA TAN 03/03/2024 08:06:04 Final Observation Date Value Abnormality Reference (Units ) Status Treponema pallidum Ab [Presence] in Serum by Immunoassay 03/03/2024 08:06:04 Nonreactive Nonreactive Final No serologic evidence of syp hilis. No additional testing clinicially indicated at this time. Consider repeat testing in 2-4 weeks if acute or primary syphilis is suspected. Performing Location LABORATORY [facility] [place] - [address] [place] [address]
--- OUTSIDE RECORDS SUMMARY | 2024-06-09 01:42 | External Medical Summary | Summary of Care ---
Author Name Unknown Organization [facility] Address [address] [facility] [place] [address] Phone [phone] Care Team Providers Care Creative Assistant Name Role Phone Vipul Adams MD Primary Care Provid er Encounter Details Date Type Department Care Team (Late st Contact Info) Description 02/14/2024 Telephone Gynecology/Obstetrics [facility] [address] [place] [address] Gladys Shelton PA-C [address] [place] [address] Allergies No known active allergiesdocumented as of this encounter (statuses as of 02/14/2024) Medications Albuterol Sulfate (ALBUTEROL HFA) 108 (90 [...] as of this encounter (statuses as of 02/14/2024) Active Problems Problem Noted Date Diagnosed Date [...] information was shared with the patient. The [place] [employer] of Obstetrics and Gynecology, Society for Maternal- Medicine, CDC and multiple medical associations strongly recommend the COVID-19 vaccine for women who are in any trimester, those attempting to become , women who have recently delivered, who are lactating as well as any other woman, regardless of age or COORDINATOR OF LIBRARY SERVICES disorder. The only exceptions to receiving the vaccine are for those who have a contraindication or allergy to the vaccine or any component of the vaccine or with sincerely held church convictions. The CDC and ACOG encourages a [...] as of this encounter (statuses as of 02/14/2024) Resolved Problems Problem Noted Date Diagnosed Date [...] as of this encounter (statuses as of 02/14/2024) Immunizations Name Administration Dates Next Due HPV [...] money to get more. 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 I reviewed with Gladys Shelton who looked up medication and said ok to use if she has to- avoid if has alcohol in it. Better alternative would be Sudafed if using for congestion. Pt states she doesn't typically take medication but wanted to verify just in case she needs it as she has bronchitis. documented in this encounter Plan of Treatment Upcoming Encounters Date Type Department Care Team (Late st Contact Info) Description 03/03/2024 7:45 AM EST [facility] [address] [address] Gladys Shelton PA-C [address] [place] [address] Health Maintenance Due Date Last Done Comments [...] 5 Years) and At-Risk Patients (6 to 64 Years) Completed 04/13/2022, 01/06/2016 documented as of this encounter Medical Devices Not on filedocumented as of this encounter Care Teams Creative Assistant Relationship Specialty Start Date End Date Vipul Adams MD [address] [address] PCP - General Family Medicine 10/04/23 documented as of this encounter
--- OUTSIDE RECORDS SUMMARY | 2024-06-09 01:42 | External Medical Summary | Summary of Care ---
Author Name Unknown Organization [facility] Address [address] [place] [address] Phone [phone] Care Team Providers Care Tumbler Dyeing Machine Operator Name Role Phone Vipul Adams MD Primary Care Provid er Reason for Visit * Reason Onset Date Comments Spotting with 01/10/2024 Review w [facility] Dr. Francois Encounter Details Date Type Department Care Team (Late st Contact Info) Description 01/10/2024 Telephone Gynecology/Obstetrics [facility] [place] [address] Catrachito Francois MD 132 [facility] [place] [address] Spotting with (Review with Dr. Jiménez.. Allergies No known active allergiesdocumented as of this encounter (statuses as of 01/11/2024) Medications Albuterol Sulfate (ALBUTEROL HFA) 108 (90 [...] Tablet before bedtime. Until gone.. 60 Tablet Active Additional Information Patient not taking.Reported on 11/04/2023 Bisacodyl 5 MG Oral Tablet Delayed Release (Dulcolax) Take 1 Tablet by mouth daily as needed for Constipation. Active Polyethylene Glycol 3350 17 GM Oral Packet (Miralax) Take 1 Packet by mouth in the morning. Active documented as of this encounter (statuses as of 01/11/2024) Active Problems Problem Noted Date Diagnosed Date [...] information was shared with the patient. The [employer]s and Gyne[employer], Society for Maternal- Medicine, CDC and multiple medical associations strongly recommend the COVID-19 vaccine for women who are in any trimester, those attempting to become , women who have recently delivered, who are lactating as well as any other woman, regardless of age or SUPERVISOR PHOTOENGRAVING disorder. The only exceptions to receiving the vaccine are for those who have a contraindication or allergy to the vaccine or any component of the vaccine or with sincerely held buddhist convictions. The CDC and ACOG encourages a [...] as of this encounter (statuses as of 01/11/2024) Resolved Problems Problem Noted Date Diagnosed Date [...] as of this encounter (statuses as of 01/11/2024) Immunizations Name Administration Dates Next Due DTWP - Dipth/Tet/Whole Cell Pertussis ,05/12/1991,06/03/1990,03/03,01/04/1990 HPV Vaccine, 4-Valent 02/20/2014,11/16/2013 Haemophilius B (HIB), unspecified 1990,06/03/1990,03/03/1990,01/04 Hepatitis B Vaccine 01/22/1992,09/07/1991,1991 MMR - Measles/Mumps/Rubella Vaccine 09/2011,11/06/2009,03/08/1995,02/10 Meningococcal Conjugate Vacc ine (Menactra/Menveo) 08/15/2008 OPV - Polio Virus Vaccine (Oral) 996,05/12/1991,03/03/1990,01/04 PPD 09/14/2012, 2,08/10/2011,10/18,10/01/2009 Pneumococcal Polysaccharide PPV23 (Pneumovax) 01/06/2016 Seasonal Influenza Vac., MDV , IM, 0.5 mL (Fluzone) 11/09/2013,12/21/2012,12/15/2007,01/10,01/14/2001 Seasonal Influenza Virus Vac cine, Unspecified Formulation 11/07/2017,12/06/1997,12/19/1996,12/26,11/29/1995 Seasonal Influenza, PF, 6 M & above, IM , (FluLaval or Fluzone) 01/18/2019 Seasonal Influenza, Quadriva lent, No Preserve, IM 12/11/2015 TB Jennifer Test 11/08/1991,08/05/1990 TDAP (age 10 and older)(Boostrix) 08/27/2021,10/2018 TDAP, [...] money to get more. Never true 10/21/2023 [place] Depression Scale Answer Date Recorded [place] Depression Scale Total 4 11/15/2023 The thought [...] No 10/21/2023 Does the household have a [facility] source of income? 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 Francois. He advised pelvic rest, monitoring and US for today or tomorrow, doesn't have to be seen today. Patient should call with any worsening symptoms or questions. Patient called and agreeable/verbalized understanding. Katelyn please assist with scheduling today or tomorrow. * Telephone Encounter - Castro Kincaid RN - 01/10/2024 10:38 AM EST Patient 18w4d called c/o vaginal bleeding. Is there any pain associated with your bleeding? Low pelvic discomfort comes and goes, rates 1/10, not really pain per patient Have you had a recent US? no Are you experiencing any vaginal itching, burning, ordor, or other dischage? no Have you had recent intercourse or vaginal exam? no Bleeding is light, notices mostly with wiping. Today at work Nickel sized spot on underwear. Will review with oncall provider and call patient back. Advised her to call sooner with any new or worsening symptoms. documented in this encounter Plan of Treatment Upcoming Encounters Date Type Department Care Team (Late st Contact Info) Description 01/24/2024 2:00 PM EST Imaging Radiology [facility] 2nd [facility] [place] 132 [facility] [place] [address] 02/04/2024 8:45 AM EST Office Visit Gynecology/Obstetrics [facility] 132 [facility] [place] [address] [place], MARANDA Vanegas 132 [facility] [place] [address] Health Maintenance Due Date Last Done Comments [...] Not on filedocumented as of this encounter Results * US PREG LIMITED 1 OR MORE FETUSES (01/10/2024 12:13 PM EST) Anatomical Region Laterality Modality Pelvis, Body Ultrasound 01/10/2024 12:3 7 PM EST Impressions 01/10/2024 12:35 PM EST IMPRESSION 1. Normal heart rate. 2. No acute findings. Narrative 01/10/2024 12:35 PM EST EXAM US PREG LIMITED 1 OR MORE FETUSES - 01/10/2024 12:13 pm HISTORY Spotting in : FHT, placental location COMPARISON 12/10/2023 TECHNIQUE Sonographic examination performed. FINDINGS : Persaud Presentation: Breech heart rate: 147 bpm Placenta: Anterior, no previa Cervical length: Normal Procedure Note Miles Nolasco MD - 01/10/2024 EXAM US PREG LIMITED 1 OR MORE FETUSES - 01/10/2024 12:13 pm HISTORY Spotting in : FHT, placental location COMPARISON 12/10/2023 TECHNIQUE Sonographic examination performed. FINDINGS : Persaud Presentation: Breech heart rate: 147 bpm Placenta: Anterior, no previa Cervical length: Normal IMPRESSION IMPRESSION 1. Normal heart rate. 2. No acute findings. us Catrachito Francois MD RAD ULTRASOUND Final Result documented in this encounter Visit Diagnoses Diagnosis Seizure disorder during in first trimester (HCC)- Primary Maternal asthma complicating Other current maternal conditions classifiable elsewhere, complicating , childbirth, or the puerperium, unspecified as to episode of care Genetic screening Other genetic screening COVID-19 vaccine series started Encounter for anatomic survey- Primary Seizure disorder during in first trimester (HCC) Spotting in - Primary Spotting complicating , unspecified as to episode of care or not applicable Screening for malignant neoplasm of cervix Screening for malignant neoplasm of the cervix Spotting in Spotting complicating , unspecified as to episode of care or not applicable documented in this encounter Care Teams Tumbler Dyeing Machine Operator Relationship Specialty Start Date End Date Vipul Adams MD [address] [address] PCP - General Family Medicine 10/04/23 documented as of this encounter
--- OUTSIDE RECORDS SUMMARY | 2024-06-09 01:42 | External Medical Summary | Summary of Care ---
Author Name Unknown Organization [facility] Address [address] [place] [address] Phone [phone] Care Team Providers Care Bed Spring Maker Name Role Phone Vipul Adams MD Primary Care Provid er Reason for Visit * Reason Onset Date Comments Spotting with 01/10/2024 Review w [facility] Dr. Francois Encounter Details Date Type Department Care Team (Late st Contact Info) Description 01/10/2024 Telephone Gynecology/Obstetrics [facility] [place] [address] Catrachito Francois MD 132 [facility] [place] [address] Spotting with (Review with Dr. Jiménez.. Allergies No known active allergiesdocumented as of this encounter (statuses as of 01/10/2024) Medications Albuterol Sulfate (ALBUTEROL HFA) 108 (90 [...] as of this encounter (statuses as of 01/10/2024) Active Problems Problem Noted Date Diagnosed Date [...] information was shared with the patient. 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 The only exceptions to receiving the [...] as of this encounter (statuses as of 01/10/2024) Resolved Problems Problem Noted Date Diagnosed Date [...] she had been followed by neurology at [facility]. Has had EEGs which have not [...] as of this encounter (statuses as of 01/10/2024) Immunizations Name Administration Dates Next Due DTWP [...] money to get more. Never true 10/21/2023 [place] Depression Scale Answer Date Recorded [place] Depression Scale Total 4 11/15/2023 The thought [...] No 10/21/2023 Does the household have a [facility] source of income? 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 on file Not on file documented as of this encounter Miscellaneous Notes * Addendum Note - Castro Kincaid RN [...] Description 01/24/2024 2:00 PM EST Imaging Radiology [facility] 2nd [facility] [place] [address] [place] [address] 02/04/2024 8:45 AM EST Office Visit Gynecology/Obstetrics [facility] 132 [place] [address] [place], MARANDA Vanegas [address] [place] [address] Scheduled Orders Name Type Priority Associated Diagnoses Orde r Schedule US PREG LIMITED 1 OR MORE FETUSES Medical Imaging Routine Spotting in Expected: 01/10/2024, Expires: 02/08/2025 Health Maintenance Due Date Last Done Comments [...] Screening for malignant neoplasm of the cervix documented in this encounter Care Teams Bed Spring Maker Relationship Specialty Start Date End Date Vipul Adams MD [address] [place] [address] PCP - General Family Medicine 10/04/23 documented as of this encounter
--- OUTSIDE RECORDS SUMMARY | 2024-06-09 01:42 | External Medical Summary | Summary of Care ---
Author Name Unknown Organization [facility] Address [address] [place] [address] Phone [phone] Care Team Providers Care Almond Cutting Machine Tender Name Role Phone Vipul Adams MD Primary Care Provid er Reason for Visit * Reason Comments Return Visit Encounter Details Date Type Department Care Team (Late st Contact Info) Description 02/04/2024 8:45 AM EST Office Visit Gynecology/Obstetric s [facility] [address] [facility] [place] [address] BackNanette frederick CRNP 132 [facility] [place] [address] Encounter for supervision of other normal , unspecified trimester*; Herpes simplex type 2 (HSV-2) infection affecting , antepartum Allergies No known active allergiesdocumented as of this encounter (statuses as of 02/04/2024) Medications Albuterol Sulfate (ALBUTEROL HFA) 108 (90 [...] MG Oral Tablet Take by mouth . Acti ve Famotidine 20 MG Oral Tablet Take 1 [...] Packet by mouth in the morning. Active Bisacodyl 5 MG Oral Tablet Delayed Release (Dulcolax) Take 1 Tablet by mouth daily as needed for Constipation. 02/04/20 24 Discontin ued(Medic ation List Clean Up) documented as of this encounter (statuses as of 02/04/2024) Active Problems Problem Noted Date Diagnosed Date [...] information was shared with the patient. The [place] [employer] Obstetrics and Gynecology, Society for Maternal- Medicine, CDC and multiple medical associations strongly recommend the COVID-19 vaccine for women who are in any trimester, those attempting to become , women who have recently delivered, who are lactating as well as any other woman, regardless of age or TIMBER SPOTTER disorder. The only exceptions to receiving the vaccine are for those who have a contraindication or allergy to the vaccine or any component of the vaccine or with sincerely held restoration convictions. The CDC and ACOG encourages a [...] as of this encounter (statuses as of 02/04/2024) Resolved Problems Problem Noted Date Diagnosed Date [...] as of this encounter (statuses as of 02/04/2024) Immunizations Name Administration Dates Next Due HPV [...] money to get more. 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 Had some light vaginal bleeding with BMs earlier in the week, nothing since. Denies pelvic pain. + movement. Placenta known to be anterior. Advised to call with increase in bleeding or if accompanied by pain. Scheduled for follow up anatomy scan. 4 week return MARANDA Yanez documented in this encounter Plan of Treatment Upcoming Encounters Date Type Department Care Team (Late st Contact Info) Description 02/09/2024 3:30 PM EST Imaging Radiology [place] 2nd [facility], [address] [place] [address] 03/03/2024 7:45 AM EST Office Visit Gynecology/Obstetrics [facility] [address] [place] [address] Gladys Shelton PA-C [address] [place] [address] Health Maintenance Due Date Last Done Comments [...] affecting , antepartum documented in this encounter Care Teams Almond Cutting Machine Tender Relationship Specialty Start Date End Date Vipul Adams MD [address] [address] PCP - General Family Medicine 10/04/23 documented as of this encounter
--- OUTSIDE RECORDS SUMMARY | 2024-06-09 01:42 | External Medical Summary | Continuity of Care Document ---
Author Name Unknown Organization [facility] [address] Address [address] [place] [id number] Care Team Providers Care Repair Technician Name Role Phone Bryan Donelljovitaotoniel Primary Care Physician [phone] [facility] [id number] Date(s): 02/14/24 - 02/14/24 [facility] 207 [facility] [address] [address] [phone] Discharge Disposition: Home or Self Care Attending Physician: MD Butch, Teresa Darnell Allergies, Adverse Reactions, Alerts No Known Allergies Immunizations Given and Recorded Vaccine Date Status Refusal Reason pneumococcal 20-valent conjugate vaccine 04/13/22 Given influenza virus vaccine, inactivated 11/11/21 Give n influenza virus vaccine, inactivated 01/18/19 Artem rded influenza virus vaccine, inactivated 11/09/17 Give n influenza virus vaccine, inactivated 11/02/16 Give n influenza virus vaccine, inactivated 11/26/15 Give n tetanus/diphtheria/pertuss, acel (Tdap) 08/27/21 R ecorded tetanus/diphtheria/pertuss, acel (Tdap) 09/19/18 G iven tetanus/diphtheria/pertuss, acel (Tdap) 1 08/30/18 Recorded tetanus/diphtheria/pertuss, acel (Tdap) 2 08/15/08 Recorded SARS-CoV-2 (COVID-19) mRNA-1273 vaccine 03/20/20 G iven SARS-CoV-2 (COVID-19) mRNA-1273 vaccine 3 02/21/20 Given pneumococcal 23-valent vaccine 4 01/06/16 Recorded human papillomavirus vaccine 5 02/20/14 Recorded human papillomavirus vaccine 6 11/16/13 Recorded measles/mumps/rubella virus vaccine 7 09/30/11 Rec orded measles/mumps/rubella virus vaccine 8 11/06/09 Rec orded measles/mumps/rubella virus vaccine 9 03/08/95 Rec orded measles/mumps/rubella virus vaccine 10 02/10/91 Re corded meningococcal conjugate vaccine 11 08/15/08 Record ed poliovirus vaccine, inactivated 03/08/95 Recorded diphtheria/pertussis, whole cell/tetanus 12 03/08/95 Recorded diphtheria/pertussis, whole cell/tetanus 13 05/12/91 Recorded diphtheria/pertussis, whole cell/tetanus 14 06/03/90 Recorded diphtheria/pertussis, whole cell/tetanus 15 03/03/90 Recorded diphtheria/pertussis, whole cell/tetanus 16 01/04/90 Recorded hepatitis B adult vaccine 17 01/22/92 Recorded hepatitis B adult vaccine 18 09/07/91 Recorded hepatitis B adult vaccine 19 07/21/91 Recorded poliovirus vaccine, live, trivalent 20 05/12/91 Re corded poliovirus vaccine, live, trivalent 21 03/03/90 Re corded poliovirus vaccine, live, trivalent 22 01/04/90 Re corded haemophilus b conjugate (HbOC) vaccine 02/10/91 Re corded haemophilus b conjugate (HbOC) vaccine 06/03/90 Re corded haemophilus b conjugate (HbOC) vaccine 03/03/90 Re corded haemophilus b conjugate (HbOC) vaccine 01/04/90 Re corded 1Result Comment: 2019-09-11: Historical information-source unspecified 2Result Comment: 2019-09-11: Historical information-source unspecified 3Early/Late Reason: Early/Late Reason: System Down 4Result Comment: 2019-09-11: Historical information-source unspecified 5Result Comment: 2019-09-11: Historical information-source unspecified 6Result Comment: 2019-09-11: Historical information-source unspecified 7Result Comment: 2019-09-11: Historical information-source unspecified 8Result Comment: 2019-09-11: Historical information-source unspecified 9Result Comment: 2019-09-11: Historical information-source unspecified 10Result Comment: 2019-09-11: Historical information-source unspecified 11Result Comment: 2019-09-11: Historical information-source unspecified 12Result Comment: 2019-09-11: Historical information-source unspecified 13Result Comment: 2019-09-11: Historical information-source unspecified 14Result Comment: 2019-09-11: Historical information-source unspecified 15Result Comment: 2019-09-11: Historical information-source unspecified 16Result Comment: 2019-09-11: Historical information-source unspecified 17Result Comment: 2019-09-11: Historical information-source unspecified 18Result Comment: 2019-09-11: Historical information-source unspecified 19Result Comment: 2019-09-11: Historical information-source unspecified 20Result Comment: 2019-09-11: Historical information-source unspecified 21Result Comment: 2019-09-11: Historical information-source unspecified 22Result Comment: 2019-09-11: Historical information-source unspecified Medications Albuterol (Eqv-Proventil HFA) 90 mcg/inh inhalation aerosol Start: 03/23/22 1:49:00 PM EST, 2 puff, inhaled, q6h, Disp# 1 each, Refills: 0, Pharmacy: [facility] Start Date: 03/23/22 Status: Ordered cephalexin 500 mg oral capsule Start: 10/26/23 5:03:00 PM EDT, 1 cap, PO, tid, Disp# 15 cap, Pharmacy: [facility] Start Date: 10/26/23 Stop Date: 10/31/23 Status: Ordered fluconazole 150 mg oral tablet Start: 08/02/23 8:13:00 AM EDT, 1 tab, PO, ONCE, Disp# 2 tab, Repeat in three days, Pharmacy: [facility] [address] Start Date: 08/02/23 Status: Ordered norethindrone 0.35 mg oral tablet TAKE 1 TABLET BY MOUTH IN THE MORNING Start Date: 04/13/22 Status: Ordered One A Day Women's Complete oral tablet Start: 01/23/21 4:56:00 PM EST, 1 tab, PO, Daily, Disp# 100 tab, Refills: 10, given to patient Start Date: 01/23/21 Status: Ordered Pepcid Start: 09/07/17 4:34:00 PM EDT, 20 mg =, PO, Daily, PRN Start Date: 09/07/17 Status: Ordered Valtrex 1 g oral tablet Start: 04/20/23 12:02:00 PM EST, See Instructions, Disp# 12 tab, Refills: 3, 1 tab PO BID x 2 days as needed for outbreak, Pharmacy: [id number] Start Date: 04/20/23 Status: Ordered Problem List Condition Confirmation Course Effective Dates Status Health St atus Informant Mood changes Confirmed Active Hypokalemic periodic paralysis Confirmed Active GERD without esophagitis Confirmed Active 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 History of fainting spells of unknown cause Confirmed Active Syncope and collapse Confirmed Active Mild intermittent asthma without complication Confirmed Active Seborrheic dermatitis Confirmed Active Weight disorder Confirmed Active 1Right 3rd digit and midback, usually 1/year Procedures Procedure Date Related Diagnosis Body Site Status PFT 1 07/28/22 Completed Echocardiogram 2 09/02/[address] angiography of head and neck 3 09/01/[address] angiography of neck vessels 4 09/01/[address] of brain without contrast 5 09/01/19 Completed EEG 6 09/01/19 Completed MRI of brain with contrast 7 09/01/[address] of head without contrast 8 08/30/19 Completed Electrocardiogram 9 08/30/19 Compl eted 1no obstructive lung dysfunction insignificant bronchodilator response flow volume loop within normal 2The left ventricle is normal in size There is normal left ventricular wall thickness The left ventricular wall motion is normal Left ventricular systolic function is normal Ejection Fraction = 60-65% There is no significant valvular disease 31. There is no hemorrhage, mass effect, or evidence of acute territorial ischemia by CT criteria noting angiographic phase technique. 2. Unremarkable CT angiogram of the brain. 4No significant stenosis, occlusion, or dissection identified within the carotid or vertebral arteries. 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 6This is a normal awake and drowsy EEG. There is no evidence of focal slowing or epileptiform activity. 7Normal study 8No acute intracranial hemorrhage, midline shift, intra-axial mass, hydrocephalus, territorial ischemia or abnormal extra-axial collection. Suggestion of a peripherally calcified pineal gland cyst which appears similar to comparison. 9Sinus rhythm with marked sinus arrhythmia Otherwise normal ECG Social History Social History Type Response Tobacco Former smoker, Cigar ettes, 1 per day. 1 Smoking Status Never smoked cigaret marleny Sex Female Sex Representation Female (finding) 1Socially 2009-12 Patient Care team information Care Team Personnel Name: MD Clement Jonathan D Position: Physician - Family Med Member Role: Lifetime Relationship Address: [address] [place] [address] Name: MD Bryan, Vipul Position: Physician - Family Med Member Role: Primary Care Provider Address: [address] [place] [address] Name: KERRI Triana, Nadia Position: Lastex Operator Member Role: Lastex Operator Care Team Related Persons Name: HÉCTOR CABRALES Name: MIKEY GREEN Name: LAMAR PORTER
--- OUTSIDE RECORDS SUMMARY | 2024-06-09 01:42 | External Medical Summary | Summary of Care ---
Author Name Unknown Organization [facility] Address [address] [place] [address] Phone [phone] Care Team Providers Care Financial Institution President Name Role Phone Vipul Adams MD Primary Care Provid er Reason for Visit * Reason Onset Date Comments Spotting with 01/10/2024 Review w [facility] Dr. Francois Encounter Details Date Type Department Care Team (Late st Contact Info) Description 01/10/2024 Telephone Gynecology/Obstetrics [facility] [address] [facility] [place] [address] Catrachito Francois MD 132 [facility] [place] [phone] Spotting with (Review with Dr. Jiménez.. Allergies [...] information was shared with the patient. The [employer], Society for Maternal- Medicine, CDC and multiple medical associations strongly recommend the COVID-19 vaccine for women who are in any trimester, those attempting to become , women who have recently delivered, who are lactating as well as any other woman, regardless of age or COURT RECORDING MONITOR disorder. The only exceptions to receiving the vaccine are for those who have a contraindication or allergy to the vaccine or any component of the vaccine or with sincerely held yarsani convictions. The CDC and ACOG encourages a [...] money to get more. Never true 10/21/2023 [place] Depression Scale Answer Date Recorded [place] Depression Scale Total 4 11/15/2023 The thought [...] No 10/21/2023 Does the household have a [facility] source of income? 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 on file Not [...] Description 01/24/2024 2:00 PM EST Imaging Radiology [facility] 2nd [facility] [place] [address] [place] [address] 02/04/2024 8:45 AM EST Office Visit Gynecology/Obstetrics [facility] [address] [place] [address] Backer, MARANDA Vanegas [address] [place] [address] Scheduled Orders Name Type Priority Associated Diagnoses [...] cervix documented in this encounter Care Teams Financial Institution President Relationship Specialty Start Date End Date Vipul Adams MD [address] [place] [address] PCP - General Family Medicine 10/04/23 documented as of this encounter
--- OUTSIDE RECORDS SUMMARY | 2024-06-09 01:42 | External Medical Summary | Summary of Care ---
Author Name Unknown Organization [facility] Address [address] [place] [address] Phone [phone] Care Team Providers Care Water Server Name Role Phone Vipul Adams MD Primary Care Provid er Reason for Visit * Reason Comments Return Visit Encounter Details Date Type Department Care Team (Late st Contact Info) Description 01/07/2024 8:45 AM EST Office Visit Gynecology/Obstetric s [facility] [address] [facility] [place] [address] BackNanette frederick CRNP [address] [place] [address] Encounter for supervision of other normal , unspecified trimester* Allergies No known active allergiesdocumented as of this encounter (statuses as of 01/07/2024) Medications Albuterol Sulfate (ALBUTEROL HFA) 108 (90 [...] as of this encounter (statuses as of 01/07/2024) Active Problems Problem Noted Date Diagnosed Date [...] information was shared with the patient. The [employer] [employer]s [employer] Gyne[employer], Society for Maternal- Medicine, CDC and multiple medical associations strongly recommend the COVID-19 vaccine for women who are in any trimester, those attempting to become , women who have recently delivered, who are lactating as well as any other woman, regardless of age or PEPPER CUTTER disorder. The only exceptions to receiving the vaccine are for those who have a contraindication or allergy to the vaccine or any component of the vaccine or with sincerely held mandaeism convictions. The CDC and ACOG encourages a [...] as of this encounter (statuses as of 01/07/2024) Resolved Problems Problem Noted Date Diagnosed Date [...] had been followed by neurology at [facility]. Has had EEGs which have not [...] as of this encounter (statuses as of 01/07/2024) Immunizations Name Administration Dates Next Due HPV [...] money to get more. 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 Some light spotting yesterday and this AM, no pain. Continue to monitor and call office if increases, or if pain occurs. Declines genetic testing. Will schedule anatomy scan. MARANDA Yanez * Carleen Valladares LPN - 01/07/2024 8:48 AM EST 18w1d Pt states she noticed some light bleeding yesterday morning. Very light this morning Denies abdominal pain. + lower back pain Denies ROM Absent movement documented in this encounter Plan of Treatment Upcoming Encounters Date Type Department Care Team (Late st Contact Info) Description 01/24/2024 2:00 PM EST Imaging Radiology [facility] 2nd [facility] [place] [address] [place] [address] 02/04/2024 8:45 AM EST Office Visit Gynecology/Obstetrics [facility] [address] [place] [address] Backer, MARANDA Vanegas [address] [place] [address] Scheduled Orders Name Type Priority Associated Diagnoses Orde r Schedule US PREG SINGLE/1ST GEST, 14 WEEKS OR LATER Medical Imaging Routine Encounter for supervision of other normal , unspecified trimester Expected: 01/21/2024 (Approximate), Expires: 02/05/2025 Health Maintenance Due Date Last Done Comments HPV (Gardasil) Vaccine (3 - 3-dose series) 05/16/2014 02/20/2014, 02/20/2014, 11/16/2013, Additional history exists HPV/Co-Test 11/02/2019 Depression Screening 03/20/2020 03/20/2019 COVID-19 Vaccine (2023-2 5 season) 2023 Influenza Vaccine (FLU shot) (#1) 2023 01/18/2019, 01/18/2019, 11/07/2017, Additional history exists Cervical Cancer Screening 04/08/2024 Pap Smear 04/08/2024 04/08/2021, 11/23, 12/14/2014, Additional history exists DTap/Tdap Vaccines (9 - Td o r Tdap) 08/28/2031 08/27/2021, 08/30/2018, 08/15/2008, Additional history exists Hepatitis B Vaccine Completed 01/22/1992, 01/22/1992, 09/07/1991, Additional history exists MENINGOCOCCAL (MENACTRA/MENVEO) Completed 9, 08/15/2008 Pneumococcal Vaccine: Pediat rics (0 to 5 [...] of other normal , unspecified trimester- Primary documented in this encounter Care Teams Water Server Relationship Specialty Start Date End Date Vipul Adams MD [address] [address] PCP - General Family Medicine 10/04/23 documented as of this encounter
--- OUTSIDE RECORDS SUMMARY | 2024-06-09 01:42 | External Medical Summary | Summary of Care ---
Author Name Unknown Organization [facility] Address [address] [place] [address] Phone [phone] Care Team Providers Care Supply Teacher Name Role Phone Vipul Adams MD Primary Care Provid er Reason for Visit * Reason Onset Date Comments Spotting with 01/10/2024 Review w [facility] Dr. Francois Encounter Details Date Type Department Care Team (Late st Contact Info) Description 01/10/2024 Telephone [facility]necology[facility]st[facility] [place] [address] Catrachito Francois MD 132 [facility] [place] [address] Spotting with (Review with Dr. Jiménez.. Allergies [...] information was shared with the patient. The [place] [employer]st[employer]s [employer] Gyne[employer], Society for Maternal- Medicine, CDC and multiple medical associations strongly recommend the COVID-19 vaccine for women who are in any trimester, those attempting to become , women who have recently delivered, who are lactating as well as any other woman, regardless of age or SOA ARCHITECT disorder. The only exceptions to receiving the vaccine are for those who have a contraindication or allergy to the vaccine or any component of the vaccine or with sincerely held presybeterian convictions. The CDC and ACOG encourages a [...] money to get more. Never true 10/21/2023 [place] Depression Scale Answer Date Recorded [place] Depression Scale Total 4 11/15/2023 The thought [...] No 10/21/2023 Does the household have a [facility] source of income? 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 file [...] Team (Late st Contact Info) Description 01/10/2024 12:15 PM EST Imaging Radiology [address] [place] [address] 01/24/2024 2:00 PM EST Imaging Radiology [facility] 2nd [facility] [address] [facility] [place] [address] 02/04/2024 8:45 AM EST Office Visit Gynecology/Obstetrics [address] [place] [address] Backer, Nanette HeardMARANDA galeas [address] [place] [address] Scheduled Orders Name Type Priority Associated Diagnoses [...] cervix documented in this encounter Care Teams Supply Teacher Relationship Specialty Start Date End Date Vipul Adams MD [address] [place] [address] PCP - General Family Medicine 10/04/23 documented as of this encounter
[2024-06-09 06:29] LABS: Hematocrit (blood only) 30.4 % (37.0-47.0); Hemoglobin 10.1 g/dl (12.0-16.0); Mean Corpuscular Hemoglobin 28.1 pg (25.0-34.0); Mean Corpuscular Hgb Conc 33.2 g/dL (32.0-36.0); Mean Corpuscular Volume 84.7 fL (80.0-100.0); Mean Platelet Volume 10.9 fL (9.4-12.4); Platelet Count 225 K/uL (130-400); RDW Coefficient of Variation 14.3 % (11.5-14.5); Red Blood Count 3.59 M/uL (4.20-5.40)
[2024-06-09] MEDS: FERROUS SULFATE 325 MG TAB PO SCH (08:59)
[2024-06-09] MEDS: PRENATAL VITAMIN 1 TAB PO SCH (08:59)
[2024-06-09] MEDS ORDERED: NON-FORMULARY MEDICATION (Prenat.Vits,Cal,Min-Iron-Folic Tablet) PO SCH (09:00)
[2024-06-09] MEDS: ASCORBIC ACID 500 MG TAB PO SCH (09:00)
[2024-06-09] MEDS ORDERED: NON-FORMULARY MEDICATION (Ferrous Sulfate [Iron] 325 mg (65 mg iron) Tablet) PO SCH (09:00)
--- NOTE | 2024-06-09 10:33 | Obstetrical Progress Note ---
Date of Service June 09, 2024 Assessment & Plan Admission and Anticipated Discharge Date Admission Date: June 08, 2024 Subjective Patient is seen and examined. She feels well, no complaints. Ambulating without dizziness Voiding without difficulty Tolerating regular diet with out N&V Bleeding is minimal No fever/ chills/ CP/ SOB/ N&V/ Leg pain Breast feeding without problems Lab Results 06/08/24 06/09/24 Range/Units 16:35 05:54 WBC 13.15 H 15.50 H (4.8-10.8) K/ul RBC 3.90 L 3.59 L (4.20-5.40) M/uL Hgb 11.1 L 10.1 L (12.0-16.0) g/dl Hct 32.6 L 30.4 L (37.0-47.0) % MCV 83.6 84.7 (80.0-100.0) fL MCH 28.5 28.1 (25.0-34.0) pg MCHC 34.0 33.2 (32.0-36.0) g/dL RDW Std Deviation 43.8 44.0 (36.4-46.3) fL RDW Coeff of Aparna 14.5 14.3 (11.5-14.5) % Plt Count 262 225 (130-400) K/uL MPV 10.7 10.9 (9.4-12.4) fL Treponema pallidum Ab Negative (Negative) Vital Signs Temp Pulse Resp BP Pulse Ox O2 Del Method 06/09/24 03:30 36.5 C 64 16 134/92 99 Room Air 06/08/24 23:10 36.7 C 78 18 121/82 99 Room Air PE: General: Alert, orientedx3, NAD Abd: soft, NT, fundus firm, below Umbilicus Perineum intact, Lochia rubra minimal Ext; NT, no edema AP: 33 yo s/p , ppd# 1 VSS Afebrile doing well Desires d/c today Continue routine care All questions were answered D/C home after 24 hours Results & Data Vital Signs (Past 12 Hours) Vital Signs Temp Pulse Resp BP Pulse Ox O2 Del Method 06/09/24 03:30 36.5 C 64 16 134/92 99 Room Air 06/08/24 23:10 36.7 C 78 18 121/82 99 Room Air
[2024-06-09 18:14] VITALS: RESP 18; O2SAT 98
[2024-06-09 18:20] VITALS: BP 111/77; PULSE 81; TEMP 98.1
[2024-06-09] MEDS ORDERED: bisacodyL 5 MG TABEC PO SCH (20:00)
== END 2024-06-09 19:05 | disposition home health service (06) | DRG 807 ==
LOC: OPB 15:58 → 4S1 15:59 → 4E2 20:15
DX: Z3A.40 40 weeks gestation of pregnancy; Z37.0 Single live birth; Z91.048 Other nonmedicinal substance allergy status; O48.0 Post-term pregnancy